=== PATIENT | male | born 1950 | race Caucasian/White ===

== ENCOUNTER 2019-09-29 14:13 | Emergency (ER) | payer OTHER, SELFPAY ==
[2019-09-29 14:14] VITALS: BP 186/95; PULSE 105; RESP 16; TEMP 36.8; O2SAT 98; BMI 30.2
--- NOTE | 2019-09-29 14:17 | EKG12_ITS ---
Test Reason : CP Blood Pressure : / mmHG Vent. Rate : 104 BPM Atrial Rate : 104 BPM P-R Int : 196 ms QRS Dur : 094 ms QT Int : 356 ms P-R-T Axes : 052 046 077 degrees QTc Int : 468 ms Sinus tachycardia with occasional Premature ventricular complexes Possible Left atrial enlargement Nonspecific ST and T wave abnormality Abnormal ECG Confirmed by SASHA SHANE, ARUNA ([id number]), editor book CLEM LEOS ([id number]) on 10/04/2019 8:43:51 AM Referred By: ODELL Confirmed By:MEGHANA BAEZ MD
[2019-09-29 15:49] LABS: Absolute Lymphocyte Count 1.32 X10^3/uL (0.83-4.51); Absolute Neutrophil Count 4.6 X10^3/uL (2.0-7.7); Basophil# 0.02 X10^3/uL; Basophil% 0.3 % (0-1); Eosinophil# 0.06 X10^3/uL; Eosinophils% 0.9 % (0-5); Hematocrit 45.7 % (40-54); Hemoglobin 15.5 g/dL (13.0-16.5); Lymphocyte # 1.32 X10^3/ul (4.0); Lymphocyte % 20.5 % (19-41); Mean Corp Hgb Conc 33.9 g/dL (32-36); Mean Corpuscular Hgb 30.8 pg (27.0-32.0); Mean Corpuscular Volume 90.7 fL (80-94); Mean Platelet Vol. 9.8 fl (6.2-12.0); Monocyte# 0.42 X10^3/uL; Monocyte% 6.5 % (0-10); NRBC Flagged by Analyzer 0 % (0-5); Neutrophil % 71.6 % (47-70); Platelet Count 232 K/mm3 (150-450); RBC Distribution Width CV 12.2 % (11.6-14.6); RBC Distribution Width SD 40.3 fl (35.1-43.9); Red Blood Count 5.04 M/mm3 (4.6-6.2); White Blood Count 6.4 K/mm3 (4.4-11.0)
[2019-09-29 16:02] LABS: Anion Gap 3 (5-15); BUN 14 mg/dL (7-18); BUN/Creat Ratio 11.2 RATIO (10-20); Chloride 106 mmol/L (98-107); Creatinine, Serum 1.25 mg/dL (0.70-1.30); EST Glomerular Filtration Rate 61 mL/min (>60); Est Glom Filt Rate - Afr Amer 74 mL/min (>60); Estimated Creatinine Clearance 61.08 ml/min; Glucose 194 mg/dL (74-106); Potassium 3.9 mmol/L (3.5-5.1); Sodium Level 136 mmol/L (136-145)
--- NOTE | 2019-09-29 16:06 | RAD_ITS ---
STUDY: X-RAY CHEST REASON FOR EXAM: Male, 68 years old. DIZZINESS WITH WEAKNESS NAUSEA AND CHEST PAIN TECHNIQUE: PA and lateral views of the chest. COMPARISON: 09-05-14. FINDINGS: Cardiac silhouette unremarkable. Pulmonary vascularity unremarkable. Aorta unremarkable. Median sternotomy wires and mediastinal clips are noted. Right upper quadrant surgical clips are seen. No focal airspace opacities. No pleural effusions. Right upper lobe granuloma. Upper abdomen unremarkable. Osseous structures intact. No pneumothorax. RAD/Chest PA and Lateral IMPRESSION: No acute cardiopulmonary findings Electronically Signed: Mohit Canales, at 16:29 EST Tel , Service support ,
[2019-09-29 16:29] LABS: Partial Thromboplast Time 30.8 Seconds (24.1-36.2)
--- NOTE | 2019-09-29 16:59 | ED.DCSUM_ITS ---
History of Present Illness Chief Complaint: Chest Pain Informant: Patient, Significant Other Onset: Month(s) - 2 Timing: Intermittent, Lasts - seconds-minutes Quality: soreness Location: left chest Current Severity: gone Maximum Severity: Mild Worsened by: nothing Relieved by: nothing in particular Associated Symptoms: intermittent vertigo/spinning w/ nausea, fatigue, sweats Narrative: Patient presenting with intermittent dizziness that is spinning in nature and triggered with position/head movements, they have been intermittent for 2 months. He saw ENT for this in the past and had wax cleaned out of his ears which helped it, so he did that 2 or 3 weeks ago, seen Dr. Kumar, had wax cleaned out of his ears but states episodes are still occurring. He was advised that if this occurs, to return to him for reevaluation. He denies any tinnitus, headaches or focal neurologic symptoms with it. His vision spins around when he has symptoms but he denies diplopia. Separate from this, he gets occasional left-sided chest discomfort that is nonpleuritic and last for seconds at a time. He states for couple months he has felt like he is not well rested in the mornings and tired, he states he feels fine right now and has none of these symptoms currently but when he had an episode of fatigue earlier and not feeling well, due to vertigo according to the patient and had some sweating, his family convinced him to come be evaluated. He had a STEMI at his last visit here 2014, and was transferred emergently to [place] in [place], where the patient states subsequently he had a 5 way bypass. He states he follows with his PCP ever since then, has not seen a varnish mixer, and does not take aspirin other than the 4 baby aspirin that were given to him by EMS today. - Past Medical History (1) CAD (coronary artery disease) Status: Chronic Past Medical History - Allergies and Home Meds Allergies/Adverse Reactions: Allergies No Known Allergies Allergy (Verified 09/05/14 03:16) Primary Care Physician: Jagjit Lopez NP-C [Primary Care Provider] - Surgical History: cholecystectomy, coronary bypass surgery Lives: With Family Smoking Status: Never smoker Review of Systems General: Reports: Malaise, Sweats. Denies: Chills, Fever Eyes: Denies: Visual changes - bilaterally, Diplopia ENT: Denies: Rhinorrhea, Sore throat Cardiovascular: Reports: Chest pain. Denies: Palpitations Respiratory: Denies: Dyspnea, Cough, Dyspnea on exertion Gastrointestinal: Reports: Nausea - when vertiginous. Denies: Abdominal pain, Vomiting, Diarrhea, Melena, Hematochezia Genitourinary: Denies: Dysuria, Hematuria, Frequency Musculoskeletal: Denies: Back pain, Swelling, Extremity Pain Skin: Denies: Rash, Wounds Neurological: Reports: - - Intermittent vertigo. Denies: Headache, Weakness, Numbness Physical Exam Vital Signs/Narrative: Vital Signs Temp Pulse Resp BP Pulse Ox 09/29/19 14:14 98.2 F 105 H 16 186/95 H 98 Inital Vital Signs reviewed: Yes General: Well nourished, Well developed, No Acute Distress Head: Normocephalic, Atraumatic Eyes: Perrl, EOMI ENT: Moist mucous membranes, No rhinorrhea, TM's clear Neck: Supple, Nontender, No lymphadenopathy, No JVD Cardiovascular: Regular rate, Regular rhythm, No murmurs Respiratory: No distress, CTA bilaterally, Chest nontender Abdomen: Soft, Nontender, Nondistended, Normal bowel sounds Back: Nontender, Normal Inspection Extremities: Nontender, No edema. Negative for: Calf Tenderness Skin: Normal color, No rash Neurological: Alert, Oriented x3, Cranial nerves II-XII grossly intact, Normal Strength, Normal Sensation, Normal Gait, - - nml FTN and HTS bilat Psychological: Normal affect, Normal Mood Diagnostic/Tx/Re-eval Impressions Chest X-Ray 09/29/19 16:06 IMPRESSION: No acute cardiopulmonary findings Electronically Signed: Mohit Canales, at 16:29 EST Tel , Service support , 09/29/19 16:06 Chest PA and Lateral [RAD] Stat Laboratory Results 09/29/19 09/29/19 09/29/19 14:42 14:42 14:42 WBC 6.4 RBC 5.04 Hgb 15.5 Hct 45.7 MCV 90.7 MCH 30.8 MCHC 33.9 RDW Std Deviation 40.3 RDW Coeff of Jennie 12.2 Plt Count 232 MPV 9.8 Immature Gran % (Auto) 0.200 Neut % (Auto) 71.6 H Lymph % (Auto) 20.5 [place] % (Auto) 6.5 Eos % (Auto) 0.9 Baso % (Auto) 0.3 Absolute Neuts (auto) 4.6 Absolute Lymphs (auto) 1.32 Nucleated RBC % 0 APTT 30.8 Sodium 136 Potassium 3.9 Chloride 106 Carbon Dioxide 27.0 Anion Gap 3 L BUN 14 Creatinine 1.25 Estim Creat Clear Calc 61.08 Est GFR (MDRD) Af Amer 74 Est GFR (MDRD) Non-Af 61 BUN/Creatinine Ratio 11.2 Glucose 194 H Calcium 9.0 Troponin I < 0.015 - Rhythm Strip Rhythm Strip: Sinus Tach Rate: 104 Ectopy: None - EKG Initial EKG Interpretation: Sinus Rhythm, No Acute Injury Pattern, - - PVCs. borderline prolonged QTc. Prior: Changed - prior only EKG showed STEMI; no acute injury here. - Medical Decision Making Patient's work-up was unremarkable. I suspect most of his symptoms are due to peripheral vertigo, his chest discomfort is likely noncardiac, however I do recommend that he take aspirin 81 mg every day, and follow-up with 1 of our varnish mixer since he would prefer to stay in our hospital/city/system and has not seen a varnish mixer since his CABG or take an aspirin. He has no history of internal bleeding or other life-threatening bleeding. I advised that he follow-up with ENT. I do not think he needs to be admitted for the symptoms that are been intermittent for 2 months with a negative work-up at this time. Patient is comfortable with this plan, and agrees to prn meclizine, which I prescribed him. ED Disposition - Plan for ED Patient: Disposition: Home or Assisted Living Diagnosis: Intermittent left-sided chest pain, Peripheral vertigo, unspecified Instructions: CHEST PAIN, Uncertain Cause, VERTIGO, Unspecified Prescriptions: Meclizine HCl [Antivert] 25 mg PO TID PRN PRN #16 tab PRN Reason: Dizziness Transmission Status: Pending to [id number] Referrals: Jagjit Lopez, TIERRA-C [Primary Care Provider] - Jose North MD [STAFF PHYSICIAN] - (Call for appointment) Stewart Kumar MD [STAFF PHYSICIAN] - (Call for appointment) Additional Instructions: Take daily aspirin 81 mg until you see cardiology or you are told otherwise
[2019-09-29 17:03] VITALS: BP 154/99; PULSE 85; RESP 16; O2SAT 94
== END 2019-09-29 17:23 | disposition home or self-care (01) ==
PROVIDERS: Emergency Provider Emergency Medicine; PCP Nurse Practitioner Family
DX: R07.89 Other chest pain (principal); H81.399 Other peripheral vertigo, unspecified ear; I25.10 Atherosclerotic heart disease of native coronary artery without angina pectoris; I25.2 Old myocardial infarction; Z95.1 Presence of aortocoronary bypass graft
CPT/HCPCS: 71046; 80048; 84484; 85025; 85730; 93005; 99285; A4216

== ENCOUNTER 2020-06-14 20:41 | Emergency (ER) | payer MEDICARE, OTHER, SELFPAY ==
[2020-06-14 20:55] VITALS: BP 136/80; PULSE 110; RESP 17; TEMP 37.7; O2SAT 93; BMI 26.1
[2020-06-14 21:00] VITALS: BP 122/90; PULSE 109; RESP 22; TEMP 37.7; O2SAT 94
--- NOTE | 2020-06-14 21:21 | ED.RN ---
PULLED OLD SYL FOR
--- NOTE | 2020-06-14 21:25 | RAD_ITS ---
STUDY: X-RAY CHEST REASON FOR EXAM: Male, 69 years old. Fever x1 wk, cough. TECHNIQUE: Single frontal view of the chest. COMPARISON: 09/29/2019 FINDINGS: There are nonspecific opacities within the mid and lower lungs bilaterally. Sternal cerclage wires are present from a prior sternotomy. The cardiac silhouettes within normal limits. Normal mediastinum and alem. Normal visualized pulmonary arteries. Normal visualized aortic arch and descending thoracic aorta. Normal visualized thoracic spine. Normal visualized ribs, clavicles, and shoulders. There are surgical clips within the right upper quadrant of the abdomen and cystoscopy with prior cholecystectomy. RAD/Chest 1 View (Portable) IMPRESSION: Nonspecific bilateral opacities may be secondary to a multifocal pneumonia. Electronically Signed: Liz Hua MD at 21:54 EST Tel , Service support ,
--- NOTE | 2020-06-14 21:27 | ED.DCSUM_ITS ---
- ER Visit Summary Date of Service: 06/14/20 Chief Complaint: Fever for a week. History of Present Illness: The patient is a 69 M history of prior throat cancer, CAD, IA and 5 way bypass. Patient states for the last week since last has had a fever between 101 - 106. He denies nausea vomiting diarrhea. He denies dysuria or hematuria. He denies chest pain. He denies cough or shortness of breath. He denies any abdominal pain. Says he never had a fever like this before. Physical Examination: Appearing older male no acute distress vital signs stable. Current temperature nine 9.8. Pulse ox 94% on room air no signs hypoxia. HEENT exam unremarkable. Moist mucous membranes. Neck nontender no lymphadenopathy. Lungs clear to auscultation bilaterally. Heart regular rhythm rate about 107. Abdomen soft nontender normal bowel sounds no peritoneal signs. Extremities moves all 4. No edema. Back nontender. Skin unremarkable. Neurologically is awake alert with no focal motor deficits. Test Results: Chest x-ray shows bilateral infiltrates consistent with either patchy pneumonia or Covid pneumonia most likely Covid pneumonia. Portable 1 view film read both myself and the radiologist. EKG sinus tachycardia rate of 107 no acute signs of IA or ischemia. CBC shows a white count of 7. Hemoglobin of 14 no bands. Chemistry sodium 131 normal gap BUN of 21 creatinine 1.2. Liver enzymes normal. UA normal. Lactate 1.1. Blood cultures pending. Covid pending. Emergency Department Course and Treatment: Patient should undergo work-up for Covid and fever of unknown etiology. Will be treated with IV fluids. Repeat exam patient is doing well at 2315. He is comfortable being discharged home. He stable vital signs. Is not complaining of any shortness of breath. Treatment Plan: 1 dose of Zithromax in the emergency department p.o. Zithromax at home for possible bacterial pneumonia but most likely this is Covid pneumonitis. Tylenol for fever. Follow-up with his primary care provider. Return if worse. Disposition: dc Impression: Acute fever Covid pneumonitis This note was generated with [employer] software. It may contain incorrect words, spelling, and punctuation that were not noted in review of the chart prior to signing ED Disposition - Plan for ED Patient: Referrals: Jagjit Lopez ADMINISTRATIVE VOLUNTEER, ADMINISTRATIVE VOLUNTEER-C [Primary Care Provider] -
--- NOTE | 2020-06-14 21:35 | EKG12_ITS ---
Test Reason : SOB Blood Pressure : / mmHG Vent. Rate : 107 BPM Atrial Rate : 107 BPM P-R Int : 160 ms QRS Dur : 096 ms QT Int : 328 ms P-R-T Axes : 046 039 056 degrees QTc Int : 437 ms Sinus tachycardia Otherwise normal ECG Confirmed by TIFF SHANE, SEBASTIAN ([id number]), editorial manager CLEM LEOS ([id number]) on 06/20/2020 8:38:32 AM Referred By: PABLO Confirmed By:SEBASTIAN MATTHEW MD
[2020-06-14 21:41] VITALS: BP 133/79; PULSE 95; RESP 24; O2SAT 94
[2020-06-14 21:44] LABS: Absolute Lymphocyte Count 0.41 X10^3/uL (0.83-4.51); Absolute Neutrophil Count 7.1 X10^3/uL (2.0-7.7); Basophil# 0.02 X10^3/uL; Basophil% 0.3 % (0-1); Hemoglobin 14.6 g/dL (13.0-16.5); Lymphocyte # 0.41 X10^3/ul (4.0); Lymphocyte % 5.2 % (19-41); Mean Corpuscular Hgb 30.9 pg (27.0-32.0); Mean Corpuscular Volume 91.1 fL (80-94); Mean Platelet Vol. 9.8 fl (6.2-12.0); Monocyte# 0.41 X10^3/uL; Monocyte% 5.2 % (0-10); NRBC Flagged by Analyzer 0 % (0-5); Neutrophil # 7.08 X10^3/uL (2.7-7.7); POSITIVE DIFFERENTIAL YES; Platelet Count 255 K/mm3 (150-450); RBC Distribution Width CV 12.1 % (11.6-14.6); RBC Distribution Width SD 40.2 fl (35.1-43.9); Red Blood Count 4.72 M/mm3 (4.6-6.2); White Blood Count 7.9 K/mm3 (4.4-11.0)
[2020-06-14 21:45] LABS: Differential Indicated SCAN CRITERIA MET
[2020-06-14 21:57] LABS: ALB/GLOB Ratio 0.7 RATIO (0.9-2.4); AST(SGOT) 25 U/L (15-37); Alanine Aminotransfer ALT/SGPT 35 U/L (16-61); Albumin, Serum 3.1 g/dL (3.2-5.0); Alkaline Phosphatase 116 U/L (45-117); Anion Gap 7 (5-15); BUN 21 mg/dL (7-18); BUN/Creat Ratio 17.2 RATIO (10-20); Calcium,Total 8.7 mg/dL (8.5-10.1); Chloride 99 mmol/L (98-107); Creatinine, Serum 1.22 mg/dL (0.70-1.30); EST Glomerular Filtration Rate 63 mL/min (>60); Est Glom Filt Rate - Afr Amer 76 mL/min (>60); Estimated Creatinine Clearance 61.72 ml/min; Globulin 4.3 g/dL (2.2-4.2); Glucose 147 mg/dL (74-106); Lactic Acid 1.1 mmol/L (0.4-1.9); Potassium 3.9 mmol/L (3.5-5.1); Protein, Total 7.4 g/dL (6.4-8.2); Sodium Level 131 mmol/L (136-145)
[2020-06-14 22:00] VITALS: BP 133/79; PULSE 95; RESP 24; TEMP 37.1; O2SAT 96
[2020-06-14 22:15] LABS: Bacteria 0 SEEN /hpf (None Seen); Mucous, Urine 0 SEEN /hpf (<or=2+); White Blood Cells 0 SEEN /hpf (0-5)
[2020-06-14 22:26] LABS: Differential Comment SCANNED
[2020-06-14 22:26] LABS: Color, Urine Yellow (Yellow); Glucose, Dipstick Normal (Normal); Ketone-Dipstick Negative (Negative); Leukocyte Esterase-Dipstick Negative /ul (Negative); Nitrite-Dipstick Negative (Negative); Occult Blood-Urine 25 /ul (Negative); Protein-Dipstick 30 mg/dl (Negative); Specific Gravity, Urine 1.015 (1.002-1.030); Urine Bilirubin Dipstick Negative (Negative); Urine Clarity Clear (Clear); Urine Urobilinogen Normal (Normal)
[2020-06-14 22:43] LABS: Squamous Epithelial Cells - UA 0-5 SEEN /hpf (0-5)
[2020-06-14 22:44] LABS: Red Blood Cells-Urine 0-5 SEEN /hpf (0-5)
[2020-06-14 23:00] VITALS: BP 129/68; PULSE 90; RESP 25; TEMP 37.1; O2SAT 95
--- NOTE | 2020-06-14 23:17 | DCINST.ED_ITS ---
ED Disposition - Plan for ED Patient: Disposition: Home or Assisted Living Instructions: ED PNEUMONITIS Adult Prescriptions: Azithromycin [Zithromax] 250 mg PO DAILY #4 tab Prescription Printed Referrals: Jagjit Lopez NUISANCE WILDLIFE CONTROL OPERATOR, NUISANCE WILDLIFE CONTROL OPERATOR-C [Primary Care Provider] - 3-5 Days Additional Instructions: Most likely you have Covid pneumonia. We are putting you on antibiotic to treat the possibility of a bacterial pneumonia but most likely this is viral Covid pneumonia. Plenty of fluids and rest. Tylenol for fever. May use limited Motrin also. Follow-up with your primary care provider next several days. Return emerge department if feeling a lot worse.
[2020-06-14 23:46] VITALS: BP 134/73; PULSE 88; RESP 20; O2SAT 96
[2020-06-14] MEDS: Azithromycin 250 MG Tablet 500 MG PO (23:51)
== END 2020-06-15 00:03 | disposition home or self-care (01) ==
PROVIDERS: Emergency Provider Emergency Medicine; PCP Nurse Practitioner Family
DX: U07.1 COVID-19 (principal); J12.89 Other viral pneumonia; I25.2 Old myocardial infarction; I25.10 Atherosclerotic heart disease of native coronary artery without angina pectoris; Z95.1 Presence of aortocoronary bypass graft; Z85.818 Personal history of malignant neoplasm of other sites of lip, oral cavity, and pharynx
CPT/HCPCS: 71045; 80053; 81001; 83605; 85025; 87040; 87635; 93005; 99285; J7030; A4216; U0003

== ENCOUNTER 2020-06-16 08:19 | Inpatient (IN) | payer MEDICARE, OTHER, SELFPAY ==
[2020-06-16] VITALS (13 sets, daily range): BP systolic 110–139; BP diastolic 63–82; PULSE 79–114; RESP 17–28; TEMP 36.6–38.8; O2SAT 86–96; BMI 25.7; BMI 25.4
--- NOTE | 2020-06-16 09:01 | EKG12_ITS ---
Test Reason : SOB Blood Pressure : / mmHG Vent. Rate : 107 BPM Atrial Rate : 107 BPM P-R Int : 162 ms QRS Dur : 092 ms QT Int : 318 ms P-R-T Axes : 048 047 073 degrees QTc Int : 424 ms Sinus tachycardia Possible Left atrial enlargement Nonspecific T wave abnormality Abnormal ECG Confirmed by RUSLAN SHANE, SANDRA ([id number]), news video editor CLEM LEOS ([id number]) on 06/16/2020 11:04:27 AM Referred By: FLORIAN Confirmed By:SANDRA MERCER MD
[2020-06-16 09:10] LABS: Absolute Lymphocyte Count 0.25 X10^3/uL (0.83-4.51); Absolute Neutrophil Count 9.7 X10^3/uL (2.0-7.7); Basophil# 0.02 X10^3/uL; Basophil% 0.2 % (0-1); Hematocrit 41.7 % (40-54); Hemoglobin 14.2 g/dL (13.0-16.5); Lymphocyte # 0.25 X10^3/ul (4.0); Lymphocyte % 2.4 % (19-41); Mean Corp Hgb Conc 34.1 g/dL (32-36); Mean Corpuscular Hgb 31.3 pg (27.0-32.0); Mean Corpuscular Volume 91.9 fL (80-94); Mean Platelet Vol. 10.1 fl (6.2-12.0); Monocyte# 0.31 X10^3/uL; NRBC Flagged by Analyzer 0 % (0-5); Neutrophil # 9.73 X10^3/uL (2.7-7.7); Neutrophil % 93.7 % (47-70); POSITIVE DIFFERENTIAL YES; POSITIVE MORPHOLOGY YES; Platelet Count 255 K/mm3 (150-450); RBC Distribution Width CV 12.4 % (11.6-14.6); RBC Distribution Width SD 42.3 fl (35.1-43.9); Red Blood Count 4.54 M/mm3 (4.6-6.2); White Blood Count 10.4 K/mm3 (4.4-11.0)
--- NOTE | 2020-06-16 09:11 | ED.DCSUM_ITS ---
History of Present Illness Informant: Patient Onset: Days Narrative: 69-year-old male with a past medical history of ID, CABG presents with a fever, cough, and shortness of breath x1 week. He was seen here 2 days ago and had a chest x-ray showing bilateral pneumonia. Outpatient Covid test is pending. He was sent home with Zithromax and is on the third day of treatment. He states he was using home oxygen he has on hand for his daughter and it ran out. On room air he was 85%. He does not typically use oxygen. He has no history of asthma or COPD. He states his is sick with similar symptoms. He denies loss of taste or smell, chest pain, hemoptysis, abdominal pain, nausea, vomiting, diarrhea, or urinary symptoms. <Miya Tatum - Last Filed: 06/16/20 12:44> <Clifford Smallwood - Last Filed: 06/16/20 12:55> Chief Complaint: Shortness of Breath Past Medical History Past Medical History: - - ID, CABG Surgical History: cholecystectomy, coronary bypass surgery Smoking Status: Former smoker <Miya Tatum - Last Filed: 06/16/20 12:44> <Clifford Smallwood - Last Filed: 06/16/20 12:55> - Allergies and Home Meds Allergies/Adverse Reactions: Allergies No Known Allergies Allergy (Verified 06/16/20 09:02) Primary Care Physician: Jagjit Lopez INVENTORY AND PRICING ASSOCIATE, INVENTORY AND PRICING ASSOCIATE-C [Primary Care Provider] - Review of Systems General: Reports: Chills, Fever, Malaise Eyes: Denies: Visual changes - bilaterally, Diplopia ENT: Denies: Rhinorrhea, Sore throat Cardiovascular: Denies: Chest pain, Palpitations Respiratory: Reports: Dyspnea, Cough, Dyspnea on exertion. Denies: Orthopnea Gastrointestinal: Denies: Abdominal pain, Nausea, Vomiting, Diarrhea, Melena, Hematochezia Genitourinary: Denies: Dysuria, Hematuria, Frequency Musculoskeletal: Denies: Back pain, Extremity Pain Skin: Denies: Rash, Wounds Neurological: Denies: Headache, Weakness, Numbness <Miya Tatum - Last Filed: 06/16/20 12:44> Physical Exam Vital Signs/Narrative: Vital Signs Temp Pulse Resp BP Pulse Ox 06/16/20 08:23 101.9 F H 111 H 27 H 124/72 H 91 06/16/20 08:20 101.9 F H 114 H 23 H 124/72 H 86 General: Well nourished, Well developed, No Acute Distress Head: Normocephalic, Atraumatic Eyes: Perrl, EOMI ENT: Moist mucous membranes, No rhinorrhea Neck: Supple, Nontender Cardiovascular: Regular rate, Regular rhythm, No murmurs Respiratory: No distress, - - Crackles in right lung base, otherwise clear to auscultation Abdomen: Soft, Nontender, Nondistended, Normal bowel sounds Back: Nontender, Normal Inspection Extremities: Nontender, No edema Skin: Normal color, No rash Neurological: Alert, Oriented x3, Cranial nerves II-XII grossly intact Psychological: Normal affect, Normal Mood <Miya Tatum - Last Filed: 06/16/20 12:44> Vital Signs/Narrative: Vital Signs Temp Pulse Resp BP Pulse Ox 06/16/20 12:03 99.8 F H 100 17 117/74 96 06/16/20 11:30 99.8 F H 100 28 H 139/79 H 94 06/16/20 10:30 99.2 F H 101 H 28 H 130/66 H 96 06/16/20 10:28 99.2 F H 101 H 28 H 130/66 H 96 <Clifford Smallwood - Last Filed: 06/16/20 12:55> Diagnostic/Tx/Re-eval Clinical Impression(s) from Imaging Studies Chest X-Ray 06/16/20 09:20 IMPRESSION: Since prior study, there has been progressive bilateral perihilar infiltrates worse on the right side. Electronically Signed: Mat Elizalde, at 9:51 EST , Service support , Laboratory Data 06/16/20 06/16/20 06/16/20 08:21 08:21 08:21 WBC 10.4 RBC 4.54 L Hgb 14.2 Hct 41.7 MCV 91.9 MCH 31.3 MCHC 34.1 RDW Std Deviation 42.3 RDW Coeff of Jennie 12.4 Plt Count 255 MPV 10.1 Immature Gran % (Auto) 0.700 Neut % (Auto) 93.7 H Lymph % (Auto) 2.4 L [place] % (Auto) 3.0 Eos % (Auto) 0.0 Baso % (Auto) 0.2 Absolute Neuts (auto) 9.7 H Absolute Lymphs (auto) 0.25 L Nucleated RBC % 0 Differential Comment COMMENT Sodium 133 L Potassium 4.3 Chloride 101 Carbon Dioxide 26.0 Anion Gap 6 BUN 25 H Creatinine 1.14 Estim Creat Clear Calc 66.05 Est GFR (MDRD) Af Amer 82 Est GFR (MDRD) Non-Af 68 BUN/Creatinine Ratio 21.9 H Glucose 116 H Lactic Acid 1.2 Calcium 8.2 L Total Bilirubin 0.60 AST 42 H ALT 36 Alkaline Phosphatase 116 Total Protein 6.9 Albumin 2.7 L Globulin 4.2 Albumin/Globulin Ratio 0.6 L COVID-19 (LOUISE) 06/16/20 09:15 WBC RBC Hgb Hct MCV MCH MCHC RDW Std Deviation RDW Coeff of Jennie Plt Count MPV Immature Gran % (Auto) Neut % (Auto) Lymph % (Auto) [place] % (Auto) Eos % (Auto) Baso % (Auto) Absolute Neuts (auto) Absolute Lymphs (auto) Nucleated RBC % Differential Comment Sodium Potassium Chloride Carbon Dioxide Anion Gap BUN Creatinine Estim Creat Clear Calc Est GFR (MDRD) Af Amer Est GFR (MDRD) Non-Af BUN/Creatinine Ratio Glucose Lactic Acid Calcium Total Bilirubin AST ALT Alkaline Phosphatase Total Protein Albumin Globulin Albumin/Globulin Ratio COVID-19 (LOUISE) Detected - Rhythm Strip Rhythm Strip: Sinus Tach Rate: 107 Ectopy: None - Medical Decision Making Patient appears well nontoxic. He was initially 85% on room air and was placed on 3 L O2 and is maintaining 92% or above, he had sinus tachycardia in the rate of 100s, otherwise normal vitals. Normal cardiac exam. Lungs had mild expiratory wheezing. Labs show no leukocytosis, sodium 133, otherwise unremarkable. Covid positive. Chest x-ray shows interval worsening bilateral infiltrates. He was treated with Decadron, Zithromax, and Rocephin. He will need admitted for Covid pneumonia. Discussed with hospitalist who was agreeable and he was transferred to the floor in stable condition. <Miya Tatum - Last Filed: 06/16/20 12:44> - Medical Decision Making I read the patient with our physician golf course assistant. Patient was diagnosed yesterday by myself with Covid pneumonitis. Was sent home. Has oxygen at home but he no longer has oxygen. He states he is actually feeling worse and more short of breath. Physical exam elderly male on oxygen is 96%. Off O2 he is 85% and hypoxic. Temperature 99.8. He does not look septic or toxic. He is in no distress. He is actually reasonably comfortable on O2. HEENT exam unremarkable. Lungs clear to auscultation bilaterally. Heart regular rhythm no murmur. Abdomen soft nontender. Moving all 4 extremities. No edema. Neurologically is awake and alert. Patient started on IV Decadron. Spoke to the hospitalist he will be admitted to the Covid cohort unit. Impressions: 1. Acute Covid pneumonitis with hypoxia <Clifford Smallwood - Last Filed: 06/16/20 12:55> ED Disposition <Miya Tatum - Last Filed: 06/16/20 12:44> <Clifford Smallwood - Last Filed: 06/16/20 12:55> - Plan for ED Patient: Disposition: Acute Care Hospital [facility] Diagnosis: Pneumonia due to COVID-19 virus, Hypoxia Referrals: Jagjit Lopez INVENTORY AND PRICING ASSOCIATE, INVENTORY AND PRICING ASSOCIATE-C [Primary Care Provider] -
[2020-06-16 09:15] LABS: Differential Indicated SCAN CRITERIA MET
--- NOTE | 2020-06-16 09:20 | RAD_ITS ---
STUDY: X-RAY CHEST REASON FOR EXAM: Male, 69 years old. Fever, low oxygen level, recently tested for COVED, results no back yet TECHNIQUE: Single AP portable view of the chest. COMPARISON: Comparison is made with prior study dated 06/14/2020. FINDINGS: EKG electrodes are seen. Since prior study, there has been progressive bilateral perihilar infiltrates worse on the right side. Stable elevation of the right hemidiaphragm. There is no demonstrated pleural abnormality. Sternal cerclage wires and vascular clips are present from a prior sternotomy and coronary artery bypass graft procedure (CABG). Normal mediastinum and alem. Normal visualized pulmonary arteries. There is atherosclerotic tortuosity of the aortic arch and descending thoracic aorta. Normal visualized thoracic spine. Normal visualized ribs, clavicles, and shoulders. There is no demonstrated abnormality of the visualized soft tissue structures of the upper abdomen. RAD/Chest 1 View (Portable) IMPRESSION: Since prior study, there has been progressive bilateral perihilar infiltrates worse on the right side. Electronically Signed: Mat Elizalde, at 9:51 EST , Service support ,
[2020-06-16 09:27] LABS: Lactic Acid 1.2 mmol/L (0.4-1.9)
[2020-06-16 09:29] LABS: ALB/GLOB Ratio 0.6 RATIO (0.9-2.4); AST(SGOT) 42 U/L (15-37); Alanine Aminotransfer ALT/SGPT 36 U/L (16-61); Albumin, Serum 2.7 g/dL (3.2-5.0); Alkaline Phosphatase 116 U/L (45-117); Anion Gap 6 (5-15); BUN 25 mg/dL (7-18); BUN/Creat Ratio 21.9 RATIO (10-20); Calcium,Total 8.2 mg/dL (8.5-10.1); Chloride 101 mmol/L (98-107); Creatinine, Serum 1.14 mg/dL (0.70-1.30); EST Glomerular Filtration Rate 68 mL/min (>60); Est Glom Filt Rate - Afr Amer 82 mL/min (>60); Estimated Creatinine Clearance 66.05 ml/min; Globulin 4.2 g/dL (2.2-4.2); Glucose 116 mg/dL (74-106); Potassium 4.3 mmol/L (3.5-5.1); Protein, Total 6.9 g/dL (6.4-8.2); Sodium Level 133 mmol/L (136-145)
[2020-06-16] MEDS: dexAMETHasone 4 MG Tablet 6 MG PO (11:09)
[2020-06-16] MEDS: Ceftriaxone 1 GM/50 ML BAG IV (11:09)
[2020-06-16] MEDS: Acetaminophen 500 MG Tablet 1000 MG PO (12:02)
--- NOTE | 2020-06-16 12:58 | HP.PCM_ITS ---
Problem List (1) CAD (coronary artery disease) Status: Chronic Qualifiers: Coronary Disease-Associated Artery/Lesion type: unspecified vessel or lesion type [place] vs. transplanted heart: unspecified whether [place] or transplanted heart Associated angina: angina presence unspecified Qualified Code(s): I25.10 - Atherosclerotic heart disease of [place] coronary artery without angina pectoris (2) Hypoxia Status: Acute (3) Hypothyroidism Status: Chronic Qualifiers: Hypothyroidism type: unspecified Qualified Code(s): E03.9 - Hypothyroidism, unspecified (4) Pneumonia due to COVID-19 virus Status: Acute History of Present Illness Date of Admission: 06/16/20 Chief Complaint: SOB, cough, fever, headache - 8 days The patient is a 69 year old M with past medical history of CAD status post CABG, hypothyroidism, who started having fever, cough, shortness of breath ongoing since 08 June (8 days ago). Seen in the emergency department on 06/14/20, was not on oxygen. He was given azithromycin and discharged home. He comes in because of progressive shortness of breath. Patient has some diminished sense of taste but not smell. He denied any diarrhea or abdominal pain or nausea. His vitals in the ED showed temperature 101.9 F, heart rate 101, blood pressure 124/72, respiratory rate 22, SPO2 was 86% on room air, improved to 96% on 3 L of oxygen. WBC 10.4, Hb 14.2, Plt 255. D-dimer 1.67. Na 133, K 4.3, Cl 101, HCO3 26, BUN 25, Cr 1.14, Lactic 1.2, Procalcitonin 1.01. COVID-19 PCR detected. Chest X-ray showed progressive bilateral perihilar infil trates, worse on right side. Past Medical History Past Medical History (Chronic Problems): Chronic Problems CAD (coronary artery disease) (Chronic) Hypothyroidism (Chronic) Allergies No Known Allergies Allergy (Verified 06/16/20 09:02) Home Medications: Ambulatory Orders Medication Instructions Recorded Levothyroxine Sodium [Euthyrox] 112 mcg PO DAILY 06/14/20 Azithromycin [Zithromax] 250 mg PO DAILY 06/16/20 Surgical History: cholecystectomy, coronary bypass surgery Psychiatric History: No pertinent psych hx Lives: With Family Smoking Status: Former smoker Alcohol: None Drugs: None - *Family History Paternal History Items: Heart Disease, Hypertension Maternal History Items: No pertinent history Review of Systems Constitutional: Reports: Anorexia, Weakness, Fatigue. Denies: Chills, Fever, Weight Change Eyes: Denies: Blurred vision, Cataracts, Conjunctivae Inflammation, Drainage, Eyelid Inflammation HEENT: Denies: Difficulty Hearing, Difficulty Swallowing, Head Aches, Hearing Changes, Nasal bleeding, Sinus Congestion, Sinus Drainage, Sore Throat Cardiovascular: Reports: Light Headedness. Denies: Chest Pain, Claudication, Heaviness, Palpitations Respiratory: Denies: Cough, Hemoptysis, Shortness of breath at rest, Shortness of breath upon exertion, Sputum production Gastrointestinal: Denies: Abdominal Pain, Constipation, Hematemesis, Hematochezia, Nausea, Vomiting Genitourinary: Denies: Dysuria, Frequency, Incontinence Musculoskeletal: Denies: Joint Pain, Joint stiffness, Joint swelling, Joint Tenderness Skin: Denies: Dryness, Jaundice, Pruritis, Rash, Wounds Neurological: Denies: Numbness, Tingling, Focal weakness Psychiatric: Denies: Anxiety, Depression, Homicidal Ideations, Suicidal Ideations Hematologic/ Lymphatic: Denies: Easy Bruising, Easy Bleeding VTE Information - Inpt Only VTE Present on Admission: No VTE Pharm Prophylaxis ordered?: Yes Patient Problems: Active and Suspected Problems Pneumonia due to COVID-19 virus (Acute) Hypoxia (Acute) History of coronary artery bypass graft (Acute) - Physical Exam Vitals/I&O's: Vital Signs Temp Pulse Resp BP Pulse Ox 100.0 F H 106 H 27 H 136/82 H 92 06/16/20 12:54 06/16/20 12:54 06/16/20 12:54 06/16/20 12:54 06/16/20 12:54 Oxygen Flow Rate (L/min) 2 Oxygen Delivery Method Nasal Cannula Weight: 83.5 kg Body Mass Index (BMI) 25.7 Intake and Output for Last 24 Hours 06/14/20 06/15/20 06/16/20 23:59 23:59 23:59 Intake Total 305 / 305 Balance 305 / 305 General: Alert, Oriented x3, Cooperative, - - on 3L oxygen HEENT: Atraumatic, PERRLA, EOMI, Normocephalic Oral: Moist Mucosa Neck: Supple Lungs: Clear to auscultation, Normal air movement Cardiovascular: Regular rate, Regular Rhythm, Normal S1, Normal S2, No murmurs Abdomen: Bowel Sounds Present, Soft, Non Tender, Non-Distended, No Hepato- splenomegaly Extremities: No edema Skin: No rashes, No breakdown Musculoskeletal: No Tenderness to Palpation of Joints or Extremities Lymphatic: No Cervical, Supraclavicular, or Inguinal Adenopathy Neurological: Cranial nerves II-XII grossly intact Psych/Mental Status: Normal Affect, Appropriate Laboratory Results 06/16/20 08:21: WBC 10.4, RBC 4.54 L, Hgb 14.2, Hct 41.7, MCV 91.9, MCH 31.3, MCHC 34.1, RDW Std Deviation 42.3, RDW Coeff of Jennie 12.4, Plt Count 255, MPV 10.1, Immature Gran % (Auto) 0.700, Neut % (Auto) 93.7 H, Lymph % (Auto) 2.4 L, [place] % (Auto) 3.0, Eos % (Auto) 0.0, Baso % (Auto) 0.2, Absolute Neuts (auto) 9.7 H, Absolute Lymphs (auto) 0.25 L, Nucleated RBC % 0, Differential Comment COMMENT 06/16/20 08:21: Sodium 133 L, Potassium 4.3, Chloride 101, Carbon Dioxide 26.0, Anion Gap 6, BUN 25 H, Creatinine 1.14, Estim Creat Clear Calc 66.05, Est GFR (MDRD) Af Amer 82, Est GFR (MDRD) Non-Af 68, BUN/Creatinine Ratio 21.9 H, Glucose 116 H, Calcium 8.2 L, Total Bilirubin 0.60, AST 42 H, ALT 36, Alkaline Phosphatase 116, Total Protein 6.9, Albumin 2.7 L, Globulin 4.2, Albumin/Globulin Ratio 0.6 L 06/16/20 08:21: Lactic Acid 1.2 06/16/20 09:15: COVID-19 (LOUISE) Detected Assessment/Plan All Active Problems Pneumonia due to COVID-19 virus (Acute) Hypoxia (Acute) History of coronary artery bypass graft (Acute) 1. Acute hypoxic respiratory insufficiency secondary to acute COVID-19 pneumonia Continue with breathing treatments, IV steroids, encourage use of incentive spirometer. Wean off oxygen for SPO2 more than 94% 2. Elevated D-dimer, need to rule out PE, will start on therapeutic Lovenox, CTA of the chest. 3. Acute COVID-19 pneumonia with hypoxia Started on IV Decadron, will continue same ID and pulmonary consulted -started on remdesivir, plasma ordered 4. CAD status post CABG, denies any active cardiac symptoms 5. Hypothyroidism, continue on synthroid 6. DVT prophylaxis on Lovenox [place] Inpatient E&M: 54496 Subs Hosp L2
[2020-06-16 14:31] LABS: D-Dimer Quantitative (DVT/PE) 1.67 FEU/ug/m (0.27-0.49)
--- NOTE | 2020-06-16 14:38 | NURSING ---
Dr Carolina aware of D-dimer 1.67.
[2020-06-16] MEDS: Levothyroxine 112 MCG Tablet PO (15:07)
[2020-06-16] MEDS: Enoxaparin 80 MG/0.8 ML Syringe SC (15:11)
[2020-06-16 15:20] LABS: BNP,B-Type NATRIURETIC PEPTIDE 42.3 pg/mL (0-100)
[2020-06-16 15:28] LABS: Procalcitonin 1.01 ng/mL (0.00-0.09)
--- NOTE | 2020-06-16 15:36 | PCM.HP.ID ---
Problem List (1) Pneumonia due to COVID-19 virus Status: Acute Reason for Consult: covid Consulted by: Dr. Carolina History of Present Illness: The patient is a 69 year old M developed fever, cough, dyspnea, headache around 06/08/20. and disabled child at home also sick at the same time. No change in taste or smell, no n/v/d, no aches. Some mild fatigue. No loss of appetite. Came to ED about 2 days ago, given azithro, sx worsened, couldn't sleep with coughing. Came back to ED, admitted with dose of azithro/ceftriaxone/dex. Full ROS performed and neg except as noted above. - Medical History Past Medical History (Chronic Problems): Chronic Problems CAD (coronary artery disease) (Chronic) Allergies/Adverse Reactions: Allergies No Known Allergies Allergy (Verified 06/16/20 09:02) Home Medications: Ambulatory Orders Medication Instructions Recorded Levothyroxine Sodium [Euthyrox] 112 mcg PO DAILY 06/14/20 Azithromycin [Zithromax] 250 mg PO DAILY 06/16/20 - Social History SMOKING STATUS:: Former smoker Vital Signs Temp Pulse Resp BP Pulse Ox 98.2 F 87 20 H 123/69 H 93 06/16/20 14:18 06/16/20 14:18 06/16/20 14:18 06/16/20 14:18 06/16/20 14:18 Oxygen Flow Rate (L/min) 3 Oxygen Delivery Method Nasal Cannula Weight: 82.645 kg Body Mass Index (BMI) 25.4 Laboratory Tests Past 24 Hrs 06/16/20 06/16/20 06/16/20 08:21 08:21 08:21 WBC 10.4 RBC 4.54 L Hgb 14.2 Hct 41.7 MCV 91.9 MCH 31.3 MCHC 34.1 RDW Std Deviation 42.3 RDW Coeff of Jennie 12.4 Plt Count 255 MPV 10.1 Immature Gran % (Auto) 0.700 Neut % (Auto) 93.7 H Lymph % (Auto) 2.4 L [place] % (Auto) 3.0 Eos % (Auto) 0.0 Baso % (Auto) 0.2 Absolute Neuts (auto) 9.7 H Absolute Lymphs (auto) 0.25 L Nucleated RBC % 0 Differential Comment COMMENT D-Dimer Quant (PE/DVT) Sodium 133 L Potassium 4.3 Chloride 101 Carbon Dioxide 26.0 Anion Gap 6 BUN 25 H Creatinine 1.14 Estim Creat Clear Calc 66.05 Est GFR (MDRD) Af Amer 82 Est GFR (MDRD) Non-Af 68 BUN/Creatinine Ratio 21.9 H Glucose 116 H Lactic Acid 1.2 Calcium 8.2 L Total Bilirubin 0.60 AST 42 H ALT 36 Alkaline Phosphatase 116 B-Natriuretic Peptide Total Protein 6.9 Albumin 2.7 L Globulin 4.2 Albumin/Globulin Ratio 0.6 L Procalcitonin COVID-19 (LOUISE) 06/16/20 06/16/20 06/16/20 08:21 08:21 08:21 WBC RBC Hgb Hct MCV MCH MCHC RDW Std Deviation RDW Coeff of Jennie Plt Count MPV Immature Gran % (Auto) Neut % (Auto) Lymph % (Auto) [place] % (Auto) Eos % (Auto) Baso % (Auto) Absolute Neuts (auto) Absolute Lymphs (auto) Nucleated RBC % Differential Comment D-Dimer Quant (PE/DVT) 1.67 H* Sodium Potassium Chloride Carbon Dioxide Anion Gap BUN Creatinine Estim Creat Clear Calc Est GFR (MDRD) Af Amer Est GFR (MDRD) Non-Af BUN/Creatinine Ratio Glucose Lactic Acid Calcium Total Bilirubin AST ALT Alkaline Phosphatase B-Natriuretic Peptide 42.3 Total Protein Albumin Globulin Albumin/Globulin Ratio Procalcitonin 1.01 H COVID-19 (LOUISE) 06/16/20 09:15 WBC RBC Hgb Hct MCV MCH MCHC RDW Std Deviation RDW Coeff of Jennie Plt Count MPV Immature Gran % (Auto) Neut % (Auto) Lymph % (Auto) [place] % (Auto) Eos % (Auto) Baso % (Auto) Absolute Neuts (auto) Absolute Lymphs (auto) Nucleated RBC % Differential Comment D-Dimer Quant (PE/DVT) Sodium Potassium Chloride Carbon Dioxide Anion Gap BUN Creatinine Estim Creat Clear Calc Est GFR (MDRD) Af Amer Est GFR (MDRD) Non-Af BUN/Creatinine Ratio Glucose Lactic Acid Calcium Total Bilirubin AST ALT Alkaline Phosphatase B-Natriuretic Peptide Total Protein Albumin Globulin Albumin/Globulin Ratio Procalcitonin COVID-19 (LOUISE) Detected - Other Studies Radiology: [] reviewed Other Studies: [] Route of nutrition/ use of supplements: [] Nutritional Intake: [] IV Site: [] Osei Catheter: [] - Physical Exam General: Alert, Oriented x3, Cooperative HEENT: Atraumatic, PERRLA, EOMI Neck: Supple, No Nodes Lungs: Diminished Cardiovascular: Regular rate, Regular Rhythm Abdomen: Soft, Non Tender, Non-Distended Extremities: No edema Skin: No rashes IV Site: Peripheral, without redness Musculoskeletal: No Tenderness to Palpation of Joints or Extremities Neurological: Cranial nerves II-XII grossly intact - Assessment/Plan Antibiotics: [] Assessment/Plan: [] Active and Suspected Problems Pneumonia due to COVID-19 virus (Acute) Hypoxia (Acute) Hypothyroidism (Acute) Sx started 06/08/20. On dex, O2. Will change dex to po. Ddimer at 1.67, on full dose lovenox. Recommend CT-PE, will order. Fever here to 101.9. PCT was 1. Watching off of abx. Will start remdesivir. Reviewed EUA and risks/benefits of convalescent plasma, we agree to start it. Will follow, thank you, d/w Dr. Carolina
--- NOTE | 2020-06-16 15:55 | PCM.CONS.PUL ---
Problem List (1) History of coronary artery bypass graft Status: Acute (2) CAD (coronary artery disease) Status: Chronic Qualifiers: Coronary Disease-Associated Artery/Lesion type: unspecified vessel or lesion type [place] vs. transplanted heart: unspecified whether [place] or transplanted heart Associated angina: angina presence unspecified Qualified Code(s): I25.10 - Atherosclerotic heart disease of [place] coronary artery without angina pectoris (3) Pneumonia due to COVID-19 virus Status: Acute (4) Hypoxia Status: Acute (5) Hypothyroidism Status: Acute Qualifiers: Hypothyroidism type: unspecified Qualified Code(s): E03.9 - Hypothyroidism, unspecified Reason for Consult Date of Consultation: 06/16/20 Reason for Consultation: COVID-19 History of Present Illness: The patient is a 69 year old M, with past medical history listed below, who presented [facility] on 06/16/2020 secondary to progressive shortness of breath and hypoxia. Patient reportedly had presented to the ER 2 days prior and had an x-ray showing bilateral pneumonia. Patient had an outpatient Covid test sent at that time and was sent home on Zithromax. Patient states that he had taken Zithromax for 3 days, but became more more short of breath. Patient reportedly has a daughter with multiple medical needs and had a pulse ox at home. Patient was noted to be 85% on room air. Patient started oxygen, but when it ran out had to come in for evaluation. Patient does report that his is sick with similar type symptoms. Patient denies a loss of taste or smell. Patient does not have any chest pain, abdominal pain, nausea, vomiting, diarrhea or urinary symptoms. In the ER, patient was febrile to 101.9 ?F. Patient was also tachycardic at 114 bpm and saturating 86% on room air. Patient was placed on nasal cannula oxygen with improvement. Chest x-ray showed progression of bilateral infiltrates and laboratory work-up showed a leukocytosis of 10.4. Chemistries were relatively unremarkable. Lactate was 1.2 and a rapid Covid test came back positive. Patient was placed on nasal cannula oxygen and treated with Decadron, Zithromax and Rocephin and admitted to the floor for further evaluation. 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 Patient states he is exposed to sawdust, but denies any other occupational exposures. Patient does have a [id number] smoking history, but denies any alcohol or drugs. Patient has required supplemental oxygen previously, but this was after a CABG. Patient does not deal with respiratory issues on a daily basis. Patient has used inhalers in the past and has thought that he may benefit from them, but is never seen a housing inspectors or had a pulmonary function test that he remembers. Review of systems otherwise negative from a constitutional, HEENT, respiratory, cardiovascular, GI, genitourinary, musculoskeletal, skin, neurologic, psychiatric and hematologic system unless stated above. Past Medical History Past Medical History (Chronic Problems): Chronic Problems CAD (coronary artery disease) (Chronic) Allergies No Known Allergies Allergy (Verified 06/16/20 09:02) Home Medications: Ambulatory Orders Medication Instructions Recorded Levothyroxine Sodium [Euthyrox] 112 mcg PO DAILY 06/14/20 Azithromycin [Zithromax] 250 mg PO DAILY 06/16/20 Surgical History: cholecystectomy, coronary bypass surgery Smoking Status: Former smoker Tobacco Use: Cigarettes Review of Systems Comment: See HPI Patient Problems: Active and Suspected Problems Pneumonia due to COVID-19 virus (Acute) Hypoxia (Acute) Hypothyroidism (Acute) Objective: Chest x-ray was personally reviewed and shows progression of bilateral infiltrates. Patient does not have an echocardiogram or pulmonary function tests available for review at [facility]. - Physical Exam Vitals/I&O's: Vital Signs Temp Pulse Resp BP Pulse Ox 36.8 C 87 20 H 123/69 H 93 06/16/20 14:18 06/16/20 14:18 06/16/20 14:18 06/16/20 14:18 06/16/20 14:18 Oxygen Flow Rate (L/min) 3 Oxygen Delivery Method Nasal Cannula Weight: 82.645 kg Body Mass Index (BMI) 25.4 Intake and Output for Last 24 Hours 06/14/20 06/15/20 06/16/20 23:59 23:59 23:59 Intake Total 305 / 305 Balance 305 / 305 General: Alert, Oriented x3, Cooperative, No apparent distress, - - Speaking in full sentences. HEENT: Atraumatic, PERRLA, EOMI, Normocephalic, - - No scleral icterus or injection noted Oral: Moist Mucosa, No Gingival or Mucosal Lesions/ Ulcerations Neck: Supple, No JVD, No Nodes, Trachea Midline Lungs: No rhonchi, No rales, Diminished, Wheezes - And exhalation Cardiovascular: Regular Rhythm, Normal S1, Normal S2, No murmurs, No rub noted, No Gallop Abdomen: Bowel Sounds Present, Soft, Non Tender, Non-Distended Extremities: No clubbing, No cyanosis, No edema, Capillary Refill Less than 3 Seconds Skin: No rashes, No breakdown Musculoskeletal: No Tenderness to Palpation of Joints or Extremities Lymphatic: No Cervical, Supraclavicular, or Inguinal Adenopathy Neurological: Cranial nerves II-XII grossly intact, Neuro grossly intact, Motor Exam 5/5 strength throughout Psych/Mental Status: Alert and oriented to time, place, person, mood and affect Laboratory Results 06/16/20 08:21: WBC 10.4, RBC 4.54 L, Hgb 14.2, Hct 41.7, MCV 91.9, MCH 31.3, MCHC 34.1, RDW Std Deviation 42.3, RDW Coeff of Jennie 12.4, Plt Count 255, MPV 10.1, Immature Gran % (Auto) 0.700, Neut % (Auto) 93.7 H, Lymph % (Auto) 2.4 L, [place] % (Auto) 3.0, Eos % (Auto) 0.0, Baso % (Auto) 0.2, Absolute Neuts (auto) 9.7 H, Absolute Lymphs (auto) 0.25 L, Nucleated RBC % 0, Differential Comment COMMENT 06/16/20 08:21: Sodium 133 L, Potassium 4.3, Chloride 101, Carbon Dioxide 26.0, Anion Gap 6, BUN 25 H, Creatinine 1.14, Estim Creat Clear Calc 66.05, Est GFR (MDRD) Af Amer 82, Est GFR (MDRD) Non-Af 68, BUN/Creatinine Ratio 21.9 H, Glucose 116 H, Calcium 8.2 L, Total Bilirubin 0.60, AST 42 H, ALT 36, Alkaline Phosphatase 116, Total Protein 6.9, Albumin 2.7 L, Globulin 4.2, Albumin/Globulin Ratio 0.6 L 06/16/20 08:21: Lactic Acid 1.2 06/16/20 08:21: D-Dimer Quant (PE/DVT) 1.67 H* 06/16/20 08:21: B-Natriuretic Peptide 42.3 06/16/20 08:21: Procalcitonin 1.01 H 06/16/20 09:15: COVID-19 (LOUISE) Detected Current Medications Acetaminophen (Acetaminophen 325 Mg Tablet) 650 mg PO Q6H PRN PRN PRN Reason: Pain Score 1-10/Temp > 100.7 F Al Hydroxide/Mg Hydroxide (Mag Hydrox/Al Hydrox/Simeth 30 Ml Udc) 30 ml PO Q6H PRN PRN PRN Reason: Gastric Burning Albuterol Sulfate (Albuterol 2.5 Mg/3 Ml Vial.Neb.) 2.5 mg INHALATION Q2H PRN PRN PRN Reason: Shortness of Breath/Wheezing Dexamethasone (Dexamethasone 4 Mg Tablet) 6 mg PO DAILY ROXANNE Stop: 06/25/20 10:01 Enoxaparin Sodium (Enoxaparin 80 Mg/0.8 Ml Syringe) 80 mg SC Q12 [facility] Last Admin: 06/16/20 15:11 Dose: 80 mg Documented by: Remdesivir 100 mg/ Sodium (Chloride) 250 mls @ 125 mls/hr IV DAILY ROXANNE; Protocol Stop: 06/20/20 11:59 Remdesivir 200 mg/ Sodium (Chloride) 250 mls @ 125 mls/hr IV X1 ONE; Protocol Stop: 06/16/20 17:59 Levothyroxine Sodium (Levothyroxine 112 Mcg Tablet) 112 mcg PO DAILY@0600 [facility] Last Admin: 06/16/20 15:07 Dose: 112 mcg Documented by: Ondansetron HCl (Ondansetron 4 Mg/2 Ml Vial) 4 mg IV Q8H PRN PRN PRN Reason: NAUSEA/VOMITING Psyllium Hydrophilic Mucilloid (Psyllium 1 Packet) 1 packet PO DAILY PRN PRN PRN Reason: Constipation Sodium Chloride (0.9% Saline Lock 10 Ml Syringe) 10 - 40 ml IV UD PRN PRN Reason: SALINE FLUSH Clinical Impression(s) from Imaging Studies Chest X-Ray 06/16/20 09:20 IMPRESSION: Since prior study, there has been progressive bilateral perihilar infiltrates worse on the right side. Electronically Signed: Mat Elizalde, at 9:51 EST , Service support , Assessment/Plan All Active Problems Pneumonia due to COVID-19 virus (Acute) Hypoxia (Acute) Hypothyroidism (Acute) History of coronary artery bypass graft (Acute) RECOMMENDATIONS: 1. Continue Decadron and anticoagulation 2. Add Remdesivir and convalescent serum 3. Incentive spirometer to the bedside 4. Wean oxygen as tolerated 5. Walking oximetry prior to discharge IMPRESSIONS: 1. Acute hypoxic respiratory insufficiency secondary to COVID-19 Patient appears to be on day 8 of symptoms. Patient will be continued on Decadron and anticoagulation. Patient has agreed to Remdesivir and convalescent serum. Continue to monitor oxygenation closely. Patient may have an underlying element of COPD given smoking history, but this cannot be confirmed at this time. If patient were to develop wheezing, bronchodilators would be appropriate. Patient will have to be monitored for side effects related to high steroid therapy such as hyperglycemia 2. Coronary artery disease status post CABG/advanced age/history of smoking Complicates care, management, recovery and prognosis. No baseline medications were reported. Monitor for hypertension given steroid therapy. Inpatient E&M: 20413 Init Hosp L2
[2020-06-16] MEDS: 0.9% Saline Lock 10 ML Syringe IV (17:01)
[2020-06-17] VITALS (31 sets, daily range): BP systolic 115–144; BP diastolic 67–92; PULSE 78–120; RESP 12–30; TEMP 36.8–38.7; O2SAT 85–96
[2020-06-17] MEDS: Enoxaparin 80 MG/0.8 ML Syringe SC ×3 (01:17→21:01)
[2020-06-17] MEDS: Acetaminophen 325 MG Tablet 650 MG PO ×2 (01:50→12:53)
--- NOTE | 2020-06-17 07:00 | PN_ITS ---
Patient Problems: Active and Suspected Problems Pneumonia due to COVID-19 virus (Acute) Hypoxia (Acute) History of coronary artery bypass graft (Acute) Reason for Visit: Follow-up on respiratory failure/Acute COVID-19 infection Subjective: Patient was seen and examined. He received convalescent plasma, started on remdesivir and decadron. He is currently on 13L oxygen. He was on Bipap overnight. Still spiking fevers. Denies any diarrhea or abdominal pain or nausea Objective: Physical exam: General: Alert, Oriented x3, Cooperative, has conversational dyspnea HEENT: Atraumatic, PERRLA, EOMI, Normocephalic, mild conjunctival erythema Oral: Moist Mucosa, No Gingival or Mucosal Lesions/ Ulcerations Neck: Supple, No JVD Lungs: Diminished Cardiovascular: Normal S1, Normal S2, No murmurs, No rub noted, No Gallop, Tachycardic Abdomen: Bowel Sounds Present, Soft, Non Tender, Non-Distended Extremities: No clubbing, No cyanosis, No edema, Capillary Refill Less than 3 Seconds Skin: No rashes, No breakdown Musculoskeletal: No Tenderness to Palpation of Joints or Extremities Lymphatic: No Cervical, Supraclavicular, or Inguinal Adenopathy Neurological: Cranial nerves II-XII grossly intact, Neuro grossly intact, Motor Exam 5/5 strength throughout Psych/Mental Status: Alert and oriented to time, place, person, mood and affect Vitals/I&O's: Vital Signs Temp Pulse Resp BP Pulse Ox 99.0 F 93 20 H 131/75 H 93 06/17/20 04:37 06/17/20 04:37 06/17/20 04:37 06/17/20 04:37 06/17/20 04:55 Oxygen Flow Rate (L/min) 12 Oxygen Delivery Method Nasal Cannula Weight: 82.645 kg Body Mass Index (BMI) 25.4 Intake and Output for Last 24 Hours 06/15/20 06/16/20 06/17/20 23:59 23:59 23:59 Intake Total 755 / 1555 1150 / 1150 Output Total 200 / 200 Balance 755 / 1555 950 / 950 Laboratory Results 06/16/20 08:21: WBC 10.4, RBC 4.54 L, Hgb 14.2, Hct 41.7, MCV 91.9, MCH 31.3, MCHC 34.1, RDW Std Deviation 42.3, RDW Coeff of Jennie 12.4, Plt Count 255, MPV 10.1, Immature Gran % (Auto) 0.700, Neut % (Auto) 93.7 H, Lymph % (Auto) 2.4 L, [place] % (Auto) 3.0, Eos % (Auto) 0.0, Baso % (Auto) 0.2, Absolute Neuts (auto) 9.7 H, Absolute Lymphs (auto) 0.25 L, Nucleated RBC % 0, Differential Comment COMMENT 06/16/20 08:21: Sodium 133 L, Potassium 4.3, Chloride 101, Carbon Dioxide 26.0, Anion Gap 6, BUN 25 H, Creatinine 1.14, Estim Creat Clear Calc 66.05, Est GFR (MDRD) Af Amer 82, Est GFR (MDRD) Non-Af 68, BUN/Creatinine Ratio 21.9 H, Glucose 116 H, Calcium 8.2 L, Total Bilirubin 0.60, AST 42 H, ALT 36, Alkaline Phosphatase 116, Total Protein 6.9, Albumin 2.7 L, Globulin 4.2, Albumin/Globulin Ratio 0.6 L 06/16/20 08:21: Lactic Acid 1.2 06/16/20 08:21: D-Dimer Quant (PE/DVT) 1.67 H* 06/16/20 08:21: B-Natriuretic Peptide 42.3 06/16/20 08:21: Procalcitonin 1.01 H 06/16/20 09:15: COVID-19 (LOUISE) Detected 06/16/20 16:45: Blood Type A POSITIVE Current Medications Acetaminophen (Acetaminophen 325 Mg Tablet) 650 mg PO Q6H PRN PRN PRN Reason: Pain Score 1-10/Temp > 100.7 F Last Admin: 06/17/20 01:50 Dose: 650 mg Documented by: Al Hydroxide/Mg Hydroxide (Mag Hydrox/Al Hydrox/Simeth 30 Ml Udc) 30 ml PO Q6H PRN PRN PRN Reason: Gastric Burning Albuterol Sulfate (Albuterol 2.5 Mg/3 Ml Vial.Neb.) 2.5 mg INHALATION Q2H PRN PRN PRN Reason: Shortness of Breath/Wheezing Dexamethasone (Dexamethasone 4 Mg Tablet) 6 mg PO DAILY [facility] Stop: 06/25/20 10:01 Enoxaparin Sodium (Enoxaparin 80 Mg/0.8 Ml Syringe) 80 mg SC Q12 [facility] Last Admin: 06/17/20 01:17 Dose: 80 mg Documented by: Remdesivir 100 mg/ Sodium (Chloride) 250 mls @ 125 mls/hr IV DAILY [facility]; Protocol Stop: 06/20/20 11:59 Levothyroxine Sodium (Levothyroxine 112 Mcg Tablet) 112 mcg PO DAILY [facility] Ondansetron HCl (Ondansetron 4 Mg/2 Ml Vial) 4 mg IV Q8H PRN PRN PRN Reason: NAUSEA/VOMITING Psyllium Hydrophilic Mucilloid (Psyllium 1 Packet) 1 packet PO DAILY PRN PRN PRN Reason: Constipation Sodium Chloride (0.9% Saline Lock 10 Ml Syringe) 10 - 40 ml IV UD PRN PRN Reason: SALINE FLUSH Last Admin: 06/16/20 17:01 Dose: 10 ml Documented by: STROKE Vital Signs/Narrative: Vital Signs Temp Pulse Resp BP Pulse Ox 06/17/20 04:55 93 06/17/20 04:37 99.0 F 93 20 H 131/75 H 96 06/17/20 03:48 100.1 F H 92 22 H 130/82 H 95 Medical Necessity - Tobacco Use Smoking Status: Former smoker Tobacco Use: Cigarettes Assessment/Plan All Active Problems Pneumonia due to COVID-19 virus (Acute) Hypoxia (Acute) History of coronary artery bypass graft (Acute) 1. Acute hypoxic respiratory insufficiency secondary to acute COVID-19 pneumonia, worsening Patient is currently on 13L oxygen. He was admitted with 3L oxygen. Continue with breathing treatments, IV steroids, encourage use of incentive spirometer. Wean off oxygen for SPO2 more than 94% 2. Elevated D-dimer, need to rule out PE, continue on Lovenox Will get CTA chest when medically stable 3. Sepsis secondary to Acute COVID-19 pneumonia with hypoxia,present on admission Continue on decadron, remdesivir, plasma ordered 4. CAD status post CABG, denies any active cardiac symptoms 5. Hypothyroidism, continue on synthroid 6. DVT prophylaxis on Lovenox [place] Inpatient E&M: [id number] [facility] Hosp L3
[2020-06-17] MEDS: Levothyroxine 112 MCG Tablet PO (08:26)
[2020-06-17] MEDS: 0.9% Saline Lock 10 ML Syringe IV (08:27)
[2020-06-17 10:38] LABS: Hematocrit 42.9 % (40-54); Hemoglobin 14.3 g/dL (13.0-16.5); Mean Corp Hgb Conc 33.3 g/dL (32-36); Mean Corpuscular Hgb 30.8 pg (27.0-32.0); Mean Corpuscular Volume 92.3 fL (80-94); Mean Platelet Vol. 10.6 fl (6.2-12.0); Platelet Count 320 K/mm3 (150-450); RBC Distribution Width CV 12.8 % (11.6-14.6); RBC Distribution Width SD 42.9 fl (35.1-43.9); Red Blood Count 4.65 M/mm3 (4.6-6.2); White Blood Count 13.9 K/mm3 (4.4-11.0)
--- NOTE | 2020-06-17 10:43 | PCM.PN.PUL ---
Patient Problems: Active and Suspected Problems Pneumonia due to COVID-19 virus (Acute) Hypoxia (Acute) History of coronary artery bypass graft (Acute) Subjective: Patient with significant worsening in oxygenation over the last 24 hours. Patient did receive convalescent serum overnight and did have a fever. Patient reports some dyspnea, but overall feels subjectively only slightly worse compared to previous. - Physical Exam Vitals/I&O's: Vital Signs Temp Pulse Resp BP Pulse Ox 36.8 C 92 16 139/77 H 92 06/17/20 08:20 06/17/20 08:20 06/17/20 08:20 06/17/20 08:20 06/17/20 08:20 Oxygen Flow Rate (L/min) 13 Oxygen Delivery Method Nasal Cannula Weight: 82.2 kg Body Mass Index (BMI) 25.4 Intake and Output for Last 24 Hours 06/15/20 06/16/20 06/17/20 23:59 23:59 23:59 Intake Total 755 / 1555 1150 / 1150 Output Total 200 / 200 Balance 755 / 1555 950 / 950 General: Alert, Oriented x3, Cooperative, - - Mild conversational dyspnea. HEENT: Atraumatic, PERRLA, EOMI, Normocephalic, - - Slight scleral injection without icterus Oral: Moist Mucosa, No Gingival or Mucosal Lesions/ Ulcerations Neck: Supple, No JVD, No Nodes, Trachea Midline Lungs: No rhonchi, No wheeze, No rales, Diminished Cardiovascular: Normal S1, Normal S2, No murmurs, No rub noted, No Gallop, Tachycardic Abdomen: Bowel Sounds Present, Soft, Non Tender, Non-Distended Extremities: No clubbing, No cyanosis, No edema, Capillary Refill Less than 3 Seconds Skin: No rashes, No breakdown Musculoskeletal: No Tenderness to Palpation of Joints or Extremities Lymphatic: No Cervical, Supraclavicular, or Inguinal Adenopathy Neurological: Cranial nerves II-XII grossly intact, Neuro grossly intact, Motor Exam 5/5 strength throughout Psych/Mental Status: Alert and oriented to time, place, person, mood and affect Laboratory Results 06/16/20 08:21: D-Dimer Quant (PE/DVT) 1.67 H* 06/16/20 08:21: B-Natriuretic Peptide 42.3 06/16/20 08:21: Procalcitonin 1.01 H 06/16/20 09:15: COVID-19 (LOUISE) Detected 06/16/20 16:45: Blood Type A POSITIVE 06/17/20 08:35: WBC 13.9 H, RBC 4.65, Hgb 14.3, Hct 42.9, MCV 92.3, MCH 30.8, MCHC 33.3, RDW Std Deviation 42.9, RDW Coeff of Jennie 12.8, Plt Count 320, MPV 10.6 06/17/20 08:35: Sodium Pending, Potassium Pending, Chloride Pending, Carbon Dioxide Pending, Anion Gap Pending, BUN Pending, Creatinine Pending, Est GFR (MDRD) Af Amer Pending, Est GFR (MDRD) Non-Af Pending, BUN/Creatinine Ratio Pending, Glucose Pending, Calcium Pending, Total Bilirubin Pending, AST Pending, ALT Pending, Alkaline Phosphatase Pending, Total Protein Pending, Albumin Pending 06/17/20 08:35: B-Natriuretic Peptide Pending Current Medications Acetaminophen (Acetaminophen 325 Mg Tablet) 650 mg PO Q6H PRN PRN PRN Reason: Pain Score 1-10/Temp > 100.7 F Last Admin: 06/17/20 01:50 Dose: 650 mg Documented by: Al Hydroxide/Mg Hydroxide (Mag Hydrox/Al Hydrox/Simeth 30 Ml Udc) 30 ml PO Q6H PRN PRN PRN Reason: Gastric Burning Albuterol Sulfate (Albuterol 2.5 Mg/3 Ml Vial.Neb.) 2.5 mg INHALATION Q2H PRN PRN PRN Reason: Shortness of Breath/Wheezing Dexamethasone (Dexamethasone 4 Mg Tablet) 6 mg PO DAILY [facility] Stop: 06/25/20 10:01 Enoxaparin Sodium (Enoxaparin 80 Mg/0.8 Ml Syringe) 80 mg SC Q12 [facility] Last Admin: 06/17/20 01:17 Dose: 80 mg Documented by: Remdesivir 100 mg/ Sodium (Chloride) 250 mls @ 125 mls/hr IV DAILY [facility]; Protocol Stop: 06/20/20 11:59 Levothyroxine Sodium (Levothyroxine 112 Mcg Tablet) 112 mcg PO DAILY [facility] Last Admin: 06/17/20 08:26 Dose: 112 mcg Documented by: Ondansetron HCl (Ondansetron 4 Mg/2 Ml Vial) 4 mg IV Q8H PRN PRN PRN Reason: NAUSEA/VOMITING Psyllium Hydrophilic Mucilloid (Psyllium 1 Packet) 1 packet PO DAILY PRN PRN PRN Reason: Constipation Sodium Chloride (0.9% Saline Lock 10 Ml Syringe) 10 - 40 ml IV UD PRN PRN Reason: SALINE FLUSH Last Admin: 06/17/20 08:27 Dose: 10 ml Documented by: Medical Necessity - Tobacco Use Smoking Status: Former smoker Tobacco Use: Cigarettes Assessment/Plan All Active Problems Pneumonia due to COVID-19 virus (Acute) Hypoxia (Acute) History of coronary artery bypass graft (Acute) RECOMMENDATIONS: 1. Continue Decadron (09/13) and anticoagulation 2. Continue remdesivir (09/08) and completed convalescent serum 3. Incentive spirometer to the bedside 4. Wean oxygen as tolerated 5. Walking oximetry prior to discharge 6. BiPAP rescue if necessary. IMPRESSIONS: 1. Acute hypoxic respiratory insufficiency secondary to COVID-19 Patient appears to be on day 8 of symptoms. Patient will be continued on Decadron and anticoagulation. Patient has agreed to Remdesivir and convalescent serum. Continue to monitor oxygenation closely. Patient may have an underlying element of COPD given smoking history, but this cannot be confirmed at this time. Patient with significant decompensation overnight, but this may be secondary to the convalescent serum with cytokine release. Continue to monitor. Cannot exclude the need for BiPAP rescue needed overnight. Patient is a full code. 2. Coronary artery disease status post CABG/advanced age/history of smoking Complicates care, management, recovery and prognosis. No baseline medications were reported. Monitor for hypertension given steroid therapy. Inpatient E&M: [id number] [facility] Hosp L3
[2020-06-17 11:02] LABS: BNP,B-Type NATRIURETIC PEPTIDE 87.8 pg/mL (0-100)
[2020-06-17 11:09] LABS: ALB/GLOB Ratio 0.6 RATIO (0.9-2.4); AST(SGOT) 38 U/L (15-37); Alanine Aminotransfer ALT/SGPT 39 U/L (16-61); Albumin, Serum 2.5 g/dL (3.2-5.0); Alkaline Phosphatase 132 U/L (45-117); Anion Gap 9 (5-15); BUN 27 mg/dL (7-18); BUN/Creat Ratio 26.7 RATIO (10-20); Calcium,Total 8.5 mg/dL (8.5-10.1); Chloride 102 mmol/L (98-107); Creatinine, Serum 1.01 mg/dL (0.70-1.30); EST Glomerular Filtration Rate 78 mL/min (>60); Est Glom Filt Rate - Afr Amer 94 mL/min (>60); Estimated Creatinine Clearance 74.55 ml/min; Globulin 4.3 g/dL (2.2-4.2); Glucose 139 mg/dL (74-106); Potassium 4.1 mmol/L (3.5-5.1); Protein, Total 6.8 g/dL (6.4-8.2); Sodium Level 136 mmol/L (136-145)
[2020-06-17] MEDS: dexAMETHasone 4 MG Tablet 6 MG PO (11:09)
[2020-06-17] MEDS: Ipratropium/Albuterol Sulfate 3 ML AMPUL.NEB INHALATION ×3 (11:36→18:54)
--- NOTE | 2020-06-17 14:04 | CM.UR ---
Attempted to call this patient to perform RN CM assessment via phone however no answer. Katie Goddard RN, CCM.
[2020-06-18] VITALS (21 sets, daily range): BP systolic 127–135; BP diastolic 59–78; PULSE 72–95; RESP 12–26; TEMP 36.5–36.9; O2SAT 87–100
[2020-06-18 06:30] LABS: Hematocrit 40.2 % (40-54); Hemoglobin 13.6 g/dL (13.0-16.5); Mean Corp Hgb Conc 33.8 g/dL (32-36); Mean Corpuscular Hgb 31.2 pg (27.0-32.0); Mean Corpuscular Volume 92.2 fL (80-94); Platelet Count 338 K/mm3 (150-450); RBC Distribution Width CV 12.7 % (11.6-14.6); RBC Distribution Width SD 43.1 fl (35.1-43.9); Red Blood Count 4.36 M/mm3 (4.6-6.2); White Blood Count 12.7 K/mm3 (4.4-11.0)
[2020-06-18 06:51] LABS: ALB/GLOB Ratio 0.6 RATIO (0.9-2.4); AST(SGOT) 43 U/L (15-37); Alanine Aminotransfer ALT/SGPT 38 U/L (16-61); Albumin, Serum 2.4 g/dL (3.2-5.0); Alkaline Phosphatase 108 U/L (45-117); Anion Gap 4 (5-15); BUN 27 mg/dL (7-18); BUN/Creat Ratio 27.4 RATIO (10-20); Calcium,Total 8.5 mg/dL (8.5-10.1); Chloride 102 mmol/L (98-107); Creatinine, Serum 0.98 mg/dL (0.70-1.30); EST Glomerular Filtration Rate 80 mL/min (>60); Est Glom Filt Rate - Afr Amer 97 mL/min (>60); Estimated Creatinine Clearance 76.84 ml/min; Glucose 160 mg/dL (74-106); Protein, Total 6.4 g/dL (6.4-8.2); Sodium Level 135 mmol/L (136-145)
[2020-06-18] MEDS: Ipratropium/Albuterol Sulfate 3 ML AMPUL.NEB INHALATION ×4 (06:55→19:06)
--- NOTE | 2020-06-18 07:20 | PCM.PN.HOSP ---
Patient Problems: Active and Suspected Problems Pneumonia due to COVID-19 virus (Acute) Hypoxia (Acute) History of coronary artery bypass graft (Acute) Reason for Visit: Follow-up on respiratory failure/Acute COVID-19 infection Subjective: Patient was seen and examined. He received convalescent plasma, started on remdesivir and decadron. He is currently on 15 L oxygen. He was on Bipap overnight. Objective: Physical exam: General: Alert, Oriented x3, Cooperative, conversational dyspnea HEENT: Atraumatic, PERRLA, EOMI, Normocephalic, mild conjunctival erythema Oral: Moist Mucosa, No Gingival or Mucosal Lesions/ Ulcerations Neck: Supple, No JVD Lungs: Diminished Cardiovascular: Normal S1, Normal S2, No murmurs, No rub noted, No Gallop, Tachycardic Abdomen: Bowel Sounds Present, Soft, Non Tender, Non-Distended Extremities: No clubbing, No cyanosis, No edema, Capillary Refill Less than 3 Seconds Skin: No rashes, No breakdown Musculoskeletal: No Tenderness to Palpation of Joints or Extremities Lymphatic: No Cervical, Supraclavicular, or Inguinal Adenopathy Neurological: Cranial nerves II-XII grossly intact, Neuro grossly intact, Motor Exam 5/5 strength throughout Psych/Mental Status: Alert and oriented to time, place, person, mood and affect Vitals/I&O's: Vital Signs Temp Pulse Resp BP Pulse Ox 98.3 F 81 20 H 135/78 H 92 06/18/20 04:15 06/18/20 06:56 06/18/20 06:56 06/18/20 04:15 06/18/20 06:56 Oxygen Flow Rate (L/min) 13 Oxygen Delivery Method Nasal Cannula Weight: 83.6 kg Body Mass Index (BMI) 25.4 Intake and Output for Last 24 Hours 06/16/20 06/17/20 06/18/20 23:59 23:59 23:59 Intake Total 755 / 1555 2120 / 2320 400 / 400 Output Total 450 / 700 600 / 600 Balance 755 / 1555 1670 / 1620 -200 / -200 Laboratory Results 06/17/20 08:35: WBC 13.9 H, RBC 4.65, Hgb 14.3, Hct 42.9, MCV 92.3, MCH 30.8, MCHC 33.3, RDW Std Deviation 42.9, RDW Coeff of Jennie 12.8, Plt Count 320, MPV 10.6 06/17/20 08:35: Sodium 136, Potassium 4.1, Chloride 102, Carbon Dioxide 25.0, Anion Gap 9, BUN 27 H, Creatinine 1.01, Estim Creat Clear Calc 74.55, Est GFR (MDRD) Af Amer 94, Est GFR (MDRD) Non-Af 78, BUN/Creatinine Ratio 26.7 H, Glucose 139 H, Calcium 8.5, Total Bilirubin 0.50, AST 38 H, ALT 39, Alkaline Phosphatase 132 H, Total Protein 6.8, Albumin 2.5 L, Globulin 4.3 H, Albumin/Globulin Ratio 0.6 L 06/17/20 08:35: B-Natriuretic Peptide 87.8 06/18/20 05:36: WBC 12.7 H, RBC 4.36 L, Hgb 13.6, Hct 40.2, MCV 92.2, MCH 31.2, MCHC 33.8, RDW Std Deviation 43.1, RDW Coeff of Jennie 12.7, Plt Count 338, MPV 10.0 06/18/20 05:36: Sodium 135 L, Potassium 5.0, Chloride 102, Carbon Dioxide 29.0, Anion Gap 4 L, BUN 27 H, Creatinine 0.98, Estim Creat Clear Calc 76.84, Est GFR (MDRD) Af Amer 97, Est GFR (MDRD) Non-Af 80, BUN/Creatinine Ratio 27.4 H, Glucose 160 H, Calcium 8.5, Total Bilirubin 0.40, AST 43 H, ALT 38, Alkaline Phosphatase 108, Total Protein 6.4, Albumin 2.4 L, Globulin 4.0, Albumin/Globulin Ratio 0.6 L Current Medications Acetaminophen (Acetaminophen 325 Mg Tablet) 650 mg PO Q6H PRN PRN PRN Reason: Pain Score 1-10/Temp > 100.7 F Last Admin: 06/17/20 12:53 Dose: 650 mg Documented by: Al Hydroxide/Mg Hydroxide (Mag Hydrox/Al Hydrox/Simeth 30 Ml Udc) 30 ml PO Q6H PRN PRN PRN Reason: Gastric Burning Albuterol Sulfate (Albuterol 2.5 Mg/3 Ml Vial.Neb.) 2.5 mg INHALATION Q2H PRN PRN PRN Reason: Shortness of Breath/Wheezing Albuterol/Ipratropium (Ipratropium/Albuterol Sulfate 3 Ml Ampul.Neb) 3 ml INHALATION Q4HWA.RT [facility] Last Admin: 06/18/20 06:55 Dose: 3 ml Documented by: Dexamethasone (Dexamethasone 4 Mg Tablet) 6 mg PO DAILY [facility] Stop: 06/25/20 10:01 Last Admin: 06/17/20 11:09 Dose: 6 mg Documented by: Enoxaparin Sodium (Enoxaparin 80 Mg/0.8 Ml Syringe) 80 mg SC Q12 [facility] Last Admin: 06/17/20 21:01 Dose: 80 mg Documented by: Remdesivir 100 mg/ Sodium (Chloride) 250 mls @ 125 mls/hr IV DAILY [facility]; Protocol Stop: 06/20/20 11:59 Last Infusion: 06/17/20 13:12 Dose: Infused Documented by: Levothyroxine Sodium (Levothyroxine 112 Mcg Tablet) 112 mcg PO DAILY [facility] Last Admin: 06/17/20 08:26 Dose: 112 mcg Documented by: Ondansetron HCl (Ondansetron 4 Mg/2 Ml Vial) 4 mg IV Q8H PRN PRN PRN Reason: NAUSEA/VOMITING Psyllium Hydrophilic Mucilloid (Psyllium 1 Packet) 1 packet PO DAILY PRN PRN PRN Reason: Constipation Sodium Chloride (0.9% Saline Lock 10 Ml Syringe) 10 - 40 ml IV UD PRN PRN Reason: SALINE FLUSH Last Admin: 06/17/20 08:27 Dose: 10 ml Documented by: STROKE Vital Signs/Narrative: Vital Signs Temp Pulse Resp BP Pulse Ox 06/18/20 06:56 81 20 H 92 06/18/20 05:10 83 24 H 96 06/18/20 04:15 98.3 F 80 16 135/78 H 93 06/18/20 04:04 87 06/18/20 04:00 93 Medical Necessity - Tobacco Use Smoking Status: Former smoker Tobacco Use: Cigarettes Assessment/Plan All Active Problems Pneumonia due to COVID-19 virus (Acute) Hypoxia (Acute) History of coronary artery bypass graft (Acute) 1. Acute hypoxic respiratory insufficiency secondary to acute COVID-19 pneumonia, worsening, in mild respiratory distress Patient is currently on 15 L oxygen. He was admitted with 3L oxygen. Continue with breathing treatments, po steroids, encourage use of incentive spirometer. Wean off oxygen for SPO2 more than 94% 2. Elevated D-dimer, need to rule out PE, Will get CTA chest when medically stable Continue on Lovenox 3. Sepsis secondary to Acute COVID-19 pneumonia with hypoxia,present on admission Continue on decadron, remdesivir, plasma ordered 4. CAD status post CABG, denies any active cardiac symptoms 5. Hypothyroidism, continue on synthroid 6. DVT prophylaxis on Lovenox [place] Inpatient E&M: [id number] [facility] L3
--- NOTE | 2020-06-18 08:49 | PCM.PN.PUL ---
Patient Problems: Active and Suspected Problems Pneumonia due to COVID-19 virus (Acute) Hypoxia (Acute) History of coronary artery bypass graft (Acute) Subjective: Patient did okay overnight. Patient did require BiPAP rescue with sleep, but overall feels subjectively unchanged compared to previous. Patient was able to tolerate BiPAP well. - Physical Exam Vitals/I&O's: Vital Signs Temp Pulse Resp BP Pulse Ox 36.8 C 81 20 H 135/78 H 92 06/18/20 04:15 06/18/20 06:56 06/18/20 06:56 06/18/20 04:15 06/18/20 06:56 Oxygen Flow Rate (L/min) 13 Oxygen Delivery Method Nasal Cannula Weight: 83.6 kg Body Mass Index (BMI) 25.4 Intake and Output for Last 24 Hours 06/16/20 06/17/20 06/18/20 23:59 23:59 23:59 Intake Total 755 / 1555 2120 / 2320 400 / 400 Output Total 450 / 700 600 / 600 Balance 755 / 1555 1670 / 1620 -200 / -200 General: Alert, Oriented x3, Cooperative, No apparent distress - On BiPAP HEENT: Atraumatic, PERRLA, EOMI, Normocephalic, - - Lateral injection without icterus Oral: Moist Mucosa, No Gingival or Mucosal Lesions/ Ulcerations Neck: Supple, No JVD, No Nodes, Trachea Midline Lungs: No rhonchi, No wheeze, No rales, Diminished Cardiovascular: Regular rate, Regular Rhythm, Normal S1, Normal S2, No murmurs, No rub noted, No Gallop Abdomen: Bowel Sounds Present, Soft, Non Tender, Non-Distended Extremities: No clubbing, No cyanosis, No edema, Capillary Refill Less than 3 Seconds Skin: No rashes, No breakdown Musculoskeletal: No Tenderness to Palpation of Joints or Extremities Lymphatic: No Cervical, Supraclavicular, or Inguinal Adenopathy Neurological: Cranial nerves II-XII grossly intact, Neuro grossly intact, Motor Exam 5/5 strength throughout Psych/Mental Status: Alert and oriented to time, place, person, mood and affect Laboratory Results 06/17/20 08:35: WBC 13.9 H, RBC 4.65, Hgb 14.3, Hct 42.9, MCV 92.3, MCH 30.8, MCHC 33.3, RDW Std Deviation 42.9, RDW Coeff of Jennie 12.8, Plt Count 320, MPV 10.6 06/17/20 08:35: Sodium 136, Potassium 4.1, Chloride 102, Carbon Dioxide 25.0, Anion Gap 9, BUN 27 H, Creatinine 1.01, Estim Creat Clear Calc 74.55, Est GFR (MDRD) Af Amer 94, Est GFR (MDRD) Non-Af 78, BUN/Creatinine Ratio 26.7 H, Glucose 139 H, Calcium 8.5, Total Bilirubin 0.50, AST 38 H, ALT 39, Alkaline Phosphatase 132 H, Total Protein 6.8, Albumin 2.5 L, Globulin 4.3 H, Albumin/Globulin Ratio 0.6 L 06/17/20 08:35: B-Natriuretic Peptide 87.8 06/18/20 05:36: WBC 12.7 H, RBC 4.36 L, Hgb 13.6, Hct 40.2, MCV 92.2, MCH 31.2, MCHC 33.8, RDW Std Deviation 43.1, RDW Coeff of Jennie 12.7, Plt Count 338, MPV 10.0 06/18/20 05:36: Sodium 135 L, Potassium 5.0, Chloride 102, Carbon Dioxide 29.0, Anion Gap 4 L, BUN 27 H, Creatinine 0.98, Estim Creat Clear Calc 76.84, Est GFR (MDRD) Af Amer 97, Est GFR (MDRD) Non-Af 80, BUN/Creatinine Ratio 27.4 H, Glucose 160 H, Calcium 8.5, Total Bilirubin 0.40, AST 43 H, ALT 38, Alkaline Phosphatase 108, Total Protein 6.4, Albumin 2.4 L, Globulin 4.0, Albumin/Globulin Ratio 0.6 L Current Medications Acetaminophen (Acetaminophen 325 Mg Tablet) 650 mg PO Q6H PRN PRN PRN Reason: Pain Score 1-10/Temp > 100.7 F Last Admin: 06/17/20 12:53 Dose: 650 mg Documented by: Al Hydroxide/Mg Hydroxide (Mag Hydrox/Al Hydrox/Simeth 30 Ml Udc) 30 ml PO Q6H PRN PRN PRN Reason: Gastric Burning Albuterol Sulfate (Albuterol 2.5 Mg/3 Ml Vial.Neb.) 2.5 mg INHALATION Q2H PRN PRN PRN Reason: Shortness of Breath/Wheezing Albuterol/Ipratropium (Ipratropium/Albuterol Sulfate 3 Ml Ampul.Neb) 3 ml INHALATION Q4HWA.RT [facility] Last Admin: 06/18/20 06:55 Dose: 3 ml Documented by: Dexamethasone (Dexamethasone 4 Mg Tablet) 6 mg PO DAILY [facility] Stop: 06/25/20 10:01 Last Admin: 06/17/20 11:09 Dose: 6 mg Documented by: Enoxaparin Sodium (Enoxaparin 80 Mg/0.8 Ml Syringe) 80 mg SC Q12 [facility] Last Admin: 06/17/20 21:01 Dose: 80 mg Documented by: Remdesivir 100 mg/ Sodium (Chloride) 250 mls @ 125 mls/hr IV DAILY [facility]; Protocol Stop: 06/20/20 11:59 Last Infusion: 06/17/20 13:12 Dose: Infused Documented by: Levothyroxine Sodium (Levothyroxine 112 Mcg Tablet) 112 mcg PO DAILY [facility] Last Admin: 06/17/20 08:26 Dose: 112 mcg Documented by: Ondansetron HCl (Ondansetron 4 Mg/2 Ml Vial) 4 mg IV Q8H PRN PRN PRN Reason: NAUSEA/VOMITING Psyllium Hydrophilic Mucilloid (Psyllium 1 Packet) 1 packet PO DAILY PRN PRN PRN Reason: Constipation Sodium Chloride (0.9% Saline Lock 10 Ml Syringe) 10 - 40 ml IV UD PRN PRN Reason: SALINE FLUSH Last Admin: 06/17/20 08:27 Dose: 10 ml Documented by: Medical Necessity - Tobacco Use Smoking Status: Former smoker Tobacco Use: Cigarettes Assessment/Plan All Active Problems Pneumonia due to COVID-19 virus (Acute) Hypoxia (Acute) History of coronary artery bypass graft (Acute) RECOMMENDATIONS: 1. Continue Decadron (10/11) and anticoagulation 2. Continue remdesivir (10/06) and completed convalescent serum 3. Incentive spirometer to the bedside 4. Wean oxygen as tolerated 5. Walking oximetry prior to discharge 6. BiPAP rescue when necessary. IMPRESSIONS: 1. Acute hypoxic respiratory insufficiency secondary to COVID-19 Patient appears to be on day 8 of symptoms. Patient will be continued on Decadron and anticoagulation. Patient has agreed to Remdesivir and convalescent serum. Continue to monitor oxygenation closely. Patient may have an underlying element of COPD given smoking history, but this cannot be confirmed at this time. Patient appears to be recovering from convalescent serum well. Continue to use BiPAP with sleep and rescue if necessary. We will hold off on diuretic therapy another 24 hours. Patient is a full code. 2. Coronary artery disease status post CABG/advanced age/history of smoking Complicates care, management, recovery and prognosis. No baseline medications were reported. Monitor for hypertension given steroid therapy. Inpatient E&M: [id number] [facility] H[facility] L3
[2020-06-18] MEDS: Enoxaparin 80 MG/0.8 ML Syringe SC ×2 (08:54→20:39)
[2020-06-18] MEDS: dexAMETHasone 4 MG Tablet 6 MG PO (08:54)
[2020-06-18] MEDS: Levothyroxine 112 MCG Tablet PO (08:57)
[2020-06-18] MEDS: 0.9% Saline Lock 10 ML Syringe IV ×2 (10:17→14:45)
--- NOTE | 2020-06-18 12:23 | NURSING ---
Respiratory notified pt pox is 84 to 88%, is not in distress.
[2020-06-19] VITALS (23 sets, daily range): BP systolic 96–126; BP diastolic 51–86; PULSE 63–85; RESP 16–26; TEMP 36.1–36.8; O2SAT 81–98
--- NOTE | 2020-06-19 00:30 | CPS ---
o2 decreased to 52% nurse aware
[2020-06-19 06:42] LABS: Hematocrit 43.8 % (40-54); Hemoglobin 14.5 g/dL (13.0-16.5); Mean Corp Hgb Conc 33.1 g/dL (32-36); Mean Corpuscular Hgb 30.5 pg (27.0-32.0); Mean Corpuscular Volume 92.2 fL (80-94); Mean Platelet Vol. 9.8 fl (6.2-12.0); Platelet Count 385 K/mm3 (150-450); RBC Distribution Width CV 12.8 % (11.6-14.6); RBC Distribution Width SD 43.2 fl (35.1-43.9); Red Blood Count 4.75 M/mm3 (4.6-6.2); White Blood Count 11.7 K/mm3 (4.4-11.0)
[2020-06-19] MEDS: Ipratropium/Albuterol Sulfate 3 ML AMPUL.NEB INHALATION ×4 (06:55→18:55)
[2020-06-19 07:16] LABS: ALB/GLOB Ratio 0.6 RATIO (0.9-2.4); AST(SGOT) 76 U/L (15-37); Alanine Aminotransfer ALT/SGPT 66 U/L (16-61); Albumin, Serum 2.5 g/dL (3.2-5.0); Alkaline Phosphatase 129 U/L (45-117); Anion Gap 6 (5-15); BUN 29 mg/dL (7-18); BUN/Creat Ratio 27.9 RATIO (10-20); Calcium,Total 8.6 mg/dL (8.5-10.1); Chloride 103 mmol/L (98-107); Creatinine, Serum 1.04 mg/dL (0.70-1.30); EST Glomerular Filtration Rate 75 mL/min (>60); Est Glom Filt Rate - Afr Amer 91 mL/min (>60); Globulin 4.3 g/dL (2.2-4.2); Glucose 152 mg/dL (74-106); Potassium 4.2 mmol/L (3.5-5.1); Protein, Total 6.8 g/dL (6.4-8.2); Sodium Level 135 mmol/L (136-145)
[2020-06-19] MEDS: Levothyroxine 112 MCG Tablet PO (08:09)
[2020-06-19] MEDS: dexAMETHasone 4 MG Tablet 6 MG PO (08:09)
[2020-06-19] MEDS: 0.9% Saline Lock 10 ML Syringe IV ×2 (10:38→20:47)
[2020-06-19] MEDS: Enoxaparin 80 MG/0.8 ML Syringe SC ×2 (10:40→20:46)
--- NOTE | 2020-06-19 12:29 | PCM.PN.PUL ---
Patient Problems: Active and Suspected Problems Pneumonia due to COVID-19 virus (Acute) Hypoxia (Acute) History of coronary artery bypass graft (Acute) Subjective: The patient was seen and examined at the bedside this morning. Events from the last 24 hours have been reviewed. The patient is currently afebrile, hemodynamically stable and maintaining appropriate oxygen saturations on Airvo heated high flow oxygen with an FiO2 requirement of 67%. The patient has already received convalescent plasma and remains on remdesivir, therapeutic Lovenox and Decadron. There was a slight bump in transaminase levels noted this morning. Renal function remained stable. Objective: The patient's most recent lab work, culture data and imaging studies have all been personally reviewed. Coronavirus PCR was positive on June 16. Blood cultures have shown no growth to date. - Physical Exam Vitals/I&O's: Vital Signs Temp Pulse Resp BP Pulse Ox 97.7 F L 71 20 H 110/62 92 06/19/20 10:42 06/19/20 11:27 06/19/20 11:27 06/19/20 10:42 06/19/20 11:27 Oxygen Flow Rate (L/min) 24 Oxygen Delivery Method Airvo Weight: 183 lb 13.848 oz Body Mass Index (BMI) 25.4 Intake and Output for Last 24 Hours 06/17/20 06/18/20 06/19/20 23:59 23:59 23:59 Intake Total 2120 / 2320 650 / 950 700 / 700 Output Total 450 / 700 600 / 600 925 / 925 Balance 1670 / 1620 50 / 350 -225 / -225 General: Alert, Cooperative, No apparent distress HEENT: Atraumatic, Normocephalic Oral: No Gingival or Mucosal Lesions/ Ulcerations Neck: Supple, No Nodes, Trachea Midline Lungs: No rhonchi, No wheeze, No rales, Diminished Cardiovascular: Regular rate, Regular Rhythm Abdomen: Bowel Sounds Present, Soft, Non Tender Extremities: No clubbing, No cyanosis, No edema Skin: No breakdown Musculoskeletal: No Muscle Wasting Lymphatic: No Cervical, Supraclavicular, or Inguinal Adenopathy Neurological: Cranial nerves II-XII grossly intact, Neuro grossly intact Psych/Mental Status: Normal Affect, Appropriate Labs (Last 48 Hours) 06/18/20 06/18/20 06/19/20 05:36 05:36 06:20 WBC 12.7 H 11.7 H RBC 4.36 L 4.75 Hgb 13.6 14.5 Hct 40.2 43.8 MCV 92.2 92.2 MCH 31.2 30.5 MCHC 33.8 33.1 RDW Std Deviation 43.1 43.2 RDW Coeff of Jennie 12.7 12.8 Plt Count 338 385 MPV 10.0 9.8 Sodium 135 L Potassium 5.0 Chloride 102 Carbon Dioxide 29.0 Anion Gap 4 L BUN 27 H Creatinine 0.98 Estim Creat Clear Calc 76.84 Est GFR (MDRD) Af Amer 97 Est GFR (MDRD) Non-Af 80 BUN/Creatinine Ratio 27.4 H Glucose 160 H Calcium 8.5 Total Bilirubin 0.40 AST 43 H ALT 38 Alkaline Phosphatase 108 Total Protein 6.4 Albumin 2.4 L Globulin 4.0 Albumin/Globulin Ratio 0.6 L 06/19/20 06:20 WBC RBC Hgb Hct MCV MCH MCHC RDW Std Deviation RDW Coeff of Jennie Plt Count MPV Sodium 135 L Potassium 4.2 Chloride 103 Carbon Dioxide 26.0 Anion Gap 6 BUN 29 H Creatinine 1.04 Estim Creat Clear Calc 72.40 Est GFR (MDRD) Af Amer 91 Est GFR (MDRD) Non-Af 75 BUN/Creatinine Ratio 27.9 H Glucose 152 H Calcium 8.6 Total Bilirubin 0.50 AST 76 H ALT 66 H Alkaline Phosphatase 129 H Total Protein 6.8 Albumin 2.5 L Globulin 4.3 H Albumin/Globulin Ratio 0.6 L Microbiology 06/16/20 08:34 Blood Culture (Wb) - Left Hand Blood Culture - Preliminary No growth in 48 hours. 06/16/20 08:21 Blood Culture (Wb) - Anticubital Left Blood Culture - Preliminary No growth in 48 hours. Clinical Impression(s) from Imaging Studies Chest X-Ray 06/16/20 09:20 IMPRESSION: Since prior study, there has been progressive bilateral perihilar infiltrates worse on the right side. Electronically Signed: Mat Elizalde, at 9:51 EST , Service support , Current Medications Acetaminophen (Acetaminophen 325 Mg Tablet) 650 mg PO Q6H PRN PRN PRN Reason: Pain Score 1-10/Temp > 100.7 F Last Admin: 06/17/20 12:53 Dose: 650 mg Documented by: Al Hydroxide/Mg Hydroxide (Mag Hydrox/Al Hydrox/Simeth 30 Ml Udc) 30 ml PO Q6H PRN PRN PRN Reason: Gastric Burning Albuterol Sulfate (Albuterol 2.5 Mg/3 Ml Vial.Neb.) 2.5 mg INHALATION Q2H PRN PRN PRN Reason: Shortness of Breath/Wheezing Albuterol/Ipratropium (Ipratropium/Albuterol Sulfate 3 Ml Ampul.Neb) 3 ml INHALATION Q4HWA.RT [facility] Last Admin: 06/19/20 11:27 Dose: 3 ml Documented by: Dexamethasone (Dexamethasone 4 Mg Tablet) 6 mg PO DAILY [facility] Stop: 06/25/20 10:01 Last Admin: 06/19/20 08:09 Dose: 6 mg Documented by: Enoxaparin Sodium (Enoxaparin 80 Mg/0.8 Ml Syringe) 80 mg SC Q12 [facility] Last Admin: 06/19/20 10:40 Dose: 80 mg Documented by: Remdesivir 100 mg/ Sodium (Chloride) 250 mls @ 125 mls/hr IV DAILY [facility]; Protocol Stop: 06/20/20 11:59 Last Admin: 06/19/20 10:37 Dose: 125 mls/hr Documented by: Levothyroxine Sodium (Levothyroxine 112 Mcg Tablet) 112 mcg PO DAILY [facility] Last Admin: 06/19/20 08:09 Dose: 112 mcg Documented by: Ondansetron HCl (Ondansetron 4 Mg/2 Ml Vial) 4 mg IV Q8H PRN PRN PRN Reason: NAUSEA/VOMITING Psyllium Hydrophilic Mucilloid (Psyllium 1 Packet) 1 packet PO DAILY PRN PRN PRN Reason: Constipation Sodium Chloride (0.9% Saline Lock 10 Ml Syringe) 10 - 40 ml IV UD PRN PRN Reason: SALINE FLUSH Last Admin: 06/19/20 10:38 Dose: 10 ml Documented by: Medical Necessity - Tobacco Use Smoking Status: Former smoker Tobacco Use: Cigarettes Assessment/Plan All Active Problems Pneumonia due to COVID-19 virus (Acute) Hypoxia (Acute) History of coronary artery bypass graft (Acute) RECOMMENDATIONS: 1. Continue remdesivir, Decadron and therapeutic Lovenox as ordered. 2. Wean FiO2 to maintain oxygen saturations at or above 90%. 3. Monitor liver and renal function closely. 4. Encourage incentive spirometer use and mobilize patient as tolerated. IMPRESSIONS: 1. Acute hypoxic respiratory failure secondary to COVID-19 pneumonia Continue current supportive measures including supplemental oxygen to maintain saturations at or above 90%. The patient has already received convalescent plasma and remains on remdesivir and Decadron. The patient also be continued on Lovenox therapy as ordered. Continue to monitor liver and renal function in light of remdesivir administration. 2. Coronary artery disease status post CABG/advanced age/history of smoking/hypothyroidism Complicates care, management, recovery and prognosis. Continue home medications as indicated. This note was generated with [employer] dictation software. It may contain incorrect words, spelling, and punctuation that were not noted in checking the note before signing. Inpatient E&M: 44647 [facility] L3
--- NOTE | 2020-06-19 13:15 | PN.ID_ITS ---
Patient Problems: Active and Suspected Problems Pneumonia due to COVID-19 virus (Acute) Hypoxia (Acute) History of coronary artery bypass graft (Acute) Subjective: Feeling better, no fever, some cough - Physical Exam Vitals/I&O's: Vital Signs Temp Pulse Resp BP Pulse Ox 98.0 F 71 22 H 96/51 L 89 06/19/20 13:00 06/19/20 13:00 06/19/20 13:00 06/19/20 13:00 06/19/20 13:00 Oxygen Flow Rate (L/min) 24 Oxygen Delivery Method Airvo Weight: 83.4 kg Body Mass Index (BMI) 25.4 Intake and Output for Last 24 Hours 06/17/20 06/18/20 06/19/20 23:59 23:59 23:59 Intake Total 2120 / 2320 650 / 950 700 / 700 Output Total 450 / 700 600 / 600 925 / 925 Balance 1670 / 1620 50 / 350 -225 / -225 General: Alert, Cooperative, No apparent distress Lungs: Clear to auscultation, Diminished Cardiovascular: Regular rate, Regular Rhythm Abdomen: Soft, Non Tender, Non-Distended Skin: No rashes Microbiology Past 72 Hours 06/16/20 08:34 Blood Culture (Wb) - Left Hand Blood Culture - Preliminary No growth in 48 hours. 06/16/20 08:21 Blood Culture (Wb) - Anticubital Left Blood Culture - Preliminary No growth in 48 hours. Laboratory Results 06/19/20 06:20: WBC 11.7 H, RBC 4.75, Hgb 14.5, Hct 43.8, MCV 92.2, MCH 30.5, MCHC 33.1, RDW Std Deviation 43.2, RDW Coeff of Jennie 12.8, Plt Count 385, MPV 9.8 06/19/20 06:20: Sodium 135 L, Potassium 4.2, Chloride 103, Carbon Dioxide 26.0, Anion Gap 6, BUN 29 H, Creatinine 1.04, Estim Creat Clear Calc 72.40, Est GFR (MDRD) Af Amer 91, Est GFR (MDRD) Non-Af 75, BUN/Creatinine Ratio 27.9 H, Glucose 152 H, Calcium 8.6, Total Bilirubin 0.50, AST 76 H, ALT 66 H, Alkaline Phosphatase 129 H, Total Protein 6.8, Albumin 2.5 L, Globulin 4.3 H, Albumin/Globulin Ratio 0.6 L Current Medications Acetaminophen (Acetaminophen 325 Mg Tablet) 650 mg PO Q6H PRN PRN PRN Reason: Pain Score 1-10/Temp > 100.7 F Last Admin: 06/17/20 12:53 Dose: 650 mg Documented by: Al Hydroxide/Mg Hydroxide (Mag Hydrox/Al Hydrox/Simeth 30 Ml Udc) 30 ml PO Q6H PRN PRN PRN Reason: Gastric Burning Albuterol Sulfate (Albuterol 2.5 Mg/3 Ml Vial.Neb.) 2.5 mg INHALATION Q2H PRN PRN PRN Reason: Shortness of Breath/Wheezing Albuterol/Ipratropium (Ipratropium/Albuterol Sulfate 3 Ml Ampul.Neb) 3 ml INHALATION Q4HWA.RT [facility] Last Admin: 06/19/20 11:27 Dose: 3 ml Documented by: Dexamethasone (Dexamethasone 4 Mg Tablet) 6 mg PO DAILY [facility] Stop: 06/25/20 10:01 Last Admin: 06/19/20 08:09 Dose: 6 mg Documented by: Enoxaparin Sodium (Enoxaparin 80 Mg/0.8 Ml Syringe) 80 mg SC Q12 [facility] Last Admin: 06/19/20 10:40 Dose: 80 mg Documented by: Remdesivir 100 mg/ Sodium (Chloride) 250 mls @ 125 mls/hr IV DAILY [facility]; Protocol Stop: 06/20/20 11:59 Last Admin: 06/19/20 10:37 Dose: 125 mls/hr Documented by: Levothyroxine Sodium (Levothyroxine 112 Mcg Tablet) 112 mcg PO DAILY [facility] Last Admin: 06/19/20 08:09 Dose: 112 mcg Documented by: Ondansetron HCl (Ondansetron 4 Mg/2 Ml Vial) 4 mg IV Q8H PRN PRN PRN Reason: NAUSEA/VOMITING Psyllium Hydrophilic Mucilloid (Psyllium 1 Packet) 1 packet PO DAILY PRN PRN PRN Reason: Constipation Sodium Chloride (0.9% Saline Lock 10 Ml Syringe) 10 - 40 ml IV UD PRN PRN Reason: SALINE FLUSH Last Admin: 06/19/20 10:38 Dose: 10 ml Documented by: Medical Necessity - Tobacco Use Smoking Status: Former smoker Tobacco Use: Cigarettes Route of nutrition/ use of supplements: [] Nutritional Intake: [] IV Site: [] Osei Catheter: [] - Assessment/Plan Antibiotics: [] Assessment/Plan: [] Active and Suspected Problems Pneumonia due to COVID-19 virus (Acute) Hypoxia (Acute) Hypothyroidism (Acute) Sx started 06/08/20. On dex, O2. Ddimer at 1.67, on full dose lovenox. Unable to get CT-PE due to contrast allergy. Got plasma 06/17, on remdesivir. No fever overnight, feeling better. Will follow
--- NOTE | 2020-06-19 14:27 | PCM.PROGNOTE ---
Patient Problems: Active and Suspected Problems Pneumonia due to COVID-19 virus (Acute) Hypoxia (Acute) History of coronary artery bypass graft (Acute) Subjective: Patient was seen and examined today, he remains on high flow oxygen at this time, he does not complain of any chest pain, shortness of breath, fever or chills. - Physical Exam Vitals/I&O's: Vital Signs Temp Pulse Resp BP Pulse Ox 97.7 F L 72 24 H 117/64 91 06/19/20 14:17 06/19/20 14:17 06/19/20 14:17 06/19/20 14:17 06/19/20 14:17 Oxygen Flow Rate (L/min) 24 Oxygen Delivery Method Airvo Weight: 83.4 kg Body Mass Index (BMI) 25.4 Intake and Output for Last 24 Hours 06/17/20 06/18/20 06/19/20 23:59 23:59 23:59 Intake Total 2120 / 2320 650 / 950 950 / 950 Output Total 450 / 700 600 / 600 925 / 925 Balance 1670 / 1620 50 / 350 25 / 25 General: Alert, Oriented x3, Cooperative, No apparent distress, Well developed, Well nourished HEENT: Atraumatic, PERRLA, EOMI, Normocephalic Oral: Moist Mucosa Neck: Supple, No JVD, Trachea Midline, Thyroid Normal Size and Texture Lungs: Clear to auscultation, Normal air movement, No rhonchi, No wheeze Cardiovascular: Regular rate, Regular Rhythm, Normal S1, Normal S2, No murmurs, PMI Normal, No rub noted, No Gallop Abdomen: Bowel Sounds Present, Soft, Non Tender, Non-Distended Extremities: No clubbing, No cyanosis, No edema, Capillary Refill Less than 3 Seconds Skin: No rashes, No breakdown Musculoskeletal: No Tenderness to Palpation of Joints or Extremities Neurological: Cranial nerves II-XII grossly intact, Neuro grossly intact, Sensory exam intact to light touch and pain Psych/Mental Status: Normal Affect, Appropriate, Alert and oriented to time, place, person, mood and affect Microbiology Past 72 Hours 06/16/20 08:34 Blood Culture (Wb) - Left Hand Blood Culture - Preliminary No growth in 48 hours. 06/16/20 08:21 Blood Culture (Wb) - Anticubital Left Blood Culture - Preliminary No growth in 48 hours. Laboratory Results 06/19/20 06:20: WBC 11.7 H, RBC 4.75, Hgb 14.5, Hct 43.8, MCV 92.2, MCH 30.5, MCHC 33.1, RDW Std Deviation 43.2, RDW Coeff of Jennie 12.8, Plt Count 385, MPV 9.8 06/19/20 06:20: Sodium 135 L, Potassium 4.2, Chloride 103, Carbon Dioxide 26.0, Anion Gap 6, BUN 29 H, Creatinine 1.04, Estim Creat Clear Calc 72.40, Est GFR (MDRD) Af Amer 91, Est GFR (MDRD) Non-Af 75, BUN/Creatinine Ratio 27.9 H, Glucose 152 H, Calcium 8.6, Total Bilirubin 0.50, AST 76 H, ALT 66 H, Alkaline Phosphatase 129 H, Total Protein 6.8, Albumin 2.5 L, Globulin 4.3 H, Albumin/Globulin Ratio 0.6 L Current Medications Acetaminophen (Acetaminophen 325 Mg Tablet) 650 mg PO Q6H PRN PRN PRN Reason: Pain Score 1-10/Temp > 100.7 F Last Admin: 06/17/20 12:53 Dose: 650 mg Documented by: Al Hydroxide/Mg Hydroxide (Mag Hydrox/Al Hydrox/Simeth 30 Ml Udc) 30 ml PO Q6H PRN PRN PRN Reason: Gastric Burning Albuterol Sulfate (Albuterol 2.5 Mg/3 Ml Vial.Neb.) 2.5 mg INHALATION Q2H PRN PRN PRN Reason: Shortness of Breath/Wheezing Albuterol/Ipratropium (Ipratropium/Albuterol Sulfate 3 Ml Ampul.Neb) 3 ml INHALATION Q4HWA.RT [facility] Last Admin: 06/19/20 11:27 Dose: 3 ml Documented by: Dexamethasone (Dexamethasone 4 Mg Tablet) 6 mg PO DAILY [facility] Stop: 06/25/20 10:01 Last Admin: 06/19/20 08:09 Dose: 6 mg Documented by: Enoxaparin Sodium (Enoxaparin 80 Mg/0.8 Ml Syringe) 80 mg SC Q12 [facility] Last Admin: 06/19/20 10:40 Dose: 80 mg Documented by: Remdesivir 100 mg/ Sodium (Chloride) 250 mls @ 125 mls/hr IV DAILY [facility]; Protocol Stop: 06/20/20 11:59 Last Infusion: 06/19/20 12:37 Dose: Infused Documented by: Levothyroxine Sodium (Levothyroxine 112 Mcg Tablet) 112 mcg PO DAILY [facility] Last Admin: 06/19/20 08:09 Dose: 112 mcg Documented by: Ondansetron HCl (Ondansetron 4 Mg/2 Ml Vial) 4 mg IV Q8H PRN PRN PRN Reason: NAUSEA/VOMITING Psyllium Hydrophilic Mucilloid (Psyllium 1 Packet) 1 packet PO DAILY PRN PRN PRN Reason: Constipation Sodium Chloride (0.9% Saline Lock 10 Ml Syringe) 10 - 40 ml IV UD PRN PRN Reason: SALINE FLUSH Last Admin: 06/19/20 10:38 Dose: 10 ml Documented by: Medical Necessity - Tobacco Use Smoking Status: Former smoker Tobacco Use: Cigarettes Assessment/Plan All Active Problems Pneumonia due to COVID-19 virus (Acute) Hypoxia (Acute) History of coronary artery bypass graft (Acute) #1 COVID-19 pneumonia-infectious diseases and pulmonary medicine are participating in his care #2 acute hypoxic respiratory failure secondary to #1 #3 coronary artery disease #4 hypothyroidism Inpatient E&M: 59007 Subs Hosp L2
[2020-06-20] VITALS (19 sets, daily range): BP systolic 125–130; BP diastolic 62–78; PULSE 64–81; RESP 12–35; TEMP 36.4–36.8; O2SAT 90–97
[2020-06-20 07:15] LABS: Hematocrit 42.5 % (40-54); Hemoglobin 14.4 g/dL (13.0-16.5); Mean Corp Hgb Conc 33.9 g/dL (32-36); Mean Corpuscular Hgb 30.8 pg (27.0-32.0); Platelet Count 398 K/mm3 (150-450); RBC Distribution Width CV 12.8 % (11.6-14.6); RBC Distribution Width SD 42.5 fl (35.1-43.9); Red Blood Count 4.67 M/mm3 (4.6-6.2); White Blood Count 12.7 K/mm3 (4.4-11.0)
[2020-06-20 07:56] LABS: ALB/GLOB Ratio 0.6 RATIO (0.9-2.4); AST(SGOT) 172 U/L (15-37); Alanine Aminotransfer ALT/SGPT 190 U/L (16-61); Albumin, Serum 2.4 g/dL (3.2-5.0); Alkaline Phosphatase 130 U/L (45-117); Anion Gap 4 (5-15); BUN 28 mg/dL (7-18); BUN/Creat Ratio 30.4 RATIO (10-20); Calcium,Total 8.8 mg/dL (8.5-10.1); Chloride 105 mmol/L (98-107); Creatinine, Serum 0.92 mg/dL (0.70-1.30); EST Glomerular Filtration Rate 87 mL/min (>60); Est Glom Filt Rate - Afr Amer 105 mL/min (>60); Estimated Creatinine Clearance 81.85 ml/min; Globulin 3.9 g/dL (2.2-4.2); Glucose 159 mg/dL (74-106); Potassium 4.7 mmol/L (3.5-5.1); Protein, Total 6.3 g/dL (6.4-8.2); Sodium Level 136 mmol/L (136-145)
--- NOTE | 2020-06-20 08:09 | PCM.PROGNOTE ---
Patient Problems: Active and Suspected Problems Pneumonia due to COVID-19 virus (Acute) Hypoxia (Acute) History of coronary artery bypass graft (Acute) Subjective: Patient was seen and examined today, he is currently on high flow oxygen and appears comfortable, patient denies any chest pain, severe shortness of breath, fever, or chills. Objective: General: Alert, Oriented x3, Cooperative, No apparent distress, Well developed, Well nourished HEENT: Atraumatic, PERRLA, EOMI, Normocephalic Oral: Moist Mucosa Neck: Supple, No JVD, Trachea Midline, Thyroid Normal Size and Texture Lungs: Clear to auscultation, Normal air movement, No rhonchi, No wheeze Cardiovascular: Regular rate, Regular Rhythm, Normal S1, Normal S2, No murmurs, PMI Normal, No rub noted, No Gallop Abdomen: Bowel Sounds Present, Soft, Non Tender, Non-Distended Extremities: No clubbing, No cyanosis, No edema, Capillary Refill Less than 3 Seconds Skin: No rashes, No breakdown Musculoskeletal: No Tenderness to Palpation of Joints or Extremities Neurological: Cranial nerves II-XII grossly intact, Neuro grossly intact, Sensory exam intact to light touch and pain Psych/Mental Status: Normal Affect, Appropriate, Alert and oriented to time, place, person, mood and affect - Physical Exam Vitals/I&O's: Vital Signs Temp Pulse Resp BP Pulse Ox 97.6 F L 73 26 H 130/71 H 90 06/20/20 03:04 06/20/20 06:00 06/20/20 05:35 06/20/20 03:04 06/20/20 05:35 Oxygen Flow Rate (L/min) 45 Oxygen Delivery Method Bi-pap Weight: 80.2 kg Body Mass Index (BMI) 25.4 Intake and Output for Last 24 Hours 06/18/20 06/19/20 06/20/20 23:59 23:59 23:59 Intake Total 650 / 950 2049 Output Total 600 / 600 1999 / 1999 775 / 775 Balance 50 / 350 50 / 50 -775 / -775 Microbiology Past 72 Hours 06/16/20 08:34 Blood Culture (Wb) - Left Hand Blood Culture - Preliminary No growth in 48 hours. 06/16/20 08:21 Blood Culture (Wb) - Anticubital Left Blood Culture - Preliminary No growth in 48 hours. Laboratory Results 06/20/20 06:58: WBC 12.7 H, RBC 4.67, Hgb 14.4, Hct 42.5, MCV 91.0, MCH 30.8, MCHC 33.9, RDW Std Deviation 42.5, RDW Coeff of Jennie 12.8, Plt Count 398, MPV 10.0 06/20/20 06:58: Sodium 136, Potassium 4.7, Chloride 105, Carbon Dioxide 27.0, Anion Gap 4 L, BUN 28 H, Creatinine 0.92, Estim Creat Clear Calc 81.85, Est GFR (MDRD) Af Amer 105, Est GFR (MDRD) Non-Af 87, BUN/Creatinine Ratio 30.4 H, Glucose 159 H, Calcium 8.8, Total Bilirubin 0.50, AST 172 H, ALT 190 H, Alkaline Phosphatase 130 H, Total Protein 6.3 L, Albumin 2.4 L, Globulin 3.9, Albumin/Globulin Ratio 0.6 L Current Medications Acetaminophen (Acetaminophen 325 Mg Tablet) 650 mg PO Q6H PRN PRN PRN Reason: Pain Score 1-10/Temp > 100.7 F Last Admin: 06/17/20 12:53 Dose: 650 mg Documented by: Al Hydroxide/Mg Hydroxide (Mag Hydrox/Al Hydrox/Simeth 30 Ml Udc) 30 ml PO Q6H PRN PRN PRN Reason: Gastric Burning Albuterol Sulfate (Albuterol 2.5 Mg/3 Ml Vial.Neb.) 2.5 mg INHALATION Q2H PRN PRN PRN Reason: Shortness of Breath/Wheezing Dexamethasone (Dexamethasone 4 Mg Tablet) 6 mg PO DAILY [facility] Stop: 06/25/20 10:01 Last Admin: 06/19/20 08:09 Dose: 6 mg Documented by: Enoxaparin Sodium (Enoxaparin 80 Mg/0.8 Ml Syringe) 80 mg SC Q12 [facility] Last Admin: 06/19/20 20:46 Dose: 80 mg Documented by: Remdesivir 100 mg/ Sodium (Chloride) 250 mls @ 125 mls/hr IV DAILY [facility]; Protocol Stop: 06/20/20 11:59 Last Infusion: 06/19/20 12:37 Dose: Infused Documented by: Levothyroxine Sodium (Levothyroxine 112 Mcg Tablet) 112 mcg PO DAILY [facility] Last Admin: 06/19/20 08:09 Dose: 112 mcg Documented by: Ondansetron HCl (Ondansetron 4 Mg/2 Ml Vial) 4 mg IV Q8H PRN PRN PRN Reason: NAUSEA/VOMITING Psyllium Hydrophilic Mucilloid (Psyllium 1 Packet) 1 packet PO DAILY PRN PRN PRN Reason: Constipation Sodium Chloride (0.9% Saline Lock 10 Ml Syringe) 10 - 40 ml IV UD PRN PRN Reason: SALINE FLUSH Last Admin: 06/19/20 20:47 Dose: 10 ml Documented by: Medical Necessity - Tobacco Use Smoking Status: Former smoker Tobacco Use: Cigarettes Assessment/Plan All Active Problems Pneumonia due to COVID-19 virus (Acute) Hypoxia (Acute) History of coronary artery bypass graft (Acute) #1 COVID-19 pneumonia-infectious diseases and pulmonary medicine are participating in his care #2 acute hypoxic respiratory failure secondary to #1, patient remains on high flow oxygen at this time #3 coronary artery disease #4 hypothyroidism Inpatient E&M: 41249 [facility] Hosp L2
--- NOTE | 2020-06-20 09:12 | PN_ITS ---
Patient Problems: Active and Suspected Problems Pneumonia due to COVID-19 virus (Acute) Hypoxia (Acute) History of coronary artery bypass graft (Acute) Subjective: The patient was seen and examined at the bedside this morning. Events from the last 24 hours have been reviewed. The patient is currently afebrile, hemodynamically stable and maintaining appropriate oxygen saturations on Airvo heated high flow with an FiO2 requirement of 50%.. The patient has already received convalescent plasma and remains on remdesivir, therapeutic Lovenox and Decadron. Transaminase levels continue to rise. Renal function is stable. Objective: The patient's most recent lab work, culture data and imaging studies have all been personally reviewed. Coronavirus PCR was positive on June 16. Blood cultures have shown no growth to date. - Physical Exam Vitals/I&O's: Vital Signs Temp Pulse Resp BP Pulse Ox 97.6 F L 68 24 H 130/71 H 94 06/20/20 03:04 06/20/20 06:45 06/20/20 06:45 06/20/20 03:04 06/20/20 06:45 Oxygen Flow Rate (L/min) 45 Oxygen Delivery Method Bi-pap Weight: 176 lb 12.972 oz Body Mass Index (BMI) 25.4 Intake and Output for Last 24 Hours 06/18/20 06/19/20 06/20/20 23:59 23:59 23:59 Intake Total 650 / 950 2049 Output Total 600 / 600 1999 775 / 775 Balance 50 / 350 50 / 50 -775 / -775 General: Alert, Cooperative, No apparent distress HEENT: Atraumatic, PERRLA, Normocephalic Oral: Moist Mucosa, No Gingival or Mucosal Lesions/ Ulcerations Neck: Supple, No Nodes, Trachea Midline Lungs: Diminished, - - No conversational dyspnea or accessory muscle use. Cardiovascular: Regular rate, Regular Rhythm, Normal S1, Normal S2, No murmurs Abdomen: Bowel Sounds Present, Soft, Non Tender Extremities: No clubbing, No cyanosis, No edema Skin: No breakdown Musculoskeletal: No Tenderness to Palpation of Joints or Extremities, No Muscle Wasting Lymphatic: No Cervical, Supraclavicular, or Inguinal Adenopathy Neurological: Cranial nerves II-XII grossly intact, Neuro grossly intact Psych/Mental Status: Alert and oriented to time, place, person, mood and affect Labs (Last 48 Hours) 06/19/20 06/19/20 06/20/20 06:20 06:20 06:58 WBC 11.7 H 12.7 H RBC 4.75 4.67 Hgb 14.5 14.4 Hct 43.8 42.5 MCV 92.2 91.0 MCH 30.5 30.8 MCHC 33.1 33.9 RDW Std Deviation 43.2 42.5 RDW Coeff of Jennie 12.8 12.8 Plt Count 385 398 MPV 9.8 10.0 Sodium 135 L Potassium 4.2 Chloride 103 Carbon Dioxide 26.0 Anion Gap 6 BUN 29 H Creatinine 1.04 Estim Creat Clear Calc 72.40 Est GFR (MDRD) Af Amer 91 Est GFR (MDRD) Non-Af 75 BUN/Creatinine Ratio 27.9 H Glucose 152 H Calcium 8.6 Total Bilirubin 0.50 AST 76 H ALT 66 H Alkaline Phosphatase 129 H Total Protein 6.8 Albumin 2.5 L Globulin 4.3 H Albumin/Globulin Ratio 0.6 L 06/20/20 06:58 WBC RBC Hgb Hct MCV MCH MCHC RDW Std Deviation RDW Coeff of Jennie Plt Count MPV Sodium 136 Potassium 4.7 Chloride 105 Carbon Dioxide 27.0 Anion Gap 4 L BUN 28 H Creatinine 0.92 Estim Creat Clear Calc 81.85 Est GFR (MDRD) Af Amer 105 Est GFR (MDRD) Non-Af 87 BUN/Creatinine Ratio 30.4 H Glucose 159 H Calcium 8.8 Total Bilirubin 0.50 AST 172 H ALT 190 H Alkaline Phosphatase 130 H Total Protein 6.3 L Albumin 2.4 L Globulin 3.9 Albumin/Globulin Ratio 0.6 L Microbiology 06/16/20 08:34 Blood Culture (Wb) - Left Hand Blood Culture - Preliminary No growth in 48 hours. 06/16/20 08:21 Blood Culture (Wb) - Anticubital Left Blood Culture - Preliminary No growth in 48 hours. Clinical Impression(s) from Imaging Studies Chest X-Ray 06/16/20 09:20 IMPRESSION: Since prior study, there has been progressive bilateral perihilar infiltrates worse on the right side. Electronically Signed: Mat Elizalde, at 9:51 EST , Service support , Current Medications Acetaminophen (Acetaminophen 325 Mg Tablet) 650 mg PO Q6H PRN PRN PRN Reason: Pain Score 1-10/Temp > 100.7 F Last Admin: 06/17/20 12:53 Dose: 650 mg Documented by: Al Hydroxide/Mg Hydroxide (Mag Hydrox/Al Hydrox/Simeth 30 Ml Udc) 30 ml PO Q6H PRN PRN PRN Reason: Gastric Burning Albuterol Sulfate (Albuterol 2.5 Mg/3 Ml Vial.Neb.) 2.5 mg INHALATION Q2H PRN PRN PRN Reason: Shortness of Breath/Wheezing Dexamethasone (Dexamethasone 4 Mg Tablet) 6 mg PO DAILY [facility] Stop: 06/25/20 10:01 Last Admin: 06/19/20 08:09 Dose: 6 mg Documented by: Enoxaparin Sodium (Enoxaparin 80 Mg/0.8 Ml Syringe) 80 mg SC Q12 ROXANNE Last Admin: 06/19/20 20:46 Dose: 80 mg Documented by: Remdesivir 100 mg/ Sodium (Chloride) 250 mls @ 125 mls/hr IV DAILY [facility]; Protocol Stop: 06/20/20 11:59 Last Infusion: 06/19/20 12:37 Dose: Infused Documented by: Levothyroxine Sodium (Levothyroxine 112 Mcg Tablet) 112 mcg PO DAILY [facility] Last Admin: 06/19/20 08:09 Dose: 112 mcg Documented by: Ondansetron HCl (Ondansetron 4 Mg/2 Ml Vial) 4 mg IV Q8H PRN PRN PRN Reason: NAUSEA/VOMITING Psyllium Hydrophilic Mucilloid (Psyllium 1 Packet) 1 packet PO DAILY PRN PRN PRN Reason: Constipation Sodium Chloride (0.9% Saline Lock 10 Ml Syringe) 10 - 40 ml IV UD PRN PRN Reason: SALINE FLUSH Last Admin: 06/19/20 20:47 Dose: 10 ml Documented by: Medical Necessity - Tobacco Use Smoking Status: Former smoker Tobacco Use: Cigarettes Assessment/Plan All Active Problems Pneumonia due to COVID-19 virus (Acute) Hypoxia (Acute) History of coronary artery bypass graft (Acute) RECOMMENDATIONS: 1. Continue remdesivir, Decadron and therapeutic Lovenox as ordered. 2. Wean FiO2 to maintain oxygen saturations at or above 90%. 3. Encourage incentive spirometer use and mobilize patient as tolerated. IMPRESSIONS: 1. Acute hypoxic respiratory failure secondary to COVID-19 pneumonia Continue current supportive measures including supplemental oxygen to maintain saturations at or above 90%. The patient has already received convalescent plasma and remains on remdesivir and Decadron. The patient will also be continued on Lovenox therapy as ordered. Continue to monitor liver and renal function in light of remdesivir administration. Encourage incentive spirometer use and mobilize patient as tolerated. 2. Coronary artery disease status post CABG/advanced age/history of smoking/hypothyroidism Complicates care, management, recovery and prognosis. Continue home medications as indicated. This note was generated with [employer] dictation software. It may contain incorrect words, spelling, and punctuation that were not noted in checking the note before signing. Inpatient E&M: 14247 Subs Hosp L2
[2020-06-20] MEDS: Levothyroxine 112 MCG Tablet PO (09:22)
[2020-06-20] MEDS: dexAMETHasone 4 MG Tablet 6 MG PO (09:22)
[2020-06-20] MEDS: Enoxaparin 80 MG/0.8 ML Syringe SC ×2 (09:22→21:17)
[2020-06-20] MEDS: 0.9% Saline Lock 10 ML Syringe IV (10:15)
--- NOTE | 2020-06-20 11:08 | CASEMGMT ---
Addendum entered by Luis Miguel Duenas 06/20/20 13:05: Intro role of CM to patient via phone. Pt is independent at home. He states he has electricity available and after discussing DME options, would like [facility] on discharge. Hernandez for self pay given to patient. Roxi RUCKER Original Note: RN CM Assessment Note Chart reviewed. Patient is on high flow oxygen and has not been able to speak on phone. Calls to are not answered. Per nurse, pt is ambulatory in room without DME. CM requested nurse ask patient if he has electric and a preference of DME provider. [facility] cost is $145.00/month Diagnosis: COVID 19 PCP: TIERRA Lopez Insurance: [employer] Preferred Pharmacy: [facility] Prescription Benefit: yes LNOK: , Lilia Vasques Living Arrangements: Lives independently with . 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 Will need to review with patient if he has electric availability and if home oxygen is needed. CM available for discharge planning coordination. Contact CM for any concerns/needs that may arise. Roxi RUCKER
[2020-06-21] VITALS (19 sets, daily range): BP systolic 97–135; BP diastolic 62–96; PULSE 62–84; RESP 12–24; TEMP 36.4–37.1; O2SAT 90–99
[2020-06-21 06:10] LABS: Hematocrit 43.8 % (40-54); Hemoglobin 14.5 g/dL (13.0-16.5); Mean Corp Hgb Conc 33.1 g/dL (32-36); Mean Corpuscular Hgb 30.3 pg (27.0-32.0); Mean Corpuscular Volume 91.6 fL (80-94); Mean Platelet Vol. 9.7 fl (6.2-12.0); Platelet Count 426 K/mm3 (150-450); RBC Distribution Width CV 12.7 % (11.6-14.6); RBC Distribution Width SD 42.9 fl (35.1-43.9); Red Blood Count 4.78 M/mm3 (4.6-6.2); White Blood Count 13.1 K/mm3 (4.4-11.0)
[2020-06-21 06:53] LABS: ALB/GLOB Ratio 0.8 RATIO (0.9-2.4); AST(SGOT) 82 U/L (15-37); Alanine Aminotransfer ALT/SGPT 169 U/L (16-61); Albumin, Serum 2.7 g/dL (3.2-5.0); Alkaline Phosphatase 134 U/L (45-117); Anion Gap 5 (5-15); BUN 28 mg/dL (7-18); BUN/Creat Ratio 30.1 RATIO (10-20); Calcium,Total 8.8 mg/dL (8.5-10.1); Chloride 101 mmol/L (98-107); Creatinine, Serum 0.93 mg/dL (0.70-1.30); EST Glomerular Filtration Rate 86 mL/min (>60); Est Glom Filt Rate - Afr Amer 104 mL/min (>60); Estimated Creatinine Clearance 80.97 ml/min; Globulin 3.3 g/dL (2.2-4.2); Glucose 133 mg/dL (74-106); Potassium 5.6 mmol/L (3.5-5.1); Sodium Level 135 mmol/L (136-145)
[2020-06-21] MEDS: Enoxaparin 80 MG/0.8 ML Syringe SC ×2 (10:07→22:02)
[2020-06-21] MEDS: Levothyroxine 112 MCG Tablet PO (10:07)
[2020-06-21] MEDS: dexAMETHasone 4 MG Tablet 6 MG PO (10:08)
--- NOTE | 2020-06-21 10:17 | PCM.PN.PUL ---
Patient Problems: Active and Suspected Problems Pneumonia due to COVID-19 virus (Acute) Hypoxia (Acute) History of coronary artery bypass graft (Acute) Subjective: The patient was seen and examined at the bedside this morning. Events from the last 24 hours have been reviewed. The patient is currently afebrile, hemodynamically stable and maintaining appropriate oxygen saturations on Airvo heated high flow with an FiO2 requirement of 54% and flow rate of 40 L/min. The patient has already received convalescent plasma and completed a treatment course of remdesivir. He remains on therapeutic Lovenox and Decadron. Objective: The patient's most recent lab work, culture data and imaging studies have all been personally reviewed. Coronavirus PCR was positive on June 16. Blood cultures have shown no growth to date. - Physical Exam Vitals/I&O's: Vital Signs Temp Pulse Resp BP Pulse Ox 97.8 F 84 20 H 120/70 98 06/21/20 10:11 06/21/20 10:11 06/21/20 10:11 06/21/20 10:11 06/21/20 10:11 Oxygen Flow Rate (L/min) 40 Oxygen Delivery Method Airvo Weight: 176 lb 12.972 oz Body Mass Index (BMI) 25.4 Intake and Output for Last 24 Hours 06/19/20 06/20/20 06/21/20 23:59 23:59 23:59 Intake Total 2049 / 2049 490 / 490 120 / 120 Output Total 1999 2950 / 2950 200 / 200 Balance 50 / 50 -2460 / -2460 -80 / -80 General: Alert, No apparent distress HEENT: Atraumatic, Normocephalic Oral: Moist Mucosa Neck: Supple Lungs: Diminished Cardiovascular: Regular rate, Regular Rhythm Abdomen: Bowel Sounds Present, Soft, Non Tender Extremities: No clubbing, No cyanosis, No edema Skin: No breakdown Musculoskeletal: No Tenderness to Palpation of Joints or Extremities, No Muscle Wasting Lymphatic: No Cervical, Supraclavicular, or Inguinal Adenopathy Neurological: Cranial nerves II-XII grossly intact, Neuro grossly intact Psych/Mental Status: Normal Affect, Appropriate Labs (Last 48 Hours) 06/20/20 06/20/20 06/21/20 06:58 06:58 05:48 WBC 12.7 H 13.1 H RBC 4.67 4.78 Hgb 14.4 14.5 Hct 42.5 43.8 MCV 91.0 91.6 MCH 30.8 30.3 MCHC 33.9 33.1 RDW Std Deviation 42.5 42.9 RDW Coeff of Jennie 12.8 12.7 Plt Count 398 426 MPV 10.0 9.7 Sodium 136 Potassium 4.7 Chloride 105 Carbon Dioxide 27.0 Anion Gap 4 L BUN 28 H Creatinine 0.92 Estim Creat Clear Calc 81.85 Est GFR (MDRD) Af Amer 105 Est GFR (MDRD) Non-Af 87 BUN/Creatinine Ratio 30.4 H Glucose 159 H Calcium 8.8 Total Bilirubin 0.50 AST 172 H ALT 190 H Alkaline Phosphatase 130 H Total Protein 6.3 L Albumin 2.4 L Globulin 3.9 Albumin/Globulin Ratio 0.6 L 06/21/20 05:48 WBC RBC Hgb Hct MCV MCH MCHC RDW Std Deviation RDW Coeff of Jennie Plt Count MPV Sodium 135 L Potassium 5.6 H Chloride 101 Carbon Dioxide 29.0 Anion Gap 5 BUN 28 H Creatinine 0.93 Estim Creat Clear Calc 80.97 Est GFR (MDRD) Af Amer 104 Est GFR (MDRD) Non-Af 86 BUN/Creatinine Ratio 30.1 H Glucose 133 H Calcium 8.8 Total Bilirubin 0.60 AST 82 H ALT 169 H Alkaline Phosphatase 134 H Total Protein 6.0 L Albumin 2.7 L Globulin 3.3 Albumin/Globulin Ratio 0.8 L Microbiology 06/16/20 08:34 Blood Culture (Wb) - Left Hand Blood Culture - Final No growth in 5 days. 06/16/20 08:21 Blood Culture (Wb) - Anticubital Left Blood Culture - Final No growth in 5 days. Clinical Impression(s) from Imaging Studies Chest X-Ray 06/16/20 09:20 IMPRESSION: Since prior study, there has been progressive bilateral perihilar infiltrates worse on the right side. Electronically Signed: Mat Elizalde, at 9:51 EST , Service support , Current Medications Acetaminophen (Acetaminophen 325 Mg Tablet) 650 mg PO Q6H PRN PRN PRN Reason: Pain Score 1-10/Temp > 100.7 F Last Admin: 06/17/20 12:53 Dose: 650 mg Documented by: Al Hydroxide/Mg Hydroxide (Mag Hydrox/Al Hydrox/Simeth 30 Ml Udc) 30 ml PO Q6H PRN PRN PRN Reason: Gastric Burning Albuterol Sulfate (Albuterol 2.5 Mg/3 Ml Vial.Neb.) 2.5 mg INHALATION Q2H PRN PRN PRN Reason: Shortness of Breath/Wheezing Dexamethasone (Dexamethasone 4 Mg Tablet) 6 mg PO DAILY [facility] Stop: 06/25/20 10:01 Last Admin: 06/21/20 10:08 Dose: 6 mg Documented by: Enoxaparin Sodium (Enoxaparin 80 Mg/0.8 Ml Syringe) 80 mg SC Q12 [facility] Last Admin: 06/21/20 10:07 Dose: 80 mg Documented by: Levothyroxine Sodium (Levothyroxine 112 Mcg Tablet) 112 mcg PO DAILY [facility] Last Admin: 06/21/20 10:07 Dose: 112 mcg Documented by: Ondansetron HCl (Ondansetron 4 Mg/2 Ml Vial) 4 mg IV Q8H PRN PRN PRN Reason: NAUSEA/VOMITING Psyllium Hydrophilic Mucilloid (Psyllium 1 Packet) 1 packet PO DAILY PRN PRN PRN Reason: Constipation Sodium Chloride (0.9% Saline Lock 10 Ml Syringe) 10 - 40 ml IV UD PRN PRN Reason: SALINE FLUSH Last Admin: 06/20/20 10:15 Dose: 10 ml Documented by: Medical Necessity - Tobacco Use Smoking Status: Former smoker Tobacco Use: Cigarettes Assessment/Plan All Active Problems Pneumonia due to COVID-19 virus (Acute) Hypoxia (Acute) History of coronary artery bypass graft (Acute) RECOMMENDATIONS: 1. Continue Decadron and therapeutic Lovenox as ordered. 2. Wean FiO2 to maintain oxygen saturations at or above 90%. 3. Encourage incentive spirometer use and mobilize patient as tolerated. IMPRESSIONS: 1. Acute hypoxic respiratory failure secondary to COVID-19 pneumonia Continue current supportive measures including supplemental oxygen to maintain saturations at or above 90%. The patient has already received convalescent plasma and completed a treatment course of remdesivir. The patient will be continued on Decadron and Lovenox therapy as ordered. Encourage incentive spirometer use and mobilize patient as tolerated. 2. Coronary artery disease status post CABG/advanced age/history of smoking/hypothyroidism Complicates care, management, recovery and prognosis. Continue home medications as indicated. This note was generated with [employer] dictation software. It may contain incorrect words, spelling, and punctuation that were not noted in checking the note before signing. Inpatient E&M: 30770 Subs Hosp L2
--- NOTE | 2020-06-21 13:35 | PN_ITS ---
Patient Problems: Active and Suspected Problems Pneumonia due to COVID-19 virus (Acute) Hypoxia (Acute) History of coronary artery bypass graft (Acute) Subjective: Patient was seen and examined today, he is comfortable at rest, he does not complain of any fevers chills or chest discomfort. Patient still requiring high flow oxygen to maintain his pulse ox. Objective: General: Alert, Oriented x3, Cooperative, No apparent distress, Well developed, Well nourished HEENT: Atraumatic, PERRLA, EOMI, Normocephalic Oral: Moist Mucosa Neck: Supple, No JVD, Trachea Midline, Thyroid Normal Size and Texture Lungs: Clear to auscultation, Normal air movement, No rhonchi, No wheeze Cardiovascular: Regular rate, Regular Rhythm, Normal S1, Normal S2, No murmurs, PMI Normal, No rub noted, No Gallop Abdomen: Bowel Sounds Present, Soft, Non Tender, Non-Distended Extremities: No clubbing, No cyanosis, No edema, Capillary Refill Less than 3 Seconds Skin: No rashes, No breakdown Musculoskeletal: No Tenderness to Palpation of Joints or Extremities Neurological: Cranial nerves II-XII grossly intact, Neuro grossly intact, Sensory exam intact to light touch and pain Psych/Mental Status: Normal Affect, Appropriate, Alert and oriented to time, place, person, mood and affect - Physical Exam Vitals/I&O's: Vital Signs Temp Pulse Resp BP Pulse Ox 97.8 F 71 20 H 120/70 98 06/21/20 10:11 06/21/20 11:00 06/21/20 10:11 06/21/20 10:11 06/21/20 10:11 Oxygen Flow Rate (L/min) 40 Oxygen Delivery Method Airvo Weight: 80.2 kg Body Mass Index (BMI) 25.4 Intake and Output for Last 24 Hours 06/19/20 06/20/20 06/21/20 23:59 23:59 23:59 Intake Total 2049 / 2049 490 / 490 120 / 120 Output Total 1999 2950 / 2950 200 / 200 Balance 50 / 50 -2460 / -2460 -80 / -80 Microbiology Past 72 Hours 06/16/20 08:34 Blood Culture (Wb) - Left Hand Blood Culture - Final No growth in 5 days. 06/16/20 08:21 Blood Culture (Wb) - Anticubital Left Blood Culture - Final No growth in 5 days. Laboratory Results 06/21/20 05:48: WBC 13.1 H, RBC 4.78, Hgb 14.5, Hct 43.8, MCV 91.6, MCH 30.3, MCHC 33.1, RDW Std Deviation 42.9, RDW Coeff of Jennie 12.7, Plt Count 426, MPV 9.7 06/21/20 05:48: Sodium 135 L, Potassium 5.6 H, Chloride 101, Carbon Dioxide 29.0, Anion Gap 5, BUN 28 H, Creatinine 0.93, Estim Creat Clear Calc 80.97, Est GFR (MDRD) Af Amer 104, Est GFR (MDRD) Non-Af 86, BUN/Creatinine Ratio 30.1 H, Glucose 133 H, Calcium 8.8, Total Bilirubin 0.60, AST 82 H, ALT 169 H, Alkaline Phosphatase 134 H, Total Protein 6.0 L, Albumin 2.7 L, Globulin 3.3, Albumin/Globulin Ratio 0.8 L Current Medications Acetaminophen (Acetaminophen 325 Mg Tablet) 650 mg PO Q6H PRN PRN PRN Reason: Pain Score 1-10/Temp > 100.7 F Last Admin: 06/17/20 12:53 Dose: 650 mg Documented by: Al Hydroxide/Mg Hydroxide (Mag Hydrox/Al Hydrox/Simeth 30 Ml Udc) 30 ml PO Q6H PRN PRN PRN Reason: Gastric Burning Albuterol Sulfate (Albuterol 2.5 Mg/3 Ml Vial.Neb.) 2.5 mg INHALATION Q2H PRN PRN PRN Reason: Shortness of Breath/Wheezing Dexamethasone (Dexamethasone 4 Mg Tablet) 6 mg PO DAILY [facility] Stop: 06/25/20 10:01 Last Admin: 06/21/20 10:08 Dose: 6 mg Documented by: Enoxaparin Sodium (Enoxaparin 80 Mg/0.8 Ml Syringe) 80 mg SC Q12 [facility] Last Admin: 06/21/20 10:07 Dose: 80 mg Documented by: Levothyroxine Sodium (Levothyroxine 112 Mcg Tablet) 112 mcg PO DAILY [facility] Last Admin: 06/21/20 10:07 Dose: 112 mcg Documented by: Ondansetron HCl (Ondansetron 4 Mg/2 Ml Vial) 4 mg IV Q8H PRN PRN PRN Reason: NAUSEA/VOMITING Psyllium Hydrophilic Mucilloid (Psyllium 1 Packet) 1 packet PO DAILY PRN PRN PRN Reason: Constipation Sodium Chloride (0.9% Saline Lock 10 Ml Syringe) 10 - 40 ml IV UD PRN PRN Reason: SALINE FLUSH Last Admin: 06/20/20 10:15 Dose: 10 ml Documented by: Medical Necessity - Tobacco Use Smoking Status: Former smoker Tobacco Use: Cigarettes Assessment/Plan All Active Problems Pneumonia due to COVID-19 virus (Acute) Hypoxia (Acute) History of coronary artery bypass graft (Acute) #1 COVID-19 pneumonia-infectious diseases and pulmonary medicine are participating in his care, his overall medical condition remains unchanged at this time #2 acute hypoxic respiratory failure secondary to #1, patient remains on high flow oxygen at this time #3 coronary artery disease #4 hypothyroidism Inpatient E&M: 44867 Subs Hosp L2
--- NOTE | 2020-06-21 15:23 | PCM.PN.ID ---
Patient Problems: Active and Suspected Problems Pneumonia due to COVID-19 virus (Acute) Hypoxia (Acute) History of coronary artery bypass graft (Acute) Subjective: Feeling better, less SOB, no fever - Physical Exam Vitals/I&O's: Vital Signs Temp Pulse Resp BP Pulse Ox 98.8 F 77 20 H 115/88 H 91 06/21/20 15:01 06/21/20 15:01 06/21/20 15:01 06/21/20 15:01 06/21/20 15:01 Oxygen Flow Rate (L/min) 40 Oxygen Delivery Method Airvo Weight: 80.2 kg Body Mass Index (BMI) 25.4 Intake and Output for Last 24 Hours 06/19/20 06/20/20 06/21/20 23:59 23:59 23:59 Intake Total 2049 / 2049 490 / 490 320 / 320 Output Total 1999 2950 / 2950 600 / 600 Balance 50 / 50 -2460 / -2460 -280 / -280 General: Alert, Cooperative, No apparent distress Lungs: Clear to auscultation, Diminished Cardiovascular: Regular rate, Regular Rhythm Abdomen: Soft, Non Tender, Non-Distended Skin: No rashes Microbiology Past 72 Hours 06/16/20 08:34 Blood Culture (Wb) - Left Hand Blood Culture - Final No growth in 5 days. 06/16/20 08:21 Blood Culture (Wb) - Anticubital Left Blood Culture - Final No growth in 5 days. Laboratory Results 06/21/20 05:48: WBC 13.1 H, RBC 4.78, Hgb 14.5, Hct 43.8, MCV 91.6, MCH 30.3, MCHC 33.1, RDW Std Deviation 42.9, RDW Coeff of Jennie 12.7, Plt Count 426, MPV 9.7 06/21/20 05:48: Sodium 135 L, Potassium 5.6 H, Chloride 101, Carbon Dioxide 29.0, Anion Gap 5, BUN 28 H, Creatinine 0.93, Estim Creat Clear Calc 80.97, Est GFR (MDRD) Af Amer 104, Est GFR (MDRD) Non-Af 86, BUN/Creatinine Ratio 30.1 H, Glucose 133 H, Calcium 8.8, Total Bilirubin 0.60, AST 82 H, ALT 169 H, Alkaline Phosphatase 134 H, Total Protein 6.0 L, Albumin 2.7 L, Globulin 3.3, Albumin/Globulin Ratio 0.8 L Current Medications Acetaminophen (Acetaminophen 325 Mg Tablet) 650 mg PO Q6H PRN PRN PRN Reason: Pain Score 1-10/Temp > 100.7 F Last Admin: 06/17/20 12:53 Dose: 650 mg Documented by: Al Hydroxide/Mg Hydroxide (Mag Hydrox/Al Hydrox/Simeth 30 Ml Udc) 30 ml PO Q6H PRN PRN PRN Reason: Gastric Burning Albuterol Sulfate (Albuterol 2.5 Mg/3 Ml Vial.Neb.) 2.5 mg INHALATION Q2H PRN PRN PRN Reason: Shortness of Breath/Wheezing Dexamethasone (Dexamethasone 4 Mg Tablet) 6 mg PO DAILY COUNTS INCLUDE 234 BEDS AT THE [facility] Stop: 06/25/20 10:01 Last Admin: 06/21/20 10:08 Dose: 6 mg Documented by: Enoxaparin Sodium (Enoxaparin 80 Mg/0.8 Ml Syringe) 80 mg SC Q12 COUNTS INCLUDE 234 BEDS AT THE [facility] Last Admin: 06/21/20 10:07 Dose: 80 mg Documented by: Levothyroxine Sodium (Levothyroxine 112 Mcg Tablet) 112 mcg PO DAILY COUNTS INCLUDE 234 BEDS AT THE [facility] Last Admin: 06/21/20 10:07 Dose: 112 mcg Documented by: Ondansetron HCl (Ondansetron 4 Mg/2 Ml Vial) 4 mg IV Q8H PRN PRN PRN Reason: NAUSEA/VOMITING Psyllium Hydrophilic Mucilloid (Psyllium 1 Packet) 1 packet PO DAILY PRN PRN PRN Reason: Constipation Sodium Chloride (0.9% Saline Lock 10 Ml Syringe) 10 - 40 ml IV UD PRN PRN Reason: SALINE FLUSH Last Admin: 06/20/20 10:15 Dose: 10 ml Documented by: Medical Necessity - Tobacco Use Smoking Status: Former smoker Tobacco Use: Cigarettes Route of nutrition/ use of supplements: [] Nutritional Intake: [] IV Site: [] Osei Catheter: [] - Assessment/Plan Antibiotics: [] Assessment/Plan: [] Active and Suspected Problems Pneumonia due to COVID-19 virus (Acute) Hypoxia (Acute) Hypothyroidism (Acute) Sx started 06/08/20. On dex, O2. Ddimer at 1.67, on full dose lovenox. Unable to get CT-PE due to contrast allergy. Got plasma 06/17, completed remdesivir. No fever overnight, feeling better. Ok for discharge to complete 10 days total of dex once O2 is stable enough to leave. Will follow
[2020-06-21] MEDS: 0.9% Saline Lock 10 ML Syringe IV (22:02)
[2020-06-22] VITALS (17 sets, daily range): BP systolic 101–155; BP diastolic 53–76; PULSE 60–87; RESP 18–20; TEMP 36.4–36.6; O2SAT 87–100; BMI 24.0
[2020-06-22] MEDS: dexAMETHasone 4 MG Tablet 6 MG PO (09:21)
[2020-06-22] MEDS: Levothyroxine 112 MCG Tablet PO (09:21)
[2020-06-22] MEDS: Enoxaparin 80 MG/0.8 ML Syringe SC ×2 (09:22→21:15)
--- NOTE | 2020-06-22 10:56 | PCM.PROGNOTE ---
Patient Problems: Active and Suspected Problems Pneumonia due to COVID-19 virus (Acute) Hypoxia (Acute) History of coronary artery bypass graft (Acute) Subjective: Was seen and examined today, he remains on high flow oxygen, he does not complain of any shortness of breath, chest pain, or chills or fever Objective: General: Alert, Oriented x3, Cooperative, No apparent distress, Well developed, Well nourished HEENT: Atraumatic, PERRLA, EOMI, Normocephalic Oral: Moist Mucosa Neck: Supple, No JVD, Trachea Midline, Thyroid Normal Size and Texture Lungs: Clear to auscultation, Normal air movement, No rhonchi, No wheeze Cardiovascular: Regular rate, Regular Rhythm, Normal S1, Normal S2, No murmurs, PMI Normal, No rub noted, No Gallop Abdomen: Bowel Sounds Present, Soft, Non Tender, Non-Distended Extremities: No clubbing, No cyanosis, No edema, Capillary Refill Less than 3 Seconds Skin: No rashes, No breakdown Musculoskeletal: No Tenderness to Palpation of Joints or Extremities Neurological: Cranial nerves II-XII grossly intact, Neuro grossly intact, Sensory exam intact to light touch and pain Psych/Mental Status: Normal Affect, Appropriate, Alert and oriented to time, place, person, mood and affect - Physical Exam Vitals/I&O's: Vital Signs Temp Pulse Resp BP Pulse Ox 97.7 F L 72 18 101/53 L 97 06/22/20 09:25 06/22/20 09:25 06/22/20 09:25 06/22/20 09:25 06/22/20 09:25 Oxygen Flow Rate (L/min) 59 Oxygen Delivery Method Airvo Weight: 78.3 kg Body Mass Index (BMI) 25.4 Intake and Output for Last 24 Hours 06/20/20 06/21/20 06/22/20 23:59 23:59 23:59 Intake Total 490 / 490 420 / 420 100 / 100 Output Total 2950 / 2950 875 / 875 500 / 500 Balance -2460 / -2460 -455 / -455 -400 / -400 Microbiology Past 72 Hours 06/16/20 08:34 Blood Culture (Wb) - Left Hand Blood Culture - Final No growth in 5 days. 06/16/20 08:21 Blood Culture (Wb) - Anticubital Left Blood Culture - Final No growth in 5 days. Current Medications Acetaminophen (Acetaminophen 325 Mg Tablet) 650 mg PO Q6H PRN PRN PRN Reason: Pain Score 1-10/Temp > 100.7 F Last Admin: 06/17/20 12:53 Dose: 650 mg Documented by: Al Hydroxide/Mg Hydroxide (Mag Hydrox/Al Hydrox/Simeth 30 Ml Udc) 30 ml PO Q6H PRN PRN PRN Reason: Gastric Burning Albuterol Sulfate (Albuterol 2.5 Mg/3 Ml Vial.Neb.) 2.5 mg INHALATION Q2H PRN PRN PRN Reason: Shortness of Breath/Wheezing Dexamethasone (Dexamethasone 4 Mg Tablet) 6 mg PO DAILY [facility] Stop: 06/25/20 10:01 Last Admin: 06/22/20 09:21 Dose: 6 mg Documented by: Enoxaparin Sodium (Enoxaparin 80 Mg/0.8 Ml Syringe) 80 mg SC Q12 [facility] Last Admin: 06/22/20 09:22 Dose: 80 mg Documented by: Levothyroxine Sodium (Levothyroxine 112 Mcg Tablet) 112 mcg PO DAILY [facility] Last Admin: 06/22/20 09:21 Dose: 112 mcg Documented by: Ondansetron HCl (Ondansetron 4 Mg/2 Ml Vial) 4 mg IV Q8H PRN PRN PRN Reason: NAUSEA/VOMITING Psyllium Hydrophilic Mucilloid (Psyllium 1 Packet) 1 packet PO DAILY PRN PRN PRN Reason: Constipation Sodium Chloride (0.9% Saline Lock 10 Ml Syringe) 10 - 40 ml IV UD PRN PRN Reason: SALINE FLUSH Last Admin: 06/21/20 22:02 Dose: 10 ml Documented by: Medical Necessity - Tobacco Use Smoking Status: Former smoker Tobacco Use: Cigarettes Assessment/Plan All Active Problems Pneumonia due to COVID-19 virus (Acute) Hypoxia (Acute) History of coronary artery bypass graft (Acute) #1 COVID-19 pneumonia-infectious diseases and pulmonary medicine are participating in his care, his overall medical condition remains unchanged at this time #2 acute hypoxic respiratory failure secondary to #1, patient remains on high flow oxygen at this time attempts will be made to wean his oxygen #3 coronary artery disease #4 hypothyroidism Inpatient E&M: 30020 [facility] Hosp L2
--- NOTE | 2020-06-22 12:04 | PCM.NTREPORT ---
Nutrition Therapy Report - History Nutrition Services has been consulted to:: Manage nutrient details of diet order Current diet / nutrition support order:: regular, ensure enlive 120mL w/ meals - Anthropometric Measurements Height:: 5 ft 11 in Weight:: 78.3 kg Body Mass Index (BMI):: 24.0 - Relevant Labs Relevant Labs:: WBC 13.1 K/mm3 (4.4-11.0) H 06/21/20 05:48 RBC 4.36 M/mm3 (4.6-6.2) L 06/18/20 05:36 Neut % (Auto) 93.7 % (47-70) H 06/16/20 08:21 Lymph % (Auto) 2.4 % (19-41) L 06/16/20 08:21 Absolute Neuts (auto) 9.7 X10^3/uL (2.0-7.7) H 06/16/20 08:21 Absolute Lymphs (auto) 0.25 X10^3/uL (0.83-4.51) L 06/16/20 08:21 D-Dimer Quant (PE/DVT) 1.67 FEU/ug/m (0.27-0.49) H* 06/16/20 08:21 Sodium 135 mmol/L (136-145) L 06/21/20 05:48 Potassium 5.6 mmol/L (3.5-5.1) H 06/21/20 05:48 Anion Gap 4 (5-15) L 06/20/20 06:58 BUN 28 mg/dL (7-18) H 06/21/20 05:48 BUN/Creatinine Ratio 30.1 RATIO (10-20) H 06/21/20 05:48 Glucose 133 mg/dL (74-106) H 06/21/20 05:48 Calcium 8.2 mg/dL (8.5-10.1) L 06/16/20 08:21 AST 82 U/L (15-37) H 06/21/20 05:48 ALT 169 U/L (16-61) H 06/21/20 05:48 Alkaline Phosphatase 134 U/L (45-117) H 06/21/20 05:48 Total Protein 6.0 g/dL (6.4-8.2) L 06/21/20 05:48 Albumin 2.7 g/dL (3.2-5.0) L 06/21/20 05:48 Globulin 4.3 g/dL (2.2-4.2) H 06/19/20 06:20 Albumin/Globulin Ratio 0.8 RATIO (0.9-2.4) L 06/21/20 05:48 Procalcitonin 1.01 ng/mL (0.00-0.09) H 06/16/20 08:21 - Assessment Food / Nutrition-Related History:: Spoke w/ pt via room phone- remains in isolation d/t COVID-19. Describes fair intake at breakfast this AM, feels appetite/intake is improving over the past day or so as he was not eating much [employer]. Drinking Ensure at all meals. Wt decrease of 4.3kg/5.2% noted since admission on 06/16. It does not appear that pt was on diuretics. - Nutrition Diagnosis Problem / Etiology / Signs & Symptoms (PES):: Pt w/ severe, acute malnutrition r/t inadequate energy intake w/ COVID-19 infection as evidenced by estimated PO intake meeting less than 50% of estimated needs for ~5 days and 4.3 kg/5.2% wt loss x 6 days. Evidence of Malnutrition Exists:: Yes Severe PCM:: Acute Illness - Nutrition Intervention Nutrition Prescription:: 8070-2061 calories, 70-80 g protein/day - Food / Nutrient Delivery Interventions Summary of nutrition intervention:: Will continue w/ ensure enlive as ordered - pt agreeable. No nutritional concerns at this time from pt. - MNT Monitoring Further MNT monitoring and evaluation required?: Yes MNT Follow-up in:: 3-5 days
--- NOTE | 2020-06-22 13:29 | PN_ITS ---
Patient Problems: Active and Suspected Problems Pneumonia due to COVID-19 virus (Acute) Hypoxia (Acute) History of coronary artery bypass graft (Acute) Subjective: The patient was seen and examined at the bedside this morning. Events from the last 24 hours have been reviewed. The patient is currently afebrile, hemodynamically stable and maintaining appropriate oxygen saturations on Airvo heated high flow with an FiO2 requirement of 40%. The patient has already received convalescent plasma and completed a treatment course of remdesivir. He remains on therapeutic Lovenox and Decadron. He is without complaints of dyspnea this morning. Objective: The patient's most recent lab work, culture data and imaging studies have all been personally reviewed. Coronavirus PCR was positive on June 16. Blood cultures have shown no growth to date. - Physical Exam Vitals/I&O's: Vital Signs Temp Pulse Resp BP Pulse Ox 97.7 F L 64 18 101/53 L 100 06/22/20 09:25 06/22/20 11:40 06/22/20 11:40 06/22/20 09:25 06/22/20 11:40 Oxygen Flow Rate (L/min) 59 Oxygen Delivery Method Airvo Weight: 172 lb 9.951 oz Body Mass Index (BMI) 24.0 Intake and Output for Last 24 Hours 06/20/20 06/21/20 06/22/20 23:59 23:59 23:59 Intake Total 490 / 490 420 / 420 340 / 340 Output Total 2950 / 2950 875 / 875 800 / 800 Balance -2460 / -2460 -455 / -455 -460 / -460 General: Alert, Cooperative, No apparent distress HEENT: Atraumatic, PERRLA, Normocephalic Oral: Moist Mucosa, No Gingival or Mucosal Lesions/ Ulcerations Neck: Supple, No Nodes, Trachea Midline Lungs: No rhonchi, No wheeze, No rales, Diminished Cardiovascular: Regular rate, Regular Rhythm Abdomen: Bowel Sounds Present, Soft, Non Tender Extremities: No clubbing, No cyanosis, No edema Skin: No breakdown Musculoskeletal: No Tenderness to Palpation of Joints or Extremities, No Muscle Wasting Lymphatic: No Cervical, Supraclavicular, or Inguinal Adenopathy Neurological: Cranial nerves II-XII grossly intact, Neuro grossly intact Psych/Mental Status: Normal Affect, Appropriate Labs (Last 48 Hours) 06/21/20 06/21/20 05:48 05:48 WBC 13.1 H RBC 4.78 Hgb 14.5 Hct 43.8 MCV 91.6 MCH 30.3 MCHC 33.1 RDW Std Deviation 42.9 RDW Coeff of Jennie 12.7 Plt Count 426 MPV 9.7 Sodium 135 L Potassium 5.6 H Chloride 101 Carbon Dioxide 29.0 Anion Gap 5 BUN 28 H Creatinine 0.93 Estim Creat Clear Calc 80.97 Est GFR (MDRD) Af Amer 104 Est GFR (MDRD) Non-Af 86 BUN/Creatinine Ratio 30.1 H Glucose 133 H Calcium 8.8 Total Bilirubin 0.60 AST 82 H ALT 169 H Alkaline Phosphatase 134 H Total Protein 6.0 L Albumin 2.7 L Globulin 3.3 Albumin/Globulin Ratio 0.8 L Microbiology 06/16/20 08:34 Blood Culture (Wb) - Left Hand Blood Culture - Final No growth in 5 days. 06/16/20 08:21 Blood Culture (Wb) - Anticubital Left Blood Culture - Final No growth in 5 days. Clinical Impression(s) from Imaging Studies Chest X-Ray 06/16/20 09:20 IMPRESSION: Since prior study, there has been progressive bilateral perihilar infiltrates worse on the right side. Electronically Signed: Mat Elizalde, at 9:51 EST , Service support , Current Medications Acetaminophen (Acetaminophen 325 Mg Tablet) 650 mg PO Q6H PRN PRN PRN Reason: Pain Score 1-10/Temp > 100.7 F Last Admin: 06/17/20 12:53 Dose: 650 mg Documented by: Al Hydroxide/Mg Hydroxide (Mag Hydrox/Al Hydrox/Simeth 30 Ml Udc) 30 ml PO Q6H PRN PRN PRN Reason: Gastric Burning Albuterol Sulfate (Albuterol 2.5 Mg/3 Ml Vial.Neb.) 2.5 mg INHALATION Q2H PRN PRN PRN Reason: Shortness of Breath/Wheezing Dexamethasone (Dexamethasone 4 Mg Tablet) 6 mg PO DAILY [facility] Stop: 06/25/20 10:01 Last Admin: 06/22/20 09:21 Dose: 6 mg Documented by: Enoxaparin Sodium (Enoxaparin 80 Mg/0.8 Ml Syringe) 80 mg SC Q12 [facility] Last Admin: 06/22/20 09:22 Dose: 80 mg Documented by: Levothyroxine Sodium (Levothyroxine 112 Mcg Tablet) 112 mcg PO DAILY [facility] Last Admin: 06/22/20 09:21 Dose: 112 mcg Documented by: Ondansetron HCl (Ondansetron 4 Mg/2 Ml Vial) 4 mg IV Q8H PRN PRN PRN Reason: NAUSEA/VOMITING Psyllium Hydrophilic Mucilloid (Psyllium 1 Packet) 1 packet PO DAILY PRN PRN PRN Reason: Constipation Sodium Chloride (0.9% Saline Lock 10 Ml Syringe) 10 - 40 ml IV UD PRN PRN Reason: SALINE FLUSH Last Admin: 06/21/20 22:02 Dose: 10 ml Documented by: Medical Necessity - Tobacco Use Smoking Status: Former smoker Tobacco Use: Cigarettes Assessment/Plan All Active Problems Pneumonia due to COVID-19 virus (Acute) Hypoxia (Acute) History of coronary artery bypass graft (Acute) RECOMMENDATIONS: 1. Continue Decadron and therapeutic Lovenox as ordered. 2. Wean FiO2 to maintain oxygen saturations at or above 90%. 3. Encourage incentive spirometer use and mobilize patient as tolerated. IMPRESSIONS: 1. Acute hypoxic respiratory failure secondary to COVID-19 pneumonia Continue current supportive measures including supplemental oxygen to maintain saturations at or above 90%. The patient has already received convalescent plasma and completed a treatment course of remdesivir. The patient will be continued on Decadron and Lovenox therapy as ordered. Encourage incentive spirometer use and mobilize patient as tolerated. 2. Coronary artery disease status post CABG/advanced age/history of smoking/hypothyroidism Complicates care, management, recovery and prognosis. Continue home medications as indicated. This note was generated with [employer] dictation software. It may contain incorrect words, spelling, and punctuation that were not noted in checking the note before signing. Inpatient E&M: 41213 Subs Hosp L2
[2020-06-23] VITALS (11 sets, daily range): BP systolic 100–130; BP diastolic 65–86; PULSE 64–78; RESP 18–20; TEMP 36.4–36.6; O2SAT 92–96
--- NOTE | 2020-06-23 07:46 | PCM.PROGNOTE ---
Patient Problems: Active and Suspected Problems Pneumonia due to COVID-19 virus (Acute) Hypoxia (Acute) History of coronary artery bypass graft (Acute) Subjective: Patient was seen and examined today, he is currently on 7 L of oxygen, he does not complain of any fevers chills or chest pain. He is currently on dexamethasone for his COVID-19 pneumonia. Objective: General: Alert, Oriented x3, Cooperative, No apparent distress, Well developed, Well nourished HEENT: Atraumatic, PERRLA, EOMI, Normocephalic Oral: Moist Mucosa Neck: Supple, No JVD, Trachea Midline, Thyroid Normal Size and Texture Lungs: Inspiratory rales were noted to the patient's left lower lung field, right lung field is clear, there are no rhonchi or wheezes today Cardiovascular: Regular rate, Regular Rhythm, Normal S1, Normal S2, No murmurs, PMI Normal, No rub noted, No Gallop Abdomen: Bowel Sounds Present, Soft, Non Tender, Non-Distended Extremities: No clubbing, No cyanosis, No edema, Capillary Refill Less than 3 Seconds Skin: No rashes, No breakdown Musculoskeletal: No Tenderness to Palpation of Joints or Extremities Neurological: Cranial nerves II-XII grossly intact, Neuro grossly intact, Sensory exam intact to light touch and pain Psych/Mental Status: Normal Affect, Appropriate, Alert and oriented to time, place, person, mood and affect - Physical Exam Vitals/I&O's: Vital Signs Temp Pulse Resp BP Pulse Ox 97.5 F L 76 20 H 100/67 96 06/23/20 02:44 06/23/20 07:00 06/23/20 02:44 06/23/20 02:44 06/23/20 02:44 Oxygen Flow Rate (L/min) 7 Oxygen Delivery Method Nasal Cannula Weight: 78.3 kg Body Mass Index (BMI) 24.0 Intake and Output for Last 24 Hours 06/21/20 06/22/20 06/23/20 23:59 23:59 23:59 Intake Total 420 / 420 580 / 830 250 / 250 Output Total 875 / 875 800 / 1150 350 / 350 Balance -455 / -455 -220 / -320 -100 / -100 Microbiology Past 72 Hours 06/16/20 08:34 Blood Culture (Wb) - Left Hand Blood Culture - Final No growth in 5 days. 06/16/20 08:21 Blood Culture (Wb) - Anticubital Left Blood Culture - Final No growth in 5 days. Current Medications Acetaminophen (Acetaminophen 325 Mg Tablet) 650 mg PO Q6H PRN PRN PRN Reason: Pain Score 1-10/Temp > 100.7 F Last Admin: 06/17/20 12:53 Dose: 650 mg Documented by: Al Hydroxide/Mg Hydroxide (Mag Hydrox/Al Hydrox/Simeth 30 Ml Udc) 30 ml PO Q6H PRN PRN PRN Reason: Gastric Burning Albuterol Sulfate (Albuterol 2.5 Mg/3 Ml Vial.Neb.) 2.5 mg INHALATION Q2H PRN PRN PRN Reason: Shortness of Breath/Wheezing Dexamethasone (Dexamethasone 4 Mg Tablet) 6 mg PO DAILY [facility] Stop: 06/25/20 10:01 Last Admin: 06/22/20 09:21 Dose: 6 mg Documented by: Enoxaparin Sodium (Enoxaparin 80 Mg/0.8 Ml Syringe) 80 mg SC Q12 [facility] Last Admin: 06/22/20 21:15 Dose: 80 mg Documented by: Levothyroxine Sodium (Levothyroxine 112 Mcg Tablet) 112 mcg PO DAILY [facility] Last Admin: 06/22/20 09:21 Dose: 112 mcg Documented by: Ondansetron HCl (Ondansetron 4 Mg/2 Ml Vial) 4 mg IV Q8H PRN PRN PRN Reason: NAUSEA/VOMITING Psyllium Hydrophilic Mucilloid (Psyllium 1 Packet) 1 packet PO DAILY PRN PRN PRN Reason: Constipation Sodium Chloride (0.9% Saline Lock 10 Ml Syringe) 10 - 40 ml IV UD PRN PRN Reason: SALINE FLUSH Last Admin: 06/21/20 22:02 Dose: 10 ml Documented by: Medical Necessity - Tobacco Use Smoking Status: Former smoker Tobacco Use: Cigarettes Assessment/Plan All Active Problems Pneumonia due to COVID-19 virus (Acute) Hypoxia (Acute) History of coronary artery bypass graft (Acute) #1 COVID-19 pneumonia-infectious diseases and pulmonary medicine are participating in his care, his overall medical condition shows a slight improvement today he is on less oxygen at this time. Patient has been on full dose Lovenox-he had an elevated D-dimer but I do not feel the patient needs full anticoagulation at this time, I will decrease the patient's Lovenox to 40 mg subcu twice daily. #2 acute hypoxic respiratory failure secondary to #1, patient has now on oxygen at 7 L/min which is an improvement. #3 coronary artery disease #4 hypothyroidism Inpatient E&M: 36101 Subs Hosp L2
[2020-06-23] MEDS: Levothyroxine 112 MCG Tablet PO (09:47)
[2020-06-23] MEDS: Enoxaparin 40 MG/0.4 ML Syringe SC ×2 (09:47→20:24)
[2020-06-23] MEDS: dexAMETHasone 4 MG Tablet 6 MG PO (09:47)
--- NOTE | 2020-06-23 11:27 | PCM.PN.PUL ---
Patient Problems: Active and Suspected Problems Pneumonia due to COVID-19 virus (Acute) Hypoxia (Acute) History of coronary artery bypass graft (Acute) Subjective: The patient was seen and examined at the bedside this morning. Events from the last 24 hours have been reviewed. The patient is currently afebrile, hemodynamically stable and maintaining appropriate oxygen saturations on 7 L/min via nasal cannula. The patient has already received convalescent plasma and completed a treatment course of remdesivir. He remains on therapeutic Lovenox and Decadron. Oxygenation status continues to improve slowly each day. Objective: The patient's most recent lab work, culture data and imaging studies have all been personally reviewed. Coronavirus PCR was positive on June 16. Blood cultures have shown no growth to date. - Physical Exam Vitals/I&O's: Vital Signs Temp Pulse Resp BP Pulse Ox 97.7 F L 75 18 130/86 H 92 06/23/20 09:02 06/23/20 09:02 06/23/20 09:02 06/23/20 09:02 06/23/20 09:02 Oxygen Flow Rate (L/min) 7 Oxygen Delivery Method Nasal Cannula Weight: 172 lb 9.951 oz Body Mass Index (BMI) 24.0 Intake and Output for Last 24 Hours 06/21/20 06/22/20 06/23/20 23:59 23:59 23:59 Intake Total 420 / 420 580 / 830 730 / 730 Output Total 875 / 875 800 / 1150 350 / 350 Balance -455 / -455 -220 / -320 380 / 380 General: Alert, Cooperative, No apparent distress HEENT: Atraumatic, PERRLA, Normocephalic Oral: No Gingival or Mucosal Lesions/ Ulcerations Neck: Supple, No Nodes, Trachea Midline Lungs: Diminished Cardiovascular: Regular rate, Regular Rhythm Abdomen: Bowel Sounds Present, Soft, Non Tender Extremities: No clubbing, No cyanosis, No edema Skin: No breakdown Musculoskeletal: No Tenderness to Palpation of Joints or Extremities Lymphatic: No Cervical, Supraclavicular, or Inguinal Adenopathy Neurological: Cranial nerves II-XII grossly intact, Neuro grossly intact Psych/Mental Status: Normal Affect, Appropriate Microbiology 06/16/20 08:34 Blood Culture (Wb) - Left Hand Blood Culture - Final No growth in 5 days. 06/16/20 08:21 Blood Culture (Wb) - Anticubital Left Blood Culture - Final No growth in 5 days. Clinical Impression(s) from Imaging Studies Chest X-Ray 06/16/20 09:20 IMPRESSION: Since prior study, there has been progressive bilateral perihilar infiltrates worse on the right side. Electronically Signed: Mat Elizalde, at 9:51 EST , Service support , Current Medications Acetaminophen (Acetaminophen 325 Mg Tablet) 650 mg PO Q6H PRN PRN PRN Reason: Pain Score 1-10/Temp > 100.7 F Last Admin: 06/17/20 12:53 Dose: 650 mg Documented by: Al Hydroxide/Mg Hydroxide (Mag Hydrox/Al Hydrox/Simeth 30 Ml Udc) 30 ml PO Q6H PRN PRN PRN Reason: Gastric Burning Albuterol Sulfate (Albuterol 2.5 Mg/3 Ml Vial.Neb.) 2.5 mg INHALATION Q2H PRN PRN PRN Reason: Shortness of Breath/Wheezing Dexamethasone (Dexamethasone 4 Mg Tablet) 6 mg PO DAILY [facility] Stop: 06/25/20 10:01 Last Admin: 06/23/20 09:47 Dose: 6 mg Documented by: Enoxaparin Sodium (Enoxaparin 40 Mg/0.4 Ml Syringe) 40 mg SC Q12 [facility] Last Admin: 06/23/20 09:47 Dose: 40 mg Documented by: Levothyroxine Sodium (Levothyroxine 112 Mcg Tablet) 112 mcg PO DAILY [facility] Last Admin: 06/23/20 09:47 Dose: 112 mcg Documented by: Ondansetron HCl (Ondansetron 4 Mg/2 Ml Vial) 4 mg IV Q8H PRN PRN PRN Reason: NAUSEA/VOMITING Psyllium Hydrophilic Mucilloid (Psyllium 1 Packet) 1 packet PO DAILY PRN PRN PRN Reason: Constipation Sodium Chloride (0.9% Saline Lock 10 Ml Syringe) 10 - 40 ml IV UD PRN PRN Reason: SALINE FLUSH Last Admin: 06/21/20 22:02 Dose: 10 ml Documented by: Medical Necessity - Tobacco Use Smoking Status: Former smoker Tobacco Use: Cigarettes Assessment/Plan All Active Problems Pneumonia due to COVID-19 virus (Acute) Hypoxia (Acute) History of coronary artery bypass graft (Acute) RECOMMENDATIONS: 1. Continue Decadron and Lovenox as ordered. 2. Wean FiO2 to maintain oxygen saturations at or above 90%. 3. Encourage incentive spirometer use and mobilize patient as tolerated. IMPRESSIONS: 1. Acute hypoxic respiratory failure secondary to COVID-19 pneumonia Continue current supportive measures including supplemental oxygen to maintain saturations at or above 90%. The patient has already received convalescent plasma and completed a treatment course of remdesivir. The patient will be continued on Decadron and Lovenox therapy as ordered. Encourage incentive spirometer use and mobilize patient as tolerated. 2. Coronary artery disease status post CABG/advanced age/history of smoking/hypothyroidism Complicates care, management, recovery and prognosis. Continue home medications as indicated. This note was generated with [employer] dictation software. It may contain incorrect words, spelling, and punctuation that were not noted in checking the note before signing. Inpatient E&M: 53315 Subs Hosp L2
[2020-06-23 16:15] LABS: Anion Gap 6 (5-15); BUN 33 mg/dL (7-18); BUN/Creat Ratio 33.8 RATIO (10-20); Calcium,Total 8.9 mg/dL (8.5-10.1); Chloride 101 mmol/L (98-107); Creatinine, Serum 0.98 mg/dL (0.70-1.30); EST Glomerular Filtration Rate 81 mL/min (>60); Est Glom Filt Rate - Afr Amer 98 mL/min (>60); Estimated Creatinine Clearance 76.84 ml/min; Glucose 202 mg/dL (74-106); Potassium 4.6 mmol/L (3.5-5.1); Sodium Level 132 mmol/L (136-145)
[2020-06-24] VITALS (11 sets, daily range): BP systolic 93–124; BP diastolic 61–72; PULSE 62–76; RESP 16–20; TEMP 36.5–36.6; O2SAT 92–96
[2020-06-24] MEDS: dexAMETHasone 4 MG Tablet 6 MG PO (08:37)
[2020-06-24] MEDS: Enoxaparin 40 MG/0.4 ML Syringe SC ×2 (08:37→21:34)
[2020-06-24] MEDS: Levothyroxine 112 MCG Tablet PO (08:37)
--- NOTE | 2020-06-24 09:17 | PCM.PROGNOTE ---
Patient Problems: Active and Suspected Problems Pneumonia due to COVID-19 virus (Acute) Hypoxia (Acute) History of coronary artery bypass graft (Acute) Subjective: Patient was seen and examined today, he appears comfortable at rest, he does not complain of any shortness of breath chest pain or chills. Patient is currently on 5 L of oxygen. Objective: Objective: General: Alert, Oriented x3, Cooperative, No apparent distress, Well developed, Well nourished HEENT: Atraumatic, PERRLA, EOMI, Normocephalic Oral: Moist Mucosa Neck: Supple, No JVD, Trachea Midline, Thyroid Normal Size and Texture Lungs: Inspiratory rales were noted to the patient's left lower lung field, right lung field is clear, there are no rhonchi or wheezes today Cardiovascular: Regular rate, Regular Rhythm, Normal S1, Normal S2, No murmurs, PMI Normal, No rub noted, No Gallop Abdomen: Bowel Sounds Present, Soft, Non Tender, Non-Distended Extremities: No clubbing, No cyanosis, No edema, Capillary Refill Less than 3 Seconds Skin: No rashes, No breakdown Musculoskeletal: No Tenderness to Palpation of Joints or Extremities Neurological: Cranial nerves II-XII grossly intact, Neuro grossly intact, Sensory exam intact to light touch and pain Psych/Mental Status: Normal Affect, Appropriate, Alert and oriented to time, place, person, mood and affect - Physical Exam Vitals/I&O's: Vital Signs Temp Pulse Resp BP Pulse Ox 97.7 F L 62 18 100/61 96 06/24/20 08:35 06/24/20 08:35 06/24/20 08:35 06/24/20 08:35 06/24/20 08:35 Oxygen Flow Rate (L/min) 5 Oxygen Delivery Method Nasal Cannula Weight: 78 kg Body Mass Index (BMI) 24.0 Intake and Output for Last 24 Hours 06/22/20 06/23/20 06/24/20 23:59 23:59 23:59 Intake Total 580 / 830 1330 / 1570 240 / 240 Output Total 800 / 1150 1300 / 1575 850 / 850 Balance -220 / -320 30 / -5 -610 / -610 Microbiology Past 72 Hours 06/16/20 08:34 Blood Culture (Wb) - Left Hand Blood Culture - Final No growth in 5 days. 06/16/20 08:21 Blood Culture (Wb) - Anticubital Left Blood Culture - Final No growth in 5 days. Laboratory Results 06/23/20 15:40: Sodium 132 L, Potassium 4.6, Chloride 101, Carbon Dioxide 25.0, Anion Gap 6, BUN 33 H, Creatinine 0.98, Estim Creat Clear Calc 76.84, Est GFR (MDRD) Af Amer 98, Est GFR (MDRD) Non-Af 81, BUN/Creatinine Ratio 33.8 H, Glucose 202 H, Calcium 8.9 Current Medications Acetaminophen (Acetaminophen 325 Mg Tablet) 650 mg PO Q6H PRN PRN PRN Reason: Pain Score 1-10/Temp > 100.7 F Last Admin: 06/17/20 12:53 Dose: 650 mg Documented by: Al Hydroxide/Mg Hydroxide (Mag Hydrox/Al Hydrox/Simeth 30 Ml Udc) 30 ml PO Q6H PRN PRN PRN Reason: Gastric Burning Albuterol Sulfate (Albuterol 2.5 Mg/3 Ml Vial.Neb.) 2.5 mg INHALATION Q2H PRN PRN PRN Reason: Shortness of Breath/Wheezing Dexamethasone (Dexamethasone 4 Mg Tablet) 6 mg PO DAILY [facility] Stop: 06/25/20 10:01 Last Admin: 06/24/20 08:37 Dose: 6 mg Documented by: Enoxaparin Sodium (Enoxaparin 40 Mg/0.4 Ml Syringe) 40 mg SC Q12 [facility] Last Admin: 06/24/20 08:37 Dose: 40 mg Documented by: Levothyroxine Sodium (Levothyroxine 112 Mcg Tablet) 112 mcg PO DAILY [facility] Last Admin: 06/24/20 08:37 Dose: 112 mcg Documented by: Ondansetron HCl (Ondansetron 4 Mg/2 Ml Vial) 4 mg IV Q8H PRN PRN PRN Reason: NAUSEA/VOMITING Psyllium Hydrophilic Mucilloid (Psyllium 1 Packet) 1 packet PO DAILY PRN PRN PRN Reason: Constipation Sodium Chloride (0.9% Saline Lock 10 Ml Syringe) 10 - 40 ml IV UD PRN PRN Reason: SALINE FLUSH Last Admin: 06/21/20 22:02 Dose: 10 ml Documented by: Medical Necessity - Tobacco Use Smoking Status: Former smoker Tobacco Use: Cigarettes Assessment/Plan All Active Problems Pneumonia due to COVID-19 virus (Acute) Hypoxia (Acute) History of coronary artery bypass graft (Acute) #1 COVID-19 pneumonia-infectious diseases and pulmonary medicine are participating in his care, his overall medical condition shows a slight improvement today he is on less oxygen at this time. #2 acute hypoxic respiratory failure secondary to #1, patient has now on oxygen at 5 L/min which is an improvement. We will have the nursing staff ambulate him on 5 L to see if his saturation drops. #3 coronary artery disease #4 hypothyroidism Inpatient E&M: 31283 Subs Hosp L2
[2020-06-25] VITALS (10 sets, daily range): BP systolic 101–116; BP diastolic 57–70; PULSE 63–99; RESP 16–18; TEMP 36.3–36.6; O2SAT 93–96
[2020-06-25 06:54] LABS: Absolute Lymphocyte Count 0.57 X10^3/uL (0.83-4.51); Absolute Neutrophil Count 12.5 X10^3/uL (2.0-7.7); Basophil# 0.02 X10^3/uL; Basophil% 0.1 % (0-1); Eosinophil# 0.06 X10^3/uL; Eosinophils% 0.4 % (0-5); Hematocrit 45.4 % (40-54); Hemoglobin 15.1 g/dL (13.0-16.5); Lymphocyte # 0.57 X10^3/ul (4.0); Lymphocyte % 4.1 % (19-41); Mean Corp Hgb Conc 33.3 g/dL (32-36); Mean Corpuscular Hgb 30.3 pg (27.0-32.0); Mean Corpuscular Volume 91.2 fL (80-94); Mean Platelet Vol. 10.5 fl (6.2-12.0); Monocyte# 0.43 X10^3/uL; Monocyte% 3.1 % (0-10); NRBC Flagged by Analyzer 0 % (0-5); Neutrophil % 91.1 % (47-70); POSITIVE DIFFERENTIAL YES; Platelet Count 406 K/mm3 (150-450); RBC Distribution Width CV 12.9 % (11.6-14.6); RBC Distribution Width SD 42.2 fl (35.1-43.9); Red Blood Count 4.98 M/mm3 (4.6-6.2); White Blood Count 13.7 K/mm3 (4.4-11.0)
[2020-06-25 07:23] LABS: Differential Indicated SCAN CRITERIA MET
[2020-06-25 07:27] LABS: ALB/GLOB Ratio 0.6 RATIO (0.9-2.4); AST(SGOT) 21 U/L (15-37); Alanine Aminotransfer ALT/SGPT 79 U/L (16-61); Albumin, Serum 2.5 g/dL (3.2-5.0); Alkaline Phosphatase 109 U/L (45-117); Anion Gap 3 (5-15); BUN 31 mg/dL (7-18); BUN/Creat Ratio 31.6 RATIO (10-20); Calcium,Total 9.1 mg/dL (8.5-10.1); Chloride 102 mmol/L (98-107); Creatinine, Serum 0.98 mg/dL (0.70-1.30); EST Glomerular Filtration Rate 81 mL/min (>60); Est Glom Filt Rate - Afr Amer 98 mL/min (>60); Estimated Creatinine Clearance 76.84 ml/min; Globulin 4.1 g/dL (2.2-4.2); Glucose 108 mg/dL (74-106); Protein, Total 6.6 g/dL (6.4-8.2); Sodium Level 136 mmol/L (136-145)
[2020-06-25 08:32] LABS: Differential Comment SCANNED
--- NOTE | 2020-06-25 09:43 | PN_ITS ---
Patient Problems: Active and Suspected Problems Pneumonia due to COVID-19 virus (Acute) Hypoxia (Acute) History of coronary artery bypass graft (Acute) Subjective: The patient was seen and examined at the bedside this morning. Events from the last 24 hours have been reviewed. The patient is currently afebrile, hemodynamically stable and maintaining appropriate oxygen saturations on 3 L/min via nasal cannula. The patient has already received convalescent plasma and completed a treatment course of remdesivir. He remains on Lovenox and Decadron. Objective: The patient's most recent lab work, culture data and imaging studies have all been personally reviewed. Coronavirus PCR was positive on June 16. Blood cultures have shown no growth to date. - Physical Exam Vitals/I&O's: Vital Signs Temp Pulse Resp BP Pulse Ox 97.3 F L 70 18 101/70 93 06/25/20 05:45 06/25/20 07:33 06/25/20 05:45 06/25/20 05:45 06/25/20 07:59 Oxygen Flow Rate (L/min) 3.5 Oxygen Delivery Method Nasal Cannula Weight: 172 lb 2.896 oz Body Mass Index (BMI) 24.0 Intake and Output for Last 24 Hours 06/23/20 06/24/20 06/25/20 23:59 23:59 23:59 Intake Total 1330 / 1570 1080 / 1080 Output Total 1300 / 1575 1175 / 1175 500 / 500 Balance 30 / -5 -95 / -95 -500 / -500 General: Alert, Cooperative, No apparent distress HEENT: Atraumatic, Normocephalic Oral: No Gingival or Mucosal Lesions/ Ulcerations Neck: Supple, No Nodes, Trachea Midline Lungs: No rhonchi, No wheeze, No rales, Diminished Cardiovascular: Regular rate, Regular Rhythm Abdomen: Bowel Sounds Present, Soft, Non Tender Extremities: No clubbing, No cyanosis, No edema Skin: No breakdown Musculoskeletal: No Tenderness to Palpation of Joints or Extremities Lymphatic: No Cervical, Supraclavicular, or Inguinal Adenopathy Neurological: Cranial nerves II-XII grossly intact, Neuro grossly intact Psych/Mental Status: Alert and oriented to time, place, person, mood and affect Labs (Last 48 Hours) 06/23/20 06/25/20 06/25/20 15:40 05:30 05:30 WBC 13.7 H RBC 4.98 Hgb 15.1 Hct 45.4 MCV 91.2 MCH 30.3 MCHC 33.3 RDW Std Deviation 42.2 RDW Coeff of Jennie 12.9 Plt Count 406 MPV 10.5 Immature Gran % (Auto) 1.200 H Neut % (Auto) 91.1 H Lymph % (Auto) 4.1 L [place] % (Auto) 3.1 Eos % (Auto) 0.4 Baso % (Auto) 0.1 Absolute Neuts (auto) 12.5 H Absolute Lymphs (auto) 0.57 L Nucleated RBC % 0 Differential Comment SCANNED Sodium 132 L 136 Potassium 4.6 5.0 Chloride 101 102 Carbon Dioxide 25.0 31.0 Anion Gap 6 3 L BUN 33 H 31 H Creatinine 0.98 0.98 Estim Creat Clear Calc 76.84 76.84 Est GFR (MDRD) Af Amer 98 98 Est GFR (MDRD) Non-Af 81 81 BUN/Creatinine Ratio 33.8 H 31.6 H Glucose 202 H 108 H Calcium 8.9 9.1 Total Bilirubin 0.80 AST 21 ALT 79 H Alkaline Phosphatase 109 Total Protein 6.6 Albumin 2.5 L Globulin 4.1 Albumin/Globulin Ratio 0.6 L Clinical Impression(s) from Imaging Studies Chest X-Ray 06/16/20 09:20 IMPRESSION: Since prior study, there has been progressive bilateral perihilar infiltrates worse on the right side. Electronically Signed: Mat Elizalde, at 9:51 EST , Service support , Current Medications Acetaminophen (Acetaminophen 325 Mg Tablet) 650 mg PO Q6H PRN PRN PRN Reason: Pain Score 1-10/Temp > 100.7 F Last Admin: 06/17/20 12:53 Dose: 650 mg Documented by: Al Hydroxide/Mg Hydroxide (Mag Hydrox/Al Hydrox/Simeth 30 Ml Udc) 30 ml PO Q6H PRN PRN PRN Reason: Gastric Burning Albuterol Sulfate (Albuterol 2.5 Mg/3 Ml Vial.Neb.) 2.5 mg INHALATION Q2H PRN PRN PRN Reason: Shortness of Breath/Wheezing Dexamethasone (Dexamethasone 4 Mg Tablet) 6 mg PO DAILY [facility] Stop: 06/25/20 10:01 Last Admin: 06/24/20 08:37 Dose: 6 mg Documented by: Enoxaparin Sodium (Enoxaparin 40 Mg/0.4 Ml Syringe) 40 mg SC Q12 [facility] Last Admin: 06/24/20 21:34 Dose: 40 mg Documented by: Levothyroxine Sodium (Levothyroxine 112 Mcg Tablet) 112 mcg PO DAILY [facility] Last Admin: 06/24/20 08:37 Dose: 112 mcg Documented by: Ondansetron HCl (Ondansetron 4 Mg/2 Ml Vial) 4 mg IV Q8H PRN PRN PRN Reason: NAUSEA/VOMITING Psyllium Hydrophilic Mucilloid (Psyllium 1 Packet) 1 packet PO DAILY PRN PRN PRN Reason: Constipation Sodium Chloride (0.9% Saline Lock 10 Ml Syringe) 10 - 40 ml IV UD PRN PRN Reason: SALINE FLUSH Last Admin: 06/21/20 22:02 Dose: 10 ml Documented by: Medical Necessity - Tobacco Use Smoking Status: Former smoker Tobacco Use: Cigarettes Assessment/Plan All Active Problems Pneumonia due to COVID-19 virus (Acute) Hypoxia (Acute) History of coronary artery bypass graft (Acute) RECOMMENDATIONS: 1. Continue Decadron and Lovenox as ordered. 2. Continue to wean supplemental oxygen to maintain saturations at or above 90%. 3. Encourage incentive spirometer use and mobilize patient as tolerated. 4. The patient can be discharged home from my perspective with supplemental oxygen and Decadron to complete 10-day treatment course. 5. Will sign off from a pulmonary perspective. IMPRESSIONS: 1. Acute hypoxic respiratory failure secondary to COVID-19 pneumonia Continue current supportive measures including supplemental oxygen to maintain saturations at or above 90%. The patient has already received convalescent plasma and completed a treatment course of remdesivir. The patient will be continued on Decadron and Lovenox therapy as ordered. Encourage incentive spirometer use and mobilize patient as tolerated. 2. Coronary artery disease status post CABG/advanced age/history of smoking/hypothyroidism Complicates care, management, recovery and prognosis. Continue home medications as indicated. This note was generated with [employer] software. It may contain incorrect words, spelling, and punctuation that were not noted in checking the note before signing. Inpatient E&M: 03541 Subs Hosp L2
[2020-06-25] MEDS: dexAMETHasone 4 MG Tablet 6 MG PO (10:36)
[2020-06-25] MEDS: Levothyroxine 112 MCG Tablet PO (10:36)
[2020-06-25] MEDS: Enoxaparin 40 MG/0.4 ML Syringe SC ×2 (10:37→21:26)
--- NOTE | 2020-06-25 15:02 | PCM.PROGNOTE ---
Patient Problems: Active and Suspected Problems Pneumonia due to COVID-19 virus (Acute) Hypoxia (Acute) History of coronary artery bypass graft (Acute) Subjective: Patient was seen and examined today, he voices no complaints of any shortness of breath, he appears comfortable at rest this morning. Patient is on 3.5 L nasal cannula O2 at this time. Objective: General: Alert, Oriented x3, Cooperative, No apparent distress, Well developed, Well nourished HEENT: Atraumatic, PERRLA, EOMI, Normocephalic Oral: Moist Mucosa Neck: Supple, No JVD, Trachea Midline, Thyroid Normal Size and Texture Lungs: Inspiratory rales were noted to the patient's left lower lung field, right lung field is clear, there are no rhonchi or wheezes today Cardiovascular: Regular rate, Regular Rhythm, Normal S1, Normal S2, No murmurs, PMI Normal, No rub noted, No Gallop Abdomen: Bowel Sounds Present, Soft, Non Tender, Non-Distended Extremities: No clubbing, No cyanosis, No edema, Capillary Refill Less than 3 Seconds Skin: No rashes, No breakdown Musculoskeletal: No Tenderness to Palpation of Joints or Extremities Neurological: Cranial nerves II-XII grossly intact, Neuro grossly intact, Sensory exam intact to light touch and pain Psych/Mental Status: Normal Affect, Appropriate, Alert and oriented to time, place, person, mood and affect - Physical Exam Vitals/I&O's: Vital Signs Temp Pulse Resp BP Pulse Ox 97.8 F 99 16 103/61 95 06/25/20 10:29 06/25/20 11:49 06/25/20 10:29 06/25/20 10:29 06/25/20 10:29 Oxygen Flow Rate (L/min) 3.5 Oxygen Delivery Method Nasal Cannula Weight: 78.1 kg Body Mass Index (BMI) 24.0 Intake and Output for Last 24 Hours 06/23/20 06/24/20 06/25/20 23:59 23:59 23:59 Intake Total 1330 / 1570 1080 / 1080 Output Total 1300 / 1575 1175 / 1175 500 / 500 Balance 30 / -5 -95 / -95 -500 / -500 Laboratory Results 06/25/20 05:30: WBC 13.7 H, RBC 4.98, Hgb 15.1, Hct 45.4, MCV 91.2, MCH 30.3, MCHC 33.3, RDW Std Deviation 42.2, RDW Coeff of Jennie 12.9, Plt Count 406, MPV 10.5, Immature Gran % (Auto) 1.200 H, Neut % (Auto) 91.1 H, Lymph % (Auto) 4.1 L, [place] % (Auto) 3.1, Eos % (Auto) 0.4, Baso % (Auto) 0.1, Absolute Neuts (auto) 12.5 H, Absolute Lymphs (auto) 0.57 L, Nucleated RBC % 0, Differential Comment SCANNED 06/25/20 05:30: Sodium 136, Potassium 5.0, Chloride 102, Carbon Dioxide 31.0, Anion Gap 3 L, BUN 31 H, Creatinine 0.98, Estim Creat Clear Calc 76.84, Est GFR (MDRD) Af Amer 98, Est GFR (MDRD) Non-Af 81, BUN/Creatinine Ratio 31.6 H, Glucose 108 H, Calcium 9.1, Total Bilirubin 0.80, AST 21, ALT 79 H, Alkaline Phosphatase 109, Total Protein 6.6, Albumin 2.5 L, Globulin 4.1, Albumin/Globulin Ratio 0.6 L Current Medications Acetaminophen (Acetaminophen 325 Mg Tablet) 650 mg PO Q6H PRN PRN PRN Reason: Pain Score 1-10/Temp > 100.7 F Last Admin: 06/17/20 12:53 Dose: 650 mg Documented by: Al Hydroxide/Mg Hydroxide (Mag Hydrox/Al Hydrox/Simeth 30 Ml Udc) 30 ml PO Q6H PRN PRN PRN Reason: Gastric Burning Albuterol Sulfate (Albuterol 2.5 Mg/3 Ml Vial.Neb.) 2.5 mg INHALATION Q2H PRN PRN PRN Reason: Shortness of Breath/Wheezing Enoxaparin Sodium (Enoxaparin 40 Mg/0.4 Ml Syringe) 40 mg SC Q12 [facility] Last Admin: 06/25/20 10:37 Dose: 40 mg Documented by: Levothyroxine Sodium (Levothyroxine 112 Mcg Tablet) 112 mcg PO DAILY [facility] Last Admin: 06/25/20 10:36 Dose: 112 mcg Documented by: Ondansetron HCl (Ondansetron 4 Mg/2 Ml Vial) 4 mg IV Q8H PRN PRN PRN Reason: NAUSEA/VOMITING Psyllium Hydrophilic Mucilloid (Psyllium 1 Packet) 1 packet PO DAILY PRN PRN PRN Reason: Constipation Sodium Chloride (0.9% Saline Lock 10 Ml Syringe) 10 - 40 ml IV UD PRN PRN Reason: SALINE FLUSH Last Admin: 06/21/20 22:02 Dose: 10 ml Documented by: Medical Necessity - Tobacco Use Smoking Status: Former smoker Tobacco Use: Cigarettes Assessment/Plan All Active Problems Pneumonia due to COVID-19 virus (Acute) Hypoxia (Acute) History of coronary artery bypass graft (Acute) #1 COVID-19 pneumonia-infectious diseases and pulmonary medicine are participating in his care, his overall medical condition shows a slight improvement today he is on less oxygen at this time. #2 acute hypoxic respiratory failure secondary to #1, patient has now on oxygen at 3.5 L/min which is an improvement. We will have the nursing staff ambulate him on 3.5 L to see if his oxygen drops, I suspect he might be able to be discharged home on 06/26/2020 with home oxygen. #3 coronary artery disease #4 hypothyroidism Inpatient E&M: 39654 Subs Hosp L2
[2020-06-26] VITALS (8 sets, daily range): BP systolic 94–112; BP diastolic 58–72; PULSE 72–90; RESP 16–18; TEMP 36.4–36.8; O2SAT 86–95
[2020-06-26 06:01] LABS: Absolute Lymphocyte Count 0.47 X10^3/uL (0.83-4.51); Absolute Neutrophil Count 11.1 X10^3/uL (2.0-7.7); Basophil# 0.02 X10^3/uL; Basophil% 0.2 % (0-1); Eosinophil# 0.01 X10^3/uL; Eosinophils% 0.1 % (0-5); Hematocrit 43.6 % (40-54); Hemoglobin 14.5 g/dL (13.0-16.5); Lymphocyte # 0.47 X10^3/ul (4.0); Lymphocyte % 3.9 % (19-41); Mean Corp Hgb Conc 33.3 g/dL (32-36); Mean Corpuscular Hgb 30.7 pg (27.0-32.0); Mean Corpuscular Volume 92.2 fL (80-94); Mean Platelet Vol. 10.3 fl (6.2-12.0); Monocyte# 0.34 X10^3/uL; Monocyte% 2.8 % (0-10); NRBC Flagged by Analyzer 0 % (0-5); Neutrophil # 11.11 X10^3/uL (2.7-7.7); Neutrophil % 91.9 % (47-70); POSITIVE DIFFERENTIAL YES; Platelet Count 375 K/mm3 (150-450); RBC Distribution Width SD 43.4 fl (35.1-43.9); Red Blood Count 4.73 M/mm3 (4.6-6.2); White Blood Count 12.1 K/mm3 (4.4-11.0)
[2020-06-26 06:29] LABS: ALB/GLOB Ratio 0.6 RATIO (0.9-2.4); AST(SGOT) 18 U/L (15-37); Alanine Aminotransfer ALT/SGPT 66 U/L (16-61); Albumin, Serum 2.4 g/dL (3.2-5.0); Alkaline Phosphatase 103 U/L (45-117); Anion Gap 4 (5-15); BUN 29 mg/dL (7-18); BUN/Creat Ratio 31.1 RATIO (10-20); Calcium,Total 8.9 mg/dL (8.5-10.1); Chloride 102 mmol/L (98-107); Creatinine, Serum 0.93 mg/dL (0.70-1.30); EST Glomerular Filtration Rate 86 mL/min (>60); Est Glom Filt Rate - Afr Amer 104 mL/min (>60); Estimated Creatinine Clearance 80.97 ml/min; Globulin 3.8 g/dL (2.2-4.2); Glucose 125 mg/dL (74-106); Potassium 4.7 mmol/L (3.5-5.1); Protein, Total 6.2 g/dL (6.4-8.2); Sodium Level 135 mmol/L (136-145)
[2020-06-26 06:41] LABS: Differential Indicated SCAN CRITERIA MET
[2020-06-26 06:42] LABS: Differential Comment SCANNED
[2020-06-26] MEDS: Enoxaparin 40 MG/0.4 ML Syringe SC (08:51)
[2020-06-26] MEDS: Levothyroxine 112 MCG Tablet PO (08:51)
--- NOTE | 2020-06-26 12:23 | DCINST_ITS ---
- Discharge Diagnoses Current Active Problems: Current Active and Chronic Problems CAD (coronary artery disease) (Chronic) Pneumonia due to COVID-19 virus (Acute) Hypoxia (Acute) Hypothyroidism (Chronic) History of coronary artery bypass graft (Acute) You will use the following diet at home:: No restrictions Your food should be the consistency of: Regular Your liquids should be the consistency of: Regular/Thin Discharge Activity: Return to Normal Activity Call your doctor if you observe: Fever of 101 or Higher, Shortness of breath Additional Instructions: You may clear quarantine through today, however your spouse, whom you inform he is also ill, may have Covid and she should quarantine for 14 days of her onset of symptoms. Wear oxygen when you are up and ambulating. Allergies/Adverse Reactions: Allergies Iodinated Contrast Media Allergy (Verified 06/16/20 16:21) Swelling Medications to take at Discharge Levothyroxine Sodium [Euthyrox] 112 mcg PO DAILY 06/14/20 Primary Care Physician: Jagjit Lopez NP, DENTAL ASSISTANT TEACHER-C [Primary Care Provider] - Within 2 Weeks Test Results: Test results from this visit will be discussed in further detail at your follow- up appointment, if applicable. Proposed Discharge Date: 06/26/20
--- NOTE | 2020-06-26 12:25 | PCM.DC.SUM ---
Discharge Date and Diagnosis - Problem List Patient Problems: Active and Suspected Problems Pneumonia due to COVID-19 virus (Acute) Hypoxia (Acute) History of coronary artery bypass graft (Acute) Date of Admission: 06/16/20 Date of Discharge: 06/26/20 - Primary Discharge Diagnosis Acute Problems: Active Problems Pneumonia due to COVID-19 virus (Acute) Hypoxia (Acute) History of coronary artery bypass graft (Acute) - Secondary Discharge Diagnosis Chronic Problems: Chronic Problems CAD (coronary artery disease) (Chronic) Hypothyroidism (Chronic) Hospital Course and Treatment Imaging Results: Clinical Impression(s) from Imaging Studies Chest X-Ray 06/16/20 09:20 IMPRESSION: Since prior study, there has been progressive bilateral perihilar infiltrates worse on the right side. Electronically Signed: Mat Fide, at 9:51 EST , Service support , Brown: KARL Rios: GALA Operations: None Procedures: None Summary of Care Provided: The patient is a 69 year old M presents with shortness of breath cough fever and headache for 8 days. Have been ongoing since June 08. Was given azithromycin and discharged home initially but progressively came worse. Patient was checked for COVID-19 and was positive. Patient in the hospital, received a course of dexamethasone, remdesivir and convalescent plasma. Patient was seen in consultation by infectious diseases well as a pulmonology. Overall patient has improved though he does require oxygen when he ambulates. Dropped down to 86% on room air but that is 92% at rest. Anticipate patient be able to be weaned off oxygen in the coming weeks. Patient is otherwise doing well. Patient can be removed out of isolation and quarantine after today as it be 10 days after his initial diagnosis which was on the . Patient notes that his is sick and I suspect that she patient is advised to inform her to quarantine from 14 days from the onset of her symptoms. Patient made aware of the possibility of secondary pneumonia and if he does have symptoms such as increasing shortness of breath and fever to notify his physician or come back into the emergency room. Patient is otherwise medically stable for discharge today. Patient will require oxygen 2 L/min with activity. [] Patient Problems: Active and Suspected Problems Pneumonia due to COVID-19 virus (Acute) Hypoxia (Acute) History of coronary artery bypass graft (Acute) - Physical Exam Vitals/I&O's: Vital Signs Temp Pulse Resp BP Pulse Ox 36.8 C 89 18 94/65 93 06/26/20 08:55 06/26/20 08:55 06/26/20 10:00 06/26/20 08:55 06/26/20 11:48 Oxygen Flow Rate (L/min) [ 2 AMBULATION with Oxygen] Oxygen Flow Rate (L/min) 2 Oxygen Delivery Method Nasal Cannula Weight: 78.4 kg Body Mass Index (BMI) 24.0 Intake and Output for Last 24 Hours 06/24/20 06/25/20 06/26/20 23:59 23:59 23:59 Intake Total 1080 / 1080 600 / 1100 800 / 800 Output Total 1175 / 1175 500 / 500 Balance -95 / -95 100 / 600 800 / 800 General: Alert, No apparent distress HEENT: Atraumatic, Normocephalic Oral: Moist Mucosa, No Gingival or Mucosal Lesions/ Ulcerations Neck: No Nodes, Thyroid Normal Size and Texture Lungs: Clear to auscultation, Normal air movement Psych/Mental Status: Normal Affect, Appropriate Laboratory Results 06/26/20 05:28: WBC 12.1 H, RBC 4.73, Hgb 14.5, Hct 43.6, MCV 92.2, MCH 30.7, MCHC 33.3, RDW Std Deviation 43.4, RDW Coeff of Jennie 13.0, Plt Count 375, MPV 10.3, Immature Gran % (Auto) 1.100 H, Neut % (Auto) 91.9 H, Lymph % (Auto) 3.9 L, [place] % (Auto) 2.8, Eos % (Auto) 0.1, Baso % (Auto) 0.2, Absolute Neuts (auto) 11.1 H, Absolute Lymphs (auto) 0.47 L, Nucleated RBC % 0, Differential Comment SCANNED 06/26/20 05:28: Sodium 135 L, Potassium 4.7, Chloride 102, Carbon Dioxide 29.0, Anion Gap 4 L, BUN 29 H, Creatinine 0.93, Estim Creat Clear Calc 80.97, Est GFR (MDRD) Af Amer 104, Est GFR (MDRD) Non-Af 86, BUN/Creatinine Ratio 31.1 H, Glucose 125 H, Calcium 8.9, Total Bilirubin 0.60, AST 18, ALT 66 H, Alkaline Phosphatase 103, Total Protein 6.2 L, Albumin 2.4 L, Globulin 3.8, Albumin/Globulin Ratio 0.6 L Current Medications Acetaminophen (Acetaminophen 325 Mg Tablet) 650 mg PO Q6H PRN PRN PRN Reason: Pain Score 1-10/Temp > 100.7 F Last Admin: 06/17/20 12:53 Dose: 650 mg Documented by: Al Hydroxide/Mg Hydroxide (Mag Hydrox/Al Hydrox/Simeth 30 Ml Udc) 30 ml PO Q6H PRN PRN PRN Reason: Gastric Burning Albuterol Sulfate (Albuterol 2.5 Mg/3 Ml Vial.Neb.) 2.5 mg INHALATION Q2H PRN PRN PRN Reason: Shortness of Breath/Wheezing Enoxaparin Sodium (Enoxaparin 40 Mg/0.4 Ml Syringe) 40 mg SC Q12 [facility] Last Admin: 06/26/20 08:51 Dose: 40 mg Documented by: Levothyroxine Sodium (Levothyroxine 112 Mcg Tablet) 112 mcg PO DAILY [facility] Last Admin: 06/26/20 08:51 Dose: 112 mcg Documented by: Ondansetron HCl (Ondansetron 4 Mg/2 Ml Vial) 4 mg IV Q8H PRN PRN PRN Reason: NAUSEA/VOMITING Psyllium Hydrophilic Mucilloid (Psyllium 1 Packet) 1 packet PO DAILY PRN PRN PRN Reason: Constipation Sodium Chloride (0.9% Saline Lock 10 Ml Syringe) 10 - 40 ml IV UD PRN PRN Reason: SALINE FLUSH Last Admin: 06/21/20 22:02 Dose: 10 ml Documented by: Discharge Diet: No Restrictions Discharge Activity: Return to Normal Activity Call your doctor if you observe: Fever of 101 or Higher, Shortness of breath Home Medications: Medications to take at Discharge Levothyroxine Sodium [Euthyrox] 112 mcg PO DAILY 06/14/20 Primary Care Physician: Jagjit Lopez COLLECTION CORRESPONDENT, COLLECTION CORRESPONDENT-C [Primary Care Provider] - Within 2 Weeks Disposition: Home Minutes spent on discharge:: 35 Patient Condition:: Good Medical Necessity - Tobacco Use Smoking Status: Former smoker Tobacco Use: Cigarettes Meaningful Use Info Meaningful Use Diagnoses (Choose all that apply): None applicable Inpatient E&M: 43131 Disch Hosp
--- NOTE | 2020-06-26 14:05 | CASEMGMT ---
RYDER CM Note: f/u appointment made with [facility]ANO PROFESSOR for Friday, Jul @ 11:20. Roxi MARSHALL RN ACM
--- NOTE | 2020-06-26 15:56 | CASEMGMT ---
RYDER CM Note: Pt updated re: home oxygen. The patient states his family already has a pulse oximeter at home to monitor his oxygen. Roxi MARSHALL RN ACM
--- NOTE | 2020-06-27 08:35 | CASEMGMT ---
RYDER CM Note: DC Summary faxed to [facility]. Roxi MARSHALL RN ACM
--- NOTE | 2020-06-27 14:05 | CASEMGMT ---
RYDER MCKOY DC PHONE CALL DC DATE: 06.26.2020 DC DISPOSITION: Home with new oxygen set up DC DIAGNOSIS: COVIDF-19 LACE/STRATA: 12/ F/U APPTS MADE PRIOR TO DC: yes PRESCRIPTIONS ACQUIRED BY PT: yes Intro role of CM to patient via phone. Pt could not find her dc instruction paper and CM asked her to look with her belongings from the hospital. DC instructions reviewed with her. She picked up her prescription and medications including inhalers were reviewed with her. Patient's daughter is bringing a pulse oximeter to the home today. Reviewed oxygen levels of >90% needed. Reviewed that patient's oxygen level was 94% at rest, but dropped when ambulating, so be sure to wear oxygen with activity. -Reviewed virtual appointment for tomorrow. Office will call ahead of time. Pt states she would rather do telephone visit and RYDER MCKOY let her know to tell office staff when she calls. -Pt appreciated the call as she had questions answered. No further questions and no care improvement suggestions. Roxi MCKNIGHTN RN ACM
--- NOTE | 2020-06-27 14:19 | CASEMGMT ---
RYDER MCKOY DC PHONE CALL DC DATE: 06.26.2020 DC DISPOSITION: Home with new oxygen set up DC DIAGNOSIS: COVIDF-19 LACE/STRATA: 14/4 F/U APPTS MADE PRIOR TO DC: yes PRESCRIPTIONS ACQUIRED BY PT: yes Intro role of CM to patient via phone. Patient states he is feeling much improved and he is very glad to be home. He states he was able to take a shower this am and eat breakfast and lunch. Reviewed his oxygen settings and he is not having difficulty adjusting his O2. He has a pulse oximeter and his settings are staying around 92-96%. -He has an appt with CUSTOD[facility] WORKER in July. Patient is aware to contact his family physician if any new symptoms occur or his oxygen levels decrease below 90%. Reviewed medication on dc- patient is taking without difficulty. Roxi MARSHALL RN ACM
== END 2020-06-26 16:05 | disposition home or self-care (01) | DRG 871 ==
LOC: ED 12:45 → MS2 13:56
PROVIDERS: Family Medicine; Internal Medicine; Internal Medicine Infectious Disease; Admitting Provider Internal Medicine; Emergency Provider Physician Assistant; PCP Nurse Practitioner Family
DX: A41.89 Other specified sepsis (principal); J12.89 Other viral pneumonia; U07.1 COVID-19; J96.01 Acute respiratory failure with hypoxia; E43 Unspecified severe protein-calorie malnutrition; E03.9 Hypothyroidism, unspecified; I25.2 Old myocardial infarction; I25.10 Atherosclerotic heart disease of native coronary artery without angina pectoris; Z95.1 Presence of aortocoronary bypass graft; Z79.899 Other long term (current) drug therapy; Z87.891 Personal history of nicotine dependence; Z68.24 Body mass index [BMI] 24.0-24.9, adult
CPT/HCPCS: 36415; 71045; 80048; 80053; 81001; 83605; 83880; 84145; 85025; 85027; 85379; 86900; 86901; 87040; 87635; 93005; 94002; 94003; 94640; 94660; 94762; 97803; 99285; J7030; J7040; J7050; A4216; U0002; U0003

== ENCOUNTER 2023-04-01 09:11 | Emergency (ER) | payer OTHER, SELFPAY ==
[2023-04-01] VITALS (10 sets, daily range): BP systolic 173–234; BP diastolic 94–124; PULSE 90–115; RESP 14–17; TEMP 36.3; O2SAT 95–98; BMI 25.8
--- NOTE | 2023-04-01 09:23 | EX.ED.DYSGE1 ---
HPI History of Present Illness Chief Complaint: Hypertension Detail of Chief Complaint: Hypertension Informant: patient and spouse/S.O. Onset/Context/Timing Onset: - (Prior to cataract surgery) Context: - (Unknown) Timing: - (Unknown) Quality: Patient's blood pressure at the ophthalmology surgical center was 200/112 Location: Cardiovascular Current Severity: Moderate Maximum Severity: Moderate Worsened by: Patient states his pressure does go up when he goes to the doctors, systoli Relieved by: Nothing Associated Symptoms Associated Symptoms: None none Narrative Narrative: Patient is a 72-year-old male who was scheduled to have cataract surgery today. He was noted to have an elevated blood pressure of 200/112. He has no symptoms. He denies headache, visual, ocular auditory symptoms. He denies neck pain or neck stiffness. He denies cardiovascular symptoms. [place] respiratory symptoms. He denies chest pain or back pain. He denies abdominal pain. He denies paresthesia, anesthesia or motor weakness upper or lower extremity. He denies problems with balance or coordination. He denies problems with speech or swallowing. He states his blood pressure does go up when he goes to the doctor. Systolic normally is 150 at the doctor's office. He states he was told that his eyes are very healthy. His left eye was dilated before surgery. Prior similar symptoms: No Recent Illness/Hospitalization: No PFSH PFSH Medical History (Updated 04/01/23 @ 10:[address] Nathan Olguin MD) Fracture of metatarsal of left foot, closed Home Medications levothyroxine 112 mcg tablet 112 mcg PO DAILY THYROID 06/14/20 [History Last Taken 06/15/20] labetalol 100 mg tablet 100 mg PO DAILY #30 tabs 04/01/23 [Rx Last Taken Unknown] Allergy/AdvReac Type Severity Reaction Status Date / Time Iodinated Contrast Media Allergy Swelling Verified 04/01/23 09:14 Social History (Updated 04/01/23 @ 09:[address] Nathan Olguin MD) household members: spouse Smoking Status: Former smoker substance use type: does not use ROS ROS ED Constitutional Constitutional ED: Denies chills, fever(s), subjective or sweats Eyes Eyes: Denies blurry vision, change in vision or diplopia ENT ENT ED: Denies rhinorrhea or sore throat Cardiovascular Cardiovascular: Denies chest pain, orthopnea, palpitations or paroxysmal nocturnal dyspnea Respiratory/Chest Respiratory/Chest: Denies cough, dyspnea, dyspnea on exertion, orthopnea or paroxysmal nocturnal dyspnea Gastrointestinal Gastrointestinal: Denies abdominal pain, nausea or vomiting Genitourinary Genitourinary ED: Denies hematuria Musculoskeletal Musculoskeletal: Denies back pain or neck pain Integumentary Denies rash Neurologic Neurologic: Reports other Details: Read HPI for greater detail. ; Denies headache(s), paresthesias or weakness Psychiatric Psychiatric: Denies anxiety or depression Hematologic/Lymphatic Hematologic/Lymphatic: Reports systems reviewed and no addt'l complaints, except as documented EXAM Physical Exam Const Vital Signs: 04/01/23 09:12 04/01/23 09:28 04/01/23 09:29 Temperature 97.4 F L Temperature Source Temporal Pulse Rate 98 114 H Respiratory Rate 14 17 Respiratory Effort Normal Non-Labored Respiratory Pattern Normal Blood Pressure 211/124 H 234/110 H Blood Pressure Mean 153 151 Pulse Ox 98 96 Oxygen Delivery Method Room Air Room Air 04/01/23 09:40 04/01/23 09:45 04/01/23 09:47 Temperature Temperature Source Pulse Rate 111 H 115 H 101 H Respiratory Rate 16 Respiratory Effort Respiratory Pattern Blood Pressure 231/110 H 199/113 H 208/109 H Blood Pressure Mean 150 141 142 Pulse Ox 97 96 Oxygen Delivery Method Room Air Room Air 04/01/23 09:49 04/01/23 10:31 04/01/23 10:41 Temperature Temperature Source Pulse Rate 97 95 91 Respiratory Rate 16 15 14 Respiratory Effort Respiratory Pattern Blood Pressure 208/104 H 213/105 H 173/99 H Blood Pressure Mean 138 141 123 Pulse Ox 95 95 97 Oxygen Delivery Method Room Air Room Air Room Air 04/01/23 10:43 04/01/23 10:45 Temperature Temperature Source Pulse Rate 90 90 Respiratory Rate 16 17 Respiratory Effort Respiratory Pattern Blood Pressure 191/99 H 199/94 H Blood Pressure Mean 129 129 Pulse Ox 96 96 Oxygen Delivery Method Room Air Room Air Positive well nourished and well developed General Appearance ED: well developed and NAD; Negative for cyanotic, diaphoretic or pallor HEENT Reports moist mucous membranes HEENT Narrative: Uvula is midline. There is no deviation tongue with protrusion. Ears are normal. Nares are patent. Eyes Eyes Narrative: Left eye is dilated. Extraocular muscles are intact. Patient has evidence of cataracts. There is no papilledema. There is no evidence of exudate or hemorrhage. General Eye ED: Negative for pale conjunctiva or scleral icterus Neck no lymphadenopathy, supple and no JVD Chest Wall inspection of chest normal Resp normal respiratory effort and clear to auscultation bilaterally Cardio regular rate, regular rhythm, S1 normal heart sound, S2 normal heart sound and no murmurs GI normal to inspection, nondistended, normoactive bowel sounds, non-tender, non-distended and no masses; Negative for hepatosplenomegaly GI Narrative: There is no palpable or pulsatile mass. Back/Spine no CVA tenderness Extremity normal to inspection General Extremety ED: Negative for edema or tenderness General Extremity: Negative for edema Neuro oriented x3, CN's II-XII intact bilaterally and no sensory deficits noted Neuro Narrative: There is no dysmetria. There is no clonus or Babinski. Bicep, brachialis, triceps, patella and ankle reflex are 1+ and symmetric. Sensorium / Orientation: alert Motor Exam: strength 5/5 throughout Psych mental status grossly normal Skin no rashes or lesions noted, no wounds and skin turgor normal General Skin Exam: Negative for jaundice or pallor MDM MDM MDM Narrative Medical decision making narrative: Patient with a symptomatic hypertension. Blood work was obtained as well as EKG to assess for evidence of endorgan dysfunction i.e. elevated BUN/creatinine, proteinuria or hematuria, LVH. Nurse will assess blood pressure every 15 minutes. If blood pressure remains elevated will treat. His initial blood pressure was 211/124. History & Record Review Additional record(s) reviewed:: Prior inpatient record (For coronary disease), Prior outpatient record (Records for metatarsal fracture from outside facility), Prior ED visit (Visit for fever, coronary disease, hypothyroidism and orthopedic) and Prior labs Lab Data Attestation: I reviewed the patient's lab results. Lab results narrative: CBC reveals slight elevation in hemoglobin compared to prior lab results. Basic metabolic panel reveals normal BUN and creatinine. Patient's blood sugar slightly elevated. Patient's had elevated blood sugars in the past. Urinalysis was remarkable for mild proteinuria and hematuria. There are no casts noted. There are no prior urinalysis for comparison. Labs: Laboratory Results - last 24 hr 04/01/23 04/01/23 09:35 10:34 WBC 9.4 RBC 5.20 Hgb 16.6 H Hct 48.3 MCV 92.9 MCH 31.9 MCHC 34.4 RDW Std Deviation 43.1 RDW Coeff of [place]ie 12.6 Plt Count 205 MPV 9.7 Immature Gran % (Auto) 0.300 Neut % (Auto) 83.5 H Lymph % (Auto) 10.0 L [place] % (Auto) 5.8 Eos % (Auto) 0.2 Baso % (Auto) 0.2 Absolute Neuts (auto) 7.9 H Absolute Lymphs (auto) 0.94 Nucleated RBC % 0 Sodium 138 Potassium 3.8 Chloride 104 Carbon Dioxide 26.0 Anion Gap 8 BUN 16 Creatinine 1.14 Estim Creat Clear Calc 63.30 Est GFR (MDRD) Af Amer 81 Est GFR (MDRD) Non-Af 67 BUN/Creatinine Ratio 14.0 Glucose 159 H Calcium 9.0 Urine Color Yellow Urine Clarity Clear Urine pH 7.0 Ur Specific [place] 1.010 Urine Protein 15 H Urine Glucose (UA) 100 H Urine Ketones Negative Urine Occult Blood 10 H Urine Nitrite Negative Urine Bilirubin Negative Urine Urobilinogen Normal Ur Leukocyte Esterase Negative Urine RBC 0-5 SEEN Urine WBC 0 SEEN Ur Squamous Epith Cells 0 SEEN Urine Bacteria 0 SEEN Urine Mucus 0 SEEN EKG Initial EKG: Attestation: I personally reviewed and interpreted this EKG as follows: Interpretation: Sinus Tachycardia (Rate is 110. Patient does have evidence of LVH with an ossific changes. WA interval is 172 ms. Cures duration 96 ms. QT duration 3 to 34 ms. The axis is normal. There is a ventricular premature beat noted.) Prior: Changed (The changes that the QRS complex is more prominent compared to prior EKG.) Treatment and Re-Evaluation :: Patient is most recent blood pressure is 231/110. 20 mg of IV labetalol was ordered. (0945) As of 1028 patient still has a markedly elevated blood pressure. 40 mg of labetalol was ordered. Patient's blood pressure when I went in to speak with him was 179/99. This is a 20% reduction in his blood pressure. Since he is asymptomatic there is no need to lower the blood pressure in any more. He was discharged home with prescription for labetalol. Labetalol was chosen since he was tachycardic and has history of coronary disease Discharge Plan Triage Chief Complaint: Hypertension ED Provider: Nathan Olguin Dx/Rx/DC Orders Clinical Impression: Hypertensive urgency, CAD (coronary artery disease), Hypothyroidism, Hematuria with proteinuria Instructions: ED Hypertension New Begin Treatment Prescriptions: New labetalol 100 mg tablet 100 mg PO DAILY Qty: 30 0RF No Action levothyroxine 112 MCG tablet 112 mcg PO DAILY Patient Comments: TAKE 1 TABLET BY MOUTH ONCE DAILY FOR 90 DAYS Primary Care Provider: Jagjit Lopez NP Referrals: Jagjit Lopez NP, DIRECTOR MEDICAL WRITING-C [Primary Care Provider] - 1-2 Weeks Disposition Disposition: Home, Self Care
[2023-04-01] MEDS: Labetalol (Prefilled) 20 MG/4 ML IV ×3 (09:44→10:36)
[2023-04-01 09:49] LABS: Absolute Lymphocyte Count 0.94 X10^3/uL (0.83-4.51); Absolute Neutrophil Count 7.9 X10^3/uL (2.0-7.7); Basophil# 0.02 X10^3/uL; Basophil% 0.2 % (0-1); Eosinophil# 0.02 X10^3/uL; Eosinophils% 0.2 % (0-5); Hematocrit 48.3 % (40-54); Hemoglobin 16.6 g/dL (13.0-16.5); Lymphocyte # 0.94 X10^3/ul (0.83-4.51); Mean Corp Hgb Conc 34.4 g/dL (32-36); Mean Corpuscular Hgb 31.9 pg (27.0-32.0); Mean Corpuscular Volume 92.9 fL (80-94); Mean Platelet Vol. 9.7 fl (6.2-12.0); Monocyte# 0.55 X10^3/uL; Monocyte% 5.8 % (0-10); NRBC Flagged by Analyzer 0 % (0-5); Neutrophil # 7.88 X10^3/uL (2.7-7.7); Neutrophil % 83.5 % (47-70); Platelet Count 205 K/mm3 (150-450); RBC Distribution Width CV 12.6 % (11.6-14.6); RBC Distribution Width SD 43.1 fl (35.1-43.9); White Blood Count 9.4 K/mm3 (4.4-11.0)
[2023-04-01 10:09] LABS: Anion Gap 8 (5-15); BUN 16 mg/dL (7-18); Chloride 104 mmol/L (98-107); Creatinine, Serum 1.14 mg/dL (0.70-1.30); EST Glomerular Filtration Rate 67 mL/min (>60); Est Glom Filt Rate - Afr Amer 81 mL/min (>60); Glucose 159 mg/dL (74-106); Potassium 3.8 mmol/L (3.5-5.1); Sodium Level 138 mmol/L (136-145)
[2023-04-01 10:38] LABS: Bacteria 0 SEEN /hpf (None Seen); Mucous, Urine 0 SEEN /hpf (<or=2+); Squamous Epithelial Cells - UA 0 SEEN /hpf (0-5); White Blood Cells 0 SEEN /hpf (0-5)
[2023-04-01 10:46] LABS: Color, Urine Yellow (Yellow); Glucose, Dipstick 100 mg/dl (Normal); Ketone-Dipstick Negative (Negative); Leukocyte Esterase-Dipstick Negative /ul (Negative); Nitrite-Dipstick Negative (Negative); Occult Blood-Urine 10 /ul (Negative); Protein-Dipstick 15 mg/dl (Negative); Urine Bilirubin Dipstick Negative (Negative); Urine Clarity Clear (Clear); Urine Urobilinogen Normal (Normal)
[2023-04-01 10:55] LABS: Red Blood Cells-Urine 0-5 SEEN /hpf (0-5)
== END 2023-04-01 11:19 | disposition home or self-care (01) ==
PROVIDERS: Emergency Provider Emergency Medicine; PCP Nurse Practitioner Family; Visit Provider Emergency Medicine
DX: I16.0 Hypertensive urgency (principal); I25.10 Atherosclerotic heart disease of native coronary artery without angina pectoris; R31.9 Hematuria, unspecified; R80.9 Proteinuria, unspecified; E03.9 Hypothyroidism, unspecified; Z87.891 Personal history of nicotine dependence; Z79.899 Other long term (current) drug therapy
CPT/HCPCS: 80048; 81001; 85025; 93005; 96374; 96376; 99284; A4216

== ENCOUNTER 2024-04-12 10:40 | Observation (INO) | payer OTHER, SELFPAY ==
[2024-04-12] VITALS (8 sets, daily range): BP systolic 148–199; BP diastolic 79–105; PULSE 77–109; RESP 16–18; TEMP 35.9–36.9; O2SAT 96–99; BMI 27.4; BMI 26.5
--- NOTE | 2024-04-12 11:10 | EDS_ITS ---
HPI History of Present Illness Chief Complaint: Chest Pain Informant: patient, spouse/S.O. and EMS Narrative Narrative: 73-year-old male with known coronary artery disease presenting to the emergency room with a chief complaint of chest pain. Patient states he has had 5 vessel bypass in the past. He states he sees cardiology in [place]. Patient states that the last time he had a stress test or heart catheterization was probably about the time of the bypass about 10 years ago. Patient states that he was recently diagnosed with hypertension started on losartan 50 mg twice a day. He states that his parts that workup he had an echocardiogram and he was told he had a slight murmur. He reports that the past 2 weeks he has developed a left chest pressure when he exerts himself. He notes a slight amount of shortness of breath. No sweating nausea or vomiting. He states that seems to gotten a little bit worse as the 2 weeks is gone on. Today he got up and started to walk and the symptoms returned and he made the decision that he needed to be evaluated. He notes that it is hard for him to know what his blood pressure typically is because he has whitecoat syndrome and he does not check it in the outpatient setting [facility] Medical History (Updated 04/12/24 @ 11:[address] Jose Abbott, ) Hypothyroidism CAD (coronary artery disease) Fracture of metatarsal of left foot, closed Home Medications ?Medication ?Instructions ?Recorded ?Last Taken ?Type levothyroxine 112 mcg tablet 112 mcg PO DAILY THYROID 06/14/20 06/15/20 History labetalol 100 mg tablet 100 mg PO DAILY #30 tabs 04/01/23 Unknown Rx Allergy/AdvReac Type Severity Reaction Status Date / Time Iodinated Contrast Media Allergy Swelling Verified 04/12/24 10:41 Surgical History (Updated 04/12/24 @ 11:[address] Jose Abbott DO) History of coronary artery bypass graft Social History household members: spouse Smoking Status: Former smoker substance use type: does not use ROS ROS ED Constitutional Constitutional ED: Denies chills, fever(s) or weight loss Eyes Eyes: Denies change in vision or diplopia ENT ENT ED: Denies ear pain, rhinorrhea or sore throat Cardiovascular Cardiovascular: Reports as per HPI and chest pain; Denies orthopnea, palpitations or racing heartbeat Respiratory/Chest Respiratory/Chest: Reports dyspnea on exertion; Denies cough, dyspnea or orthopnea Gastrointestinal Gastrointestinal: Denies abdominal pain, diarrhea, nausea or vomiting Genitourinary Genitourinary ED: Denies dysuria, hematuria or urinary frequency Musculoskeletal Musculoskeletal: Denies arthralgias or myalgias Integumentary Denies abscess or rash Neurologic Neurologic: Denies headache(s) or weakness Psychiatric Psychiatric: Denies anxiety, depression, suicidal ideation or suicidal thoughts Endocrine Endocrinology: Denies polydipsia, polyphagia or polyuria Allergic/Immunologic Allergic/Immunologic ED: Denies mouth swelling, tongue swelling or urticaria EXAM Physical Exam Const Vital Signs: 04/12/24 10:46 04/12/24 10:46 04/12/24 10:53 Temperature 98.2 F 98.2 F Temperature Source Oral Oral Pulse Rate 109 H Respiratory Rate 16 Respiratory Effort Normal Blood Pressure 199/105 H Blood Pressure Mean 136 Pulse Ox 96 Oxygen Delivery Method Room Air Positive well nourished and well developed General Appearance ED: well developed HEENT Reports normocephalic, head/scalp atraumatic and moist mucous membranes Eyes PERRL and EOMs intact bilaterally Neck no lymphadenopathy, supple and no JVD Resp normal respiratory effort and clear to auscultation bilaterally Cardio regular rate, regular rhythm and no murmurs Rate: tachycardic GI normal to inspection, nondistended, normoactive bowel sounds and non-tender Palpation: soft Back/Spine no CVA tenderness and normal ROM Extremity normal to inspection General Extremety ED: Negative for edema General Extremity: Negative for edema Neuro oriented x3 and CN's II-XII intact bilaterally Sensorium / Orientation: alert Motor Exam: strength 5/5 throughout Psych mental status grossly normal Mood & Affect: anxious; Negative for depressed or tearful Skin no rashes or lesions noted and no wounds MDM MDM MDM Narrative Medical decision making narrative: Differential diagnosis includes but not limited to acute coronary syndrome aortic dissection pleural effusion congestive heart failure unstable angina hypertensive urgency cardiac dysrhythmia Prehospital EKG shows a sinus tachycardia at a ventricular rate of 133 bpm. EKG here in her apartment shows sinus tachycardia rate of 109 bpm. He is noted to be hypertensive initially but again appears anxious. Without treatment heart rate and blood pressure have come down. My independent interpretation the chest x-ray is no acute process. White count 10.3 hemoglobin 16.6 creatinine 1.22 BUN is 16 glucose is 139. Initial troponin is 6. He remains asymptomatic here in the department but he has been at rest. Patient received aspirin by EMS. I spoke with cardiology Dr. Evans and our plan will be admission to the hospital History & Record Review Discussion w/independent historian: EMS personnel, Patient and Significant other Lab Data Attestation: I reviewed the patient's lab results. Labs: Laboratory Results - last 24 hr 04/12/24 11:00 WBC 10.3 RBC 5.20 Hgb 16.6 H Hct 48.3 MCV 92.9 MCH 31.9 MCHC 34.4 RDW Std Deviation 44.0 H RDW Coeff of [place]ie 13.0 Plt Count 237 MPV 10.7 Immature Gran % (Auto) 0.500 Neut % (Auto) 70.1 H Lymph % (Auto) 21.6 [place] % (Auto) 6.5 Eos % (Auto) 0.8 Baso % (Auto) 0.5 Absolute Neuts (auto) 7.2 Absolute Lymphs (auto) 2.23 Nucleated RBC % 0 Sodium 139 Potassium 3.7 Chloride 103 Carbon Dioxide 26.0 Anion Gap 10 BUN 16 Creatinine 1.22 Estim Creat Clear Calc 58.29 Est GFR (MDRD) Af Amer 75 Est GFR (MDRD) Non-Af 62 BUN/Creatinine Ratio 13.1 Glucose 139 H Calcium 9.7 Troponin I High Sens 6 Radiography Diagnostic Testing: Clinical Impression(s) from Imaging Studies Chest X-Ray 04/12/24 11:20 IMPRESSION: No radiographic evidence of acute cardiopulmonary disease. Electronically Signed: Lion Culver MD at 11:58 EDT , EKG Initial EKG: Attestation: I personally reviewed and interpreted this EKG as follows: Comments: Sinus tachycardia ventricular rate of 109 bpm. No definitive features of ACS noted Management Discussion w/another healthcare provider: Hospitalist (Dr. Hoang) and Mainframe Applications Developer (Dr Rose) Discharge Plan Dx/Rx/DC Orders Clinical Impression: Chest pain, Coronary artery disease, Hypertension Disposition Disposition: Acute Care Hospital [facility]
--- NOTE | 2024-04-12 11:10 | EKG12_ITS ---
Test Reason : CP Blood Pressure : / mmHG Vent. Rate : 109 BPM Atrial Rate : 109 BPM P-R Int : 172 ms QRS Dur : 102 ms QT Int : 338 ms P-R-T Axes : 029 013 085 degrees QTc Int : 455 ms Sinus tachycardia Possible Left atrial enlargement Nonspecific ST and T wave abnormality Abnormal ECG Confirmed by TIFF SHANE, SEBASTIAN ([id number]), fashion editor CLEM LEOS ([id number]) on 04/13/2024 7:34:55 AM Referred By: JOLYNN/JOHN Confirmed By:SEBASTIAN MATTHEW MD
--- NOTE | 2024-04-12 11:20 | RAD_ITS ---
INDICATION: chest pain EXAMINATION/TECHNIQUE: X-RAY - XR Chest 1 View COMPARISON: Prior study dated: 06/16/2020 FINDINGS: LINES/DEVICES: None. LUNGS: No consolidation, edema or effusion. No pneumothorax. MEDIASTINUM AND CARDIOVASCULAR STRUCTURES: Normal cardiac silhouette. Status post median sternotomy. BONES AND SOFT TISSUES: No demonstrated acute osseous changes. RAD/Chest 1 View (Portable) IMPRESSION: No radiographic evidence of acute cardiopulmonary disease. Electronically Signed: Lion Culver MD at 11:58 EDT ,
[2024-04-12 11:26] LABS: Absolute Lymphocyte Count 2.23 X10^3/uL (0.83-4.51); Absolute Neutrophil Count 7.2 X10^3/uL (2.0-7.7); Basophil# 0.05 X10^3/uL; Basophil% 0.5 % (0-1); Eosinophil# 0.08 X10^3/uL; Eosinophils% 0.8 % (0-5); Hematocrit 48.3 % (40-54); Hemoglobin 16.6 g/dL (13.0-16.5); Lymphocyte # 2.23 X10^3/ul (0.83-4.51); Lymphocyte % 21.6 % (19-41); Mean Corp Hgb Conc 34.4 g/dL (32-36); Mean Corpuscular Hgb 31.9 pg (27.0-32.0); Mean Corpuscular Volume 92.9 fL (80-94); Mean Platelet Vol. 10.7 fl (6.2-12.0); Monocyte# 0.67 X10^3/uL; Monocyte% 6.5 % (0-10); NRBC Flagged by Analyzer 0 % (0-5); Neutrophil # 7.24 X10^3/uL (2.7-7.7); Neutrophil % 70.1 % (47-70); Platelet Count 237 K/mm3 (150-450); White Blood Count 10.3 K/mm3 (4.4-11.0)
[2024-04-12 11:47] LABS: Anion Gap 10 (5-15); BUN 16 mg/dL (7-18); BUN/Creat Ratio 13.1 RATIO (10-20); Calcium,Total 9.7 mg/dL (8.5-10.1); Chloride 103 mmol/L (98-107); Creatinine, Serum 1.22 mg/dL (0.70-1.30); EST Glomerular Filtration Rate 62 mL/min (>60); Est Glom Filt Rate - Afr Amer 75 mL/min (>60); Estimated Creatinine Clearance 58.29 ml/min; Glucose 139 mg/dL (74-106); Potassium 3.7 mmol/L (3.5-5.1); Sodium Level 139 mmol/L (136-145); Troponin-I HS (w/2H Reflex) 6 pg/mL (3.0-78.0)
--- NOTE | 2024-04-12 12:30 | HP.PCM.HOS_ITS ---
HPI - General General Date of Admission: 04/12/24 Date of Service: 04/12/24 Chief Complaint: Chest pain HPI Narrative LINA SWENSON, is a 73 M with a history of hypertension, hypothyroidism, CAD status post 5 vessel CABG 10 years ago who presented to [facility] ED 04/12/2024 with chest pressure on exertion for 2 weeks. He was in his usual health until 2 weeks ago he began having left-sided chest pressure worsened on exertion and improved with rest, endorse that sometimes it would persist at rest if he overdid it but that was the exception and more so consistently with exertion and improved with rest. No nausea or shortness of breath with this. Patient hypertensive however reports he has whitecoat syndrome and is feeling anxious and this is typical for him. Had a 5 vessel CABG 10 years ago and followed with cardiology in [place] however patient was offered transfer in the ED and patient preferred to stay at our institution. When he required the CABG 10 years ago he endorses that he had undergone upper and lower endoscopies and when he was waking up from anesthesia he felt very unwell and was brought to the ED and found to have had a heart attack. This does not necessarily feel like it did at that time. Patient has not had any stress test or heart cath for about 10 years. ROS otherwise negative [facility] Medical History (Updated 04/12/24 @ 11:[address] Jose Abbott DO) CAD (coronary artery disease) Fracture of metatarsal of left foot, closed Hypothyroidism Home Medications ?Medication ?Instructions ?Recorded ?Last Taken ?Type aspirin 81 mg tablet,delayed 81 mg PO DAILY [facility] 04/12/24 04/12/24 History release (Chelsie Low Dose Aspirin) ezetimibe 10 mg tablet 10 mg PO QPM CHOLESTEROL 04/12/24 04/11/24 History levothyroxine 100 mcg tablet 100 mcg PO DAILY THYROID 04/12/24 04/12/24 History losartan 50 mg tablet 50 mg PO BID BLOOD PRESSURE 04/12/24 04/12/24 History Allergy/AdvReac Type Severity Reaction Status Date / Time Iodinated Contrast Media Allergy Swelling Verified 04/12/24 10:41 Surgical History (Updated 04/12/24 @ 11:[address] Jose Abbott DO) History of coronary artery bypass graft Social History household members: spouse Smoking Status: Former smoker substance use type: does not use ROS ROS Narrative General: Denies fever/chills HENT: Little bit of a headache right now, denies stuffy nose, denies sore throat EYES: Denies changes in vision Resp: Denies cough, denies shortness of breath Cardiac: Left-sided chest pain worse with exertion improved with rest GI: Denies abdominal pain, denies changes in bowel, denies nausea/vomiting : Denies changes in urination Extremity: Denies swelling MSK: Denies weakness Neuro: Denies any numbness/tingling Heme: Denies any bleeding or bruising Skin: Denies rashes Psychiatric: No complaints voiced Vital Signs Vital Signs Vital Signs: 04/12/24 10:46 04/12/24 10:46 04/12/24 10:53 Temperature 98.2 F 98.2 F Temperature Source Oral Oral Pulse Rate 109 H Respiratory Rate 16 Respiratory Effort Normal Blood Pressure 199/105 H Blood Pressure Mean 136 Pulse Ox 96 Oxygen Delivery Method Room Air 04/12/24 11:40 04/12/24 12:00 04/12/24 12:14 Temperature 98.0 F Temperature Source Pulse Rate 97 97 97 Respiratory Rate 18 18 18 Respiratory Effort Blood Pressure 165/84 H 165/84 H 165/84 H Blood Pressure Mean 111 111 111 Pulse Ox 97 97 97 Oxygen Delivery Method Room Air Room Air Weight Weight: 89.3 kg Body Mass Index (BMI) 27.4 Results Lab / Micro Data 04/12/24 11:00 04/12/24 11:00 Labs: Laboratory Results - last 24 hr 04/12/24 11:00: WBC 10.3, RBC 5.20, Hgb 16.6 H, Hct 48.3, MCV 92.9, MCH 31.9, MCHC 34.4, RDW Std Deviation 44.0 H, RDW Coeff of Jennie 13.0, Plt Count 237, MPV 10.7, Immature Gran % (Auto) 0.500, Neut % (Auto) 70.1 H, Lymph % (Auto) 21.6, [place] % (Auto) 6.5, Eos % (Auto) 0.8, Baso % (Auto) 0.5, Absolute Neuts (auto) 7.2, Absolute Lymphs (auto) 2.23, Nucleated RBC % 0, Sodium 139, Potassium 3.7, Chloride 103, Carbon Dioxide 26.0, Anion Gap 10, BUN 16, Creatinine 1.22, Estim Creat Clear Calc 58.29, Est GFR (MDRD) Af Amer 75, Est GFR (MDRD) Non-Af 62, BUN/Creatinine Ratio 13.1, Glucose 139 H, Calcium 9.7, Troponin I High Sens 6 Imaging Radiology Impression Chest X-Ray 04/12/24 11:20 IMPRESSION: No radiographic evidence of acute cardiopulmonary disease. Electronically Signed: Lion Culver MD at 11:58 EDT , Assessment & Plan Assessment/Plan (1) Chest pain: PLAN: Plan # Left-sided chest pressure -Worse with exertion and improved with rest and has been consistent over the past 2 weeks -Heart score 5 -EKG nonspecific ST changes -Trop 6, will cycle -Admit to telemetry -Echo ordered -Aspirin -Statin -Lipid panel in AM -Cardiology consulted, current plan is for heart cath in the a.m. -Given patient chest pain-free no indication for heparin drip at this time # Hypertension -SBP 199/105 in the ED and came down to 160s without intervention. Patient reports he consistently has elevated blood pressures and often heart rates due to anxiety whenever he sees doctors -Will continue home losartan -Hydralazine as needed -Would likely benefit from ambulatory blood pressure assessment to see if outpatient medications need adjusted -Cannot rule out that this contributed to patient's chest pain on outpatient basis however given cardiac history and chest pain worsened on exertion and better at rest feel cardiac workup is indicated, continue to monitor blood pressure # History of coronary artery disease status post CABG -5 vessel bypass 10 years ago -Is followed cardiology in [place] however patient offered transfer in ED and preferred to stay at our institution -Aspirin, statin, ezetimibe -Unclear why patient is not on beta-davy, will need to clarify and ideally start prior to discharge if no contraindications identified #Hypothyroidism -Continue Synthroid -Will check TSH especially given patient's hypertension #DVT ppx: Lovenox subcu Cristela Hoang MD Time spent in the patient's overall evaluation,decision-making process, review of diagnostic data, adjustment of management, discussion with other providers, nursing nursing and ancillary staff involved in patient's care documentation, 56 Minutes Charges/Coding Visit Charges Inpatient E&M: 84923 Init Hosp L2
--- NOTE | 2024-04-12 13:04 | ECHOD_ITS ---
Reason For Study: CHEST PAIN Procedure This was a 2D Doppler, Color Flow transthoracic echocardiogram. Exam performed portable in patient room. Left Ventricle Normal LV size. Left ventricular systolic function is normal. The left ventricular ejection fraction is 65 %. Stage 1 diastolic dysfunction. No regional wall motion abnormalities noted. Right Ventricle Normal RV size. Normal systolic function. Atria Normal left atrium. Mitral Valve Normal mitral valve. Tricuspid Valve Normal tricuspid valve. Aortic Valve Trisinus/trileaflet aortic valve. Pulmonic Valve Normal pulmonic valve. Great Vessels Normal aortic root. The pulmonary artery is normal size. Pericardium/Pleural No pericardial effusion. MMode/2D Measurements & Calculations RVDd: 3.4 cm Ao root diam: 3.1 cm LAV(MOD-bp): 42.7 ml LAV(MOD-bp) Indexed: 20.7 ml/m2 LAV(MOD-sp2): 36.8 ml LAV(MOD-sp4): 40.8 ml SV(MOD-sp4): 43.4 ml SV(sp4-el): 43.6 ml LVAd ap4: 24.7 cm2 LVLd ap4: 7.6 cm EDV(MOD-sp4): 71.3 ml EDV(sp4-el): 67.9 ml LVAs ap4: 13.6 cm2 LVLs ap4: 6.4 cm ESV(MOD-sp4): 27.9 ml ESV(sp4-el): 24.4 ml EF(MOD-sp4): 60.9 % EF(sp4-el): 64.1 % LA A4 area: 17.1 cm2 LA dimension(2D): 3.8 cm RA A4 area: 14.9 cm2 TAPSE: 0.98 cm Time Measurements MV dec time: 0.14 sec Doppler Measurements & Calculations MV E max richy: 45.6 cm/sec Lat Peak E' Richy: 10.1 cm/sec Med Peak E' Richy: 9.3 cm/sec MV A max richy: 101.9 cm/sec E/E' lat: 4.5 E/E' med: 4.9 MV E/A: 0.45 MV V2 max: 91.2 cm/sec Ao V2 max: 143.9 cm/sec MV max P.3 mmHg MV dec slope: 320.1 cm/sec2 Ao max P.3 mmHg MV V2 mean: 52.3 cm/sec Ao V2 mean: 97.6 cm/sec MV mean P.3 mmHg Ao mean P.5 mmHg MV V2 VTI: 22.8 cm Ao V2 VTI: 26.2 cm AV (velocity ratio): 1.1 LV V1 max: 129.4 cm/sec PA V2 max: 87.1 cm/sec LV V1 max P.7 mmHg PA V2 mean: 59.1 cm/sec LV V1 mean P.1 mmHg LV V1 mean: 76.3 cm/sec LV V1 VTI: 27.6 cm ECHO/Echo Complete Interpretation Summary Normal LV size. Left ventricular systolic function is normal. The left ventricular ejection fraction is 65 %. Stage 1 diastolic dysfunction. Ordering Physician: Cristela Hoang Referring Physician: SHERWIN MCCRAY Performed By: Diann Steven RCS
--- NOTE | 2024-04-12 13:04 | EKG12_ITS ---
Test Reason : CP ADMISSION Blood Pressure : / mmHG Vent. Rate : 084 BPM Atrial Rate : 084 BPM P-R Int : 166 ms QRS Dur : 092 ms QT Int : 372 ms P-R-T Axes : 028 016 037 degrees QTc Int : 439 ms Normal sinus rhythm Possible Left atrial enlargement Nonspecific T wave abnormality Abnormal ECG When compared with ECG of 01-APR-2023 09:31, Fusion complexes are no longer Present ST no longer depressed in Lateral leads Confirmed by TIFF SHANE, SEBASTIAN ([id number]), rewrite editor CLEM LEOS ([id number]) on 04/13/2024 7:48:46 AM Referred By: Confirmed By:SEBASTIAN MATTHEW MD
[2024-04-12 13:18] LABS: Reflex Troponin-HS? (from REC) Y
[2024-04-12] MEDS: 0.9% Normal Saline (1000mL) 1,000 ML 50 ML IV (13:30)
[2024-04-12 14:00] LABS: Troponin-I HS 14 pg/mL (3.0-78.0)
[2024-04-12 17:33] LABS: Troponin-I HS 22 pg/mL (3.0-78.0)
--- NOTE | 2024-04-12 18:39 | PCM.CONS.C ---
Assessment & Plan Assessment/Plan (1) Unstable angina: PLAN: He does have a history of unstable angina. This appears to be fairly new onset. My recommendation is that we proceed with a cardiac catheterization in the morning. There is benefits alternatives of been explained to him he understands and agrees to proceed. In the meantime we will proceed as follows: Aspirin 81 mg a day. Lopressor 25 mg twice a day. Atorvastatin 40 mg a day. (2) Hypertension: PLAN: His blood pressure should be much better controlled. I would recommend the addition of a beta-davy to his current losartan regimen. If his blood pressure still not well-controlled we may need to add amlodipine to his regimen. His echocardiogram today demonstrated preserved left ventricular systolic function. Thank you for allowing me to participate in the care of your patient. Please don't hesitate to call if any issues arise. HPI Consult Data Date of Consult: 04/12/24 HPI Narrative HPI Narrative: LINA SWENSON, is a 73 M who presents to the emergency room with complaints of chest discomfort which arises with exertion and goes away with rest. He says that he has been having this for the last couple of weeks. He has a history of hypertension, hypothyroidism, CAD status post 5 vessel CABG 10 years ago who presented to [facility] ED 04/12/2024 with chest pressure on exertion for 2 weeks. He was in his usual health until 2 weeks ago he began having left-sided chest pressure worsened on exertion and improved with rest, No nausea or shortness of breath with this. He says that he saw the nurse practitioner and was noted to have elevated blood pressure was put on losartan but he does not know why his blood pressure has suddenly gone up. He also had a stress test a few years ago and has had serial echocardiograms. He denies any dizziness or diaphoresis near syncope or syncope. In the emergency room he was noted to have normal sinus rhythm with no acute changes his blood pressure was noted to be elevated. Cardiology was called for further evaluation and management. [facility] Medical History Hypothyroidism CAD (coronary artery disease) Fracture of metatarsal of left foot, closed Home Medications ?Medication ?Instructions ?Recorded ?Last Taken ?Type aspirin 81 mg tablet,delayed 81 mg PO DAILY [facility] 04/12/24 04/12/24 History release (Chelsie Low Dose Aspirin) ezetimibe 10 mg tablet 10 mg PO QPM CHOLESTEROL 04/12/24 04/11/24 History levothyroxine 100 mcg tablet 100 mcg PO DAILY THYROID 04/12/24 04/12/24 History losartan 50 mg tablet 50 mg PO BID BLOOD PRESSURE 04/12/24 04/12/24 History Allergy/AdvReac Type Severity Reaction Status Date / Time Iodinated Contrast Media Allergy Swelling Verified 04/12/24 10:41 Surgical History History of coronary artery bypass graft Social History household members: spouse Smoking Status: Former smoker substance use type: does not use ROS Constitutional Constitutional: Denies fever(s) or weight loss Eyes Eyes: Reports systems reviewed and no addt'l complaints, except as documented ENT HEENT: Reports systems reviewed and no addt'l complaints, except as documented Cardiovascular Cardiovascular: Denies chest pain at rest, chest pain with activity, dyspnea at rest, dyspnea on exertion, edema, palpitations or paroxysmal nocturnal dyspnea Respiratory/Chest Respiratory/Chest: Denies dyspnea on exertion, productive cough, shortness of breath at rest or shortness of breath with exertion Gastrointestinal Gastrointestinal: Denies change in bowel habits, nausea, vomiting or weight changes Genitourinary Genitourinary: Denies difficulty urinating Musculoskeletal Musculoskeletal: Denies joint stiffness or muscle weakness Integumentary Integumentary: Denies lesions Neurologic Neurologic: Denies dizziness or syncope Psychiatric Psychiatric: Denies anxiety Endocrine Endocrinology: Denies excessive sweating or fatigue Hematologic/Lymphatic Hematologic/Lymphatic: Denies anemia Allergic/Immunologic Allergic/Immunologic: Denies seasonal rhinorrhea Physical Exam Const alert, oriented x3 and no apparent distress General Appearance: cooperative HEENT hearing grossly normal bilaterally Head and Scalp: atraumatic Eyes EOMs intact bilaterally Neck General: normal visual inspection Chest inspection of chest normal and palpation of chest normal Resp normal respiratory effort Auscultation: clear to auscultation bilaterally Cardio regular rate, regular rhythm, S1 normal heart sound and S2 normal heart sound Jugular Venous Distention: JVD GI normal to inspection, nondistended, normoactive bowel sounds Extremity normal capillary refill and no pedal edema Peripheral Pulses: Yes pulses 2+ throughout and femoral pulses present Skin no rashes or lesions noted Neuro oriented x3 and CN's II-XII intact bilaterally Psych Appearance: grossly normal and appropriate Risk Stratification Risk Stratification Applicable: Yes Age >/= 65: Yes >/= 3 CAD Risk Factors (HTN, HLD, DM, family hx of CAD, or current smoker): Yes Aspirin Use in the Past 7 Days: Yes Severe Angina (>/= episodes in 24 hours): No EKG ST Changes >/= 0.5mm: No Positive Cardiac Marker: No OUMAR Risk Stratification Score: 3 OUMAR % Risk: 13% Risk Objective Data Vital Signs: Vital Signs Temp Pulse Resp BP Pulse Ox O2 Del Method 98.1 F 86 18 163/79 H 97 Room Air 04/12/24 16:51 04/12/24 16:51 04/12/24 16:51 04/12/24 16:51 04/12/24 16:51 04/12/24 16:51 Oxygen Delivery Method Room Air Weight: 190 lb 7.67 oz Body Mass Index (BMI) 26.5 Intake & Output: Intake and Output for Last 24 Hours 04/10/24 04/11/24 04/12/24 23:59 23:59 23:59 Intake Total 0 / 0 Balance 0 / 0 Lab / Micro Data 04/12/24 11:00 04/12/24 11:00 Labs: Laboratory Results - last 24 hr 04/12/24 11:00: WBC 10.3, RBC 5.20, Hgb 16.6 H, Hct 48.3, MCV 92.9, MCH 31.9, MCHC 34.4, RDW Std Deviation 44.0 H, RDW Coeff of Jennie 13.0, Plt Count 237, MPV 10.7, Immature Gran % (Auto) 0.500, Neut % (Auto) 70.1 H, Lymph % (Auto) 21.6, [place] % (Auto) 6.5, Eos % (Auto) 0.8, Baso % (Auto) 0.5, Absolute Neuts (auto) 7.2, Absolute Lymphs (auto) 2.23, Nucleated RBC % 0, Sodium 139, Potassium 3.7, Chloride 103, Carbon Dioxide 26.0, Anion Gap 10, BUN 16, Creatinine 1.22, Estim Creat Clear Calc 58.29, Est GFR (MDRD) Af Amer 75, Est GFR (MDRD) Non-Af 62, BUN/Creatinine Ratio 13.1, Glucose 139 H, Calcium 9.7, Troponin I High Sens 6 04/12/24 13:20: Troponin I High Sens 14 04/12/24 17:04: Troponin I High Sens 22 Cardiology Labs/Tests 04/12/24 11:00: WBC 10.3, RBC 5.20, Hgb 16.6 H, Hct 48.3, MCV 92.9, MCH 31.9, MCHC 34.4, Plt Count 237, MPV 10.7, Immature Gran % (Auto) 0.500, Neut % (Auto) 70.1 H, Lymph % (Auto) 21.6, [place] % (Auto) 6.5, Eos % (Auto) 0.8, Baso % (Auto) 0.5, Absolute Neuts (auto) 7.2, Nucleated RBC % 0, Sodium 139, Potassium 3.7, Chloride 103, Carbon Dioxide 26.0, Anion Gap 10, BUN 16, Creatinine 1.22, Est GFR (MDRD) Af Amer 75, Est GFR (MDRD) Non-Af 62, BUN/Creatinine Ratio 13.1, Glucose 139 H, Calcium 9.7 Rhythm: EKG: ECHO: Stress Test: Cardiac Cath: PCI: CT Surgery: Holter monitor: EPS: PPM: CXR: Chest CT Scan: Radiography Diagnostic Testing: Radiology Impression Chest X-Ray 04/12/24 11:20 IMPRESSION: No radiographic evidence of acute cardiopulmonary disease. Electronically Signed: Lion Culver MD at 11:58 EDT , Echocardiogram 04/12/24 13:04 Interpretation Summary Normal LV size. Left ventricular systolic function is normal. The left ventricular ejection fraction is 65 %. Stage 1 diastolic dysfunction. Ordering Physician: Cristela Hoang Referring Physician: SHERWIN MCCRAY Performed By: Diann Steven RCS
[2024-04-12] MEDS: Losartan Potassium 50 MG Tablet PO (22:28)
[2024-04-12] MEDS: Ezetimibe 10 MG Tablet PO (22:28)
[2024-04-12] MEDS: Atorvastatin Calcium 80 MG Tablet PO (22:28)
[2024-04-12] MEDS: Metoprolol Tartrate 25 MG Tablet PO (22:31)
[2024-04-13] VITALS (15 sets, daily range): BP systolic 98–200; BP diastolic 71–89; PULSE 62–92; RESP 16–18; TEMP 36.2–36.6; O2SAT 93–98
[2024-04-13] MEDS: Levothyroxine 100 MCG Tablet PO (06:07)
[2024-04-13] MEDS: Metoprolol Tartrate 25 MG Tablet PO ×2 (06:07→10:48)
[2024-04-13] MEDS: Losartan Potassium 50 MG Tablet PO (06:08)
[2024-04-13] MEDS: Aspirin E.C. 81 MG Tablet PO (06:08)
[2024-04-13 07:02] LABS: Absolute Lymphocyte Count 2.41 X10^3/uL (0.83-4.51); Absolute Neutrophil Count 5.9 X10^3/uL (2.0-7.7); Basophil# 0.03 X10^3/uL; Basophil% 0.3 % (0-1); Eosinophil# 0.16 X10^3/uL; Eosinophils% 1.7 % (0-5); Hemoglobin 16.5 g/dL (13.0-16.5); Lymphocyte # 2.41 X10^3/ul (0.83-4.51); Lymphocyte % 26.3 % (19-41); Mean Corp Hgb Conc 33.7 g/dL (32-36); Mean Corpuscular Hgb 31.3 pg (27.0-32.0); Mean Platelet Vol. 9.8 fl (6.2-12.0); Monocyte% 7.6 % (0-10); NRBC Flagged by Analyzer 0 % (0-5); Neutrophil # 5.85 X10^3/uL (2.7-7.7); Neutrophil % 63.9 % (47-70); Platelet Count 243 K/mm3 (150-450); RBC Distribution Width SD 44.7 fl (35.1-43.9); Red Blood Count 5.27 M/mm3 (4.6-6.2); White Blood Count 9.2 K/mm3 (4.4-11.0)
[2024-04-13 07:37] LABS: AST(SGOT) 21 U/L (15-37); Alanine Aminotransfer ALT/SGPT 28 U/L (16-61); Albumin, Serum 3.7 g/dL (3.2-5.0); Alkaline Phosphatase 104 U/L (45-117); Anion Gap 7 (5-15); BUN 15 mg/dL (7-18); BUN/Creat Ratio 14.3 RATIO (10-20); Bilirubin, Direct 0.18 mg/dL (0.00-0.30); Calcium,Total 9.5 mg/dL (8.5-10.1); Chloride 107 mmol/L (98-107); Cholesterol 194 mg/dL (200); Creatinine, Serum 1.05 mg/dL (0.70-1.30); EST Glomerular Filtration Rate 74 mL/min (>60); Est Glom Filt Rate - Afr Amer 89 mL/min (>60); Estimated Creatinine Clearance 67.73 ml/min; Globulin 3.4 g/dL (2.2-4.2); Glucose 114 mg/dL (74-106); High Density Lipoprotein 48 mg/dL; Potassium 3.9 mmol/L (3.5-5.1); Protein, Total 7.1 g/dL (6.4-8.2); Sodium Level 138 mmol/L (136-145); Triglycerides 97 mg/dL; Very Low Density Lipoprotein 19 mg/dL (5-40)
[2024-04-13] MEDS: hydrALAZINE 20 MG/ML Vial 5 MG IV (07:40)
[2024-04-13 08:04] LABS: International Normalized Ratio 1.1; Prothrombin Time (Protime)PT. 13.8 SECONDS (11.7-14.9)
--- NOTE | 2024-04-13 08:50 | CASEMGMT ---
Insurance review for hospitals In-network with [facility] Aid insurance if transfer is recommended is as follows: [facility], [place], [facility], [place], [facility], [facility], [facility], [facility], [place], [facility]), and . Makayla Owen, Discharge Planning Asst.
--- NOTE | 2024-04-13 09:13 | PN.CARD_ITS ---
Subjective Subjective Patient seen and evaluated Objective Data Vital Signs: Vital Signs Temp Pulse Resp BP Pulse Ox O2 Del Method 97.9 F 80 18 200/84 H 95 Room Air 04/13/24 07:33 04/13/24 07:40 04/13/24 07:33 04/13/24 07:40 04/13/24 07:33 04/13/24 07:33 Oxygen Delivery Method Room Air Weight: 190 lb 7.67 oz Body Mass Index (BMI) 26.5 Intake & Output: Intake and Output for Last 24 Hours 04/11/24 04/12/24 04/13/24 23:59 23:59 23:59 Intake Total 0 / 0 Balance 0 / 0 Lab / Micro Data 04/13/24 06:16 04/13/24 06:16 Labs: Laboratory Results - last 24 hr 04/12/24 11:00: WBC 10.3, RBC 5.20, Hgb 16.6 H, Hct 48.3, MCV 92.9, MCH 31.9, MCHC 34.4, RDW Std Deviation 44.0 H, RDW Coeff of Jennie 13.0, Plt Count 237, MPV 10.7, Immature Gran % (Auto) 0.500, Neut % (Auto) 70.1 H, Lymph % (Auto) 21.6, [place] % (Auto) 6.5, Eos % (Auto) 0.8, Baso % (Auto) 0.5, Absolute Neuts (auto) 7.2, Absolute Lymphs (auto) 2.23, Nucleated RBC % 0, Sodium 139, Potassium 3.7, Chloride 103, Carbon Dioxide 26.0, Anion Gap 10, BUN 16, Creatinine 1.22, Estim Creat Clear Calc 58.29, Est GFR (MDRD) Af Amer 75, Est GFR (MDRD) Non-Af 62, BUN/Creatinine Ratio 13.1, Glucose 139 H, Calcium 9.7, Troponin I High Sens 6 04/12/24 13:20: Troponin I High Sens 14 04/12/24 17:04: Troponin I High Sens 22 04/13/24 06:16: WBC 9.2, RBC 5.27, Hgb 16.5, Hct 49.0, MCV 93.0, MCH 31.3, MCHC 33.7, RDW Std Deviation 44.7 H, RDW Coeff of Jennie 13.0, Plt Count 243, MPV 9.8, Immature Gran % (Auto) 0.200, Neut % (Auto) 63.9, Lymph % (Auto) 26.3, [place] % (Auto) 7.6, Eos % (Auto) 1.7, Baso % (Auto) 0.3, Absolute Neuts (auto) 5.9, Absolute Lymphs (auto) 2.41, Nucleated RBC % 0, PT 13.8, INR 1.1, Sodium 138, Potassium 3.9, Chloride 107, Carbon Dioxide 24.0, Anion Gap 7, BUN 15, Creatinine 1.05, Estim Creat Clear Calc 67.73, Est GFR (MDRD) Af Amer 89, Est GFR (MDRD) Non-Af 74, BUN/Creatinine Ratio 14.3, Glucose 114 H, Calcium 9.5, Magnesium 2.0, Total Bilirubin 1.00, Direct Bilirubin 0.18, AST 21, ALT 28, Alkaline Phosphatase 104, Total Protein 7.1, Albumin 3.7, Globulin 3.4, Triglycerides 97, Cholesterol 194, LDL Cholesterol 127, VLDL Cholesterol 19, HDL Cholesterol 48, TSH 3.750 H Cardiology Labs/Tests 04/12/24 11:00: WBC 10.3, RBC 5.20, Hgb 16.6 H, Hct 48.3, MCV 92.9, MCH 31.9, MCHC 34.4, Plt Count 237, MPV 10.7, Immature Gran % (Auto) 0.500, Neut % (Auto) 70.1 H, Lymph % (Auto) 21.6, [place] % (Auto) 6.5, Eos % (Auto) 0.8, Baso % (Auto) 0.5, Absolute Neuts (auto) 7.2, Nucleated RBC % 0, Sodium 139, Potassium 3.7, Chloride 103, Carbon Dioxide 26.0, Anion Gap 10, BUN 16, Creatinine 1.22, Est GFR (MDRD) Af Amer 75, Est GFR (MDRD) Non-Af 62, BUN/Creatinine Ratio 13.1, G lucose 139 H, Calcium 9.7 04/13/24 06:16: WBC 9.2, RBC 5.27, Hgb 16.5, Hct 49.0, MCV 93.0, MCH 31.3, MCHC 33.7, Plt Count 243, MPV 9.8, Immature Gran % (Auto) 0.200, Neut % (Auto) 63.9, Lymph % (Auto) 26.3, [place] % (Auto) 7.6, Eos % (Auto) 1.7, Baso % (Auto) 0.3, Absolute Neuts (auto) 5.9, Nucleated RBC % 0, PT 13.8, INR 1.1, Sodium 138, Potassium 3.9, Chloride 107, Carbon Dioxide 24.0, Anion Gap 7, BUN 15, Creatinine 1.05, Est GFR (MDRD) Af Amer 89, Est GFR (MDRD) Non-Af 74, BUN/Creatinine Ratio 14.3, Glucose 114 H, Calcium 9.5, Magnesium 2.0, Total Bilirubin 1.00, Direct Bilirubin 0.18, Triglycerides 97, Cholesterol 194, LDL Cholesterol 127, VLDL Cholesterol 19, HDL Cholesterol 48 Rhythm: EKG: ECHO: Stress Test: Cardiac Cath: PCI: CT Surgery: Holter monitor: EPS: PPM: CXR: Chest CT Scan: Radiography Diagnostic Testing: Radiology Impression Chest X-Ray 04/12/24 11:20 IMPRESSION: No radiographic evidence of acute cardiopulmonary disease. Electronically Signed: Lion Culver MD at 11:58 EDT , Echocardiogram 04/12/24 13:04 Interpretation Summary Normal LV size. Left ventricular systolic function is normal. The left ventricular ejection fraction is 65 %. Stage 1 diastolic dysfunction. Ordering Physician: Cristela Hoang Referring Physician: SHERWIN MCCRAY Performed By: Diann Steven RCS Physical Exam Const alert, oriented x3 and no apparent distress General Appearance: cooperative HEENT hearing grossly normal bilaterally Head and Scalp: atraumatic Eyes EOMs intact bilaterally Neck General: normal visual inspection Chest inspection of chest normal and palpation of chest normal Resp normal respiratory effort Auscultation: clear to auscultation bilaterally Cardio regular rate, regular rhythm, S1 normal heart sound and S2 normal heart sound Jugular Venous Distention: JVD GI normal to inspection, nondistended, normoactive bowel sounds Extremity normal capillary refill and no pedal edema Peripheral Pulses: Yes pulses 2+ throughout and femoral pulses present Skin no rashes or lesions noted Neuro oriented x3 and CN's II-XII intact bilaterally Psych Appearance: grossly normal and appropriate Assessment & Plan Assessment/Plan (1) Unstable angina: PLAN: He does have a history of unstable angina. This appears to be fairly new onset. My recommendation is that we proceed with a cardiac catheterization It demonstrated the following. Left main coronary artery is patent. LAD is totally occluded. Left circumflex artery is totally occluded. Right coronary artery severely diseased with 50% proximal, 70% sequential distal. LERMA to LAD patent. Saphenous vein graft to diagonal branch occluded. Saphenous vein graft as a T graft to the obtuse marginal branch is patent. Saphenous vein graft to the obtuse marginal branch 3 patent. Continuation of the saphenous vein graft is a T graft to the posterior descending artery is patent. Preserved left ventricular ejection fraction. Based on the above angiographic findings I would recommend we continue current medical therapy. (2) Hypertension: PLAN: His blood pressure should be much better controlled. Will recommend addition of amlodipine 10 mg to her current regimen. Lopressor 50 mg twice a day. Losartan 50 mg twice a day. Thank you for allowing me to participate in the care of your patient. Please don't hesitate to call if any issues arise.
--- NOTE | 2024-04-13 09:24 | CL.D_ITS ---
Patient Name: LINA SWENSON Study Date: 04/13/2024 Performing: Ang Rose MD Ht: 71 inches 180.34 cm : 1950 Wt: 190.48 lbs 86.4 kg Age: 73 Gender: male BSA: 2.07 PROCEDURE(S) PERFORMED DC03-(00551)LHC/COR/LV/CABG CLINICAL PROFILE AND INDICATIONS Indications: Suspected CAD Heart Failure: None Stress/Imaging Stress/Image Study Performed: No CAD Presentations: Unstable angina. CONCLUSIONS Patient is status post coronary bypass surgery with a LERMA to the LAD, saphenous vein graft to the first diagonal branch, obtuse marginal branch, third obtuse marginal and posterior descending artery. All the bypass vessels are open except for the saphenous vein graft to the first diagonal branch which is occluded. His ejection fraction is preserved. Uncontrolled hypertension RECOMMENDATIONS I would recommend aggressive medical therapy and control of his blood pressure. DESCRIPTION OF PROCEDURE The patient arrived to the procedure lab. The risks and benefits of the procedure as well as a full description of our services here and current unavailability of surgical backup were fully explained to the patient and/or their significant other prior to the catheterization. The Timeout was completed, verifying the correct patient and procedure. The patient's procedural site was prepped and draped in the usual fashion. Local anesthetic was given subcutaneously to left radial region with Lidocaine 2%. Using a modified Seldinger technique, arterial access was obtained via the left radial artery, a 6Fr sheath was inserted. Left internal mammary artery graft to the LAD selective angiography was performed in multiple views using a 5 Fr. IM catheter. Left Coronary Artery selective angiography was performed in multiple views using a 5 Fr. JL4 catheter. Right Coronary Artery selective angiography was then performed in multiple views using a 5 Fr. 3DRC (Ramos) catheter. Saphenous Vein graft to the OM 1 selective angiography was performed in multiple views using a 5 Fr. AR MOD catheter. LV to AO pullback pressures were then recorded. Left Ventriculography was performed in RAYGOZA projection using a 5 Fr. Pigtail catheter.The arterial sheath was pulled and a TR Band was applied for hemostasis, 10cc air in radial band CORONARY ANGIOGRAPHY DOMINANCE: Right Dominant LEFT HEART ASSESSMENT Left Ventricular Ejection Fraction: by LV Gram 60 % Normal LV wall motion Normal Left Ventricular systolic function LEFT MAIN: No significant disease noted LEFT ANTERIOR DESCENDING ARTERY: MID LAD: is occluded CIRCUMFLEX ARTERY: is occluded RIGHT CORONARY ARTERY: This is a large dominant vessel diffusely diseased with proximal 50% and mid 70 to 80% and distal 80% stenosis. This prior to the bifurcation the posterior descending artery and posterolateral vessel. GRAFTS: LERMA graft to the Mid LAD is patent Saphenous Vein graft to the 1st Diagonal is totally occluded Saphenous Vein graft to the 3rd OM is patent Y graft to the 1st OM is patent Y graft to the RPDA is patent COMPLICATIONS No Complications PROCEDURE MEDICATIONS Versed 1 mg IV Fentanyl 50 mcg IV Oxygen: 2 L/min via nasal cannula Benadryl 50 mg IV @ 04/13/2024 08:17:48 Heparin given IA 04/13/2024 08:33:26 Solu-medrol 125 mg IV 04/13/2024 08:18:22 SUMMARY OF HEMODYNAMIC DATA Time AIR REST ECG 08:19:28 AO 180/88 (126) SA 08:44:55 LV 180/6, 17 09:07:43 LV 178/7, 18 09:07:54 LV 165/12, 15 09:08:35 Signed By Ang Rose MD On 04/13/2024 09:23:02 Ang Rose MD
--- NOTE | 2024-04-13 10:39 | DCINST_ITS ---
Discharge Instructions Diet Discharge Diet: - (DASH diet) Activity Discharge Activity: - (See attached instructions) Follow Up Care Test Results: Test results from this visit will be discussed in further detail at your follow- up appointment, if applicable. Discharge Plan Admission Admit Date/Time: 04/12/24 12:30 Primary Reason for Your Visit: Chest pain, high blood pressure Attending Provider: Cristela Hoang Primary Care Provider: Jagjit Lopez NP Consulting Providers: Ang Rose Instructions Patient Instructions: ED High Blood Pressure Hypertension Additional Instructions / Restrictions: DISCHARGE INSTRUCTIONS PLEASE READ *Please take this with you to your next doctors appointment* -You have been started on amlodipine and metoprolol for your blood pressure which she will take in addition to your losartan -Please take your blood pressure daily in the morning and log this. If there are any questions or concerns please contact your primary care physician or heart doctor -You will continue your aspirin and you currently take ezetimibe. Consider discussing atorvastatin or other statin addition with your primary care physician if they think that this is warranted given your heart history -Check your incisions every day for signs of infection which would include redness, swelling, leaking. It is normal to have a small bruise or bump where the catheter was placed but a bruise that is getting larger is not normal. Please tell your healthcare team about this. Please proceed to the emergency department if you have uncontrollable bleeding from the site. -It is important to eat a diet that is low in fat, salt, and cholesterol -Okay to shower from the day after your heart catheterization but keep your incision site clean and dry. Blood pressure monitoring recommendations: -Don't smoke or drink coffee for 30 minutes before measuring your blood pressure. -Go to the bathroom before the test. -Relax for 5 minutes before taking the measurement. -Sit correctly. Be sure your back is supported. Don't sit on a couch or soft chair. Uncross your feet and place them flat on the floor. Place your arm on a solid, flat surface like a table with the upper arm at heart level. Make certain the middle of the cuff is directly above the bendof the elbow. Check the monitor's instruction manual for an illustration. -Take multiple readings. When you measure, take 2 or 3 readings 1 minute apart and record all of the results. -Take your blood pressure at the same time every day, or as your healthcare provider recommends. -Record the date, time, and blood pressure reading. -Take the record with you to your next appointment. If your blood pressure monitor has a built-in memory, simply take the monitor with you to your next appointment. -Call your provider if you have several high readings. Don't be frightened by a single high reading, but if you get several high readings, check in with your healthcare provider. Note: When blood pressure reaches a systolic (top number) of 180 or higher or a diastolic (bottom number) of 110 or higher, Call your healthcare provider right away. -Please call your primary care provider's office upon discharge to schedule a hospital follow up within 1 week. -For any concerning signs or symptoms please call 911 or proceed to the nearest emergency department Discharge Orders/Prescriptions Prescriptions: New amlodipine 10 mg Tablet 10 mg PO DAILY 30 Days Qty: 30 0RF metoprolol tartrate 50 mg Tablet 50 mg PO BID 30 Days Qty: 60 0RF Continued losartan 50 mg tablet 50 mg PO BID levothyroxine 100 mcg tablet 100 mcg PO DAILY aspirin [Chelsie Low Dose Aspirin] 81 mg tablet,delayed release (DR/EC) 81 mg PO DAILY ezetimibe 10 mg tablet 10 mg PO QPM Referrals / Follow Up: Jagjit Lopez DRYING ROOM OPERATOR, DRYING ROOM OPERATOR-C [Primary Care Provider] - Within 1 Week Disposition Disposition (needs filled in before D/C Order can be placed): Home, Self Care
[2024-04-13] MEDS: amLODIPine 10 MG Tablet PO (10:48)
--- NOTE | 2024-04-13 10:53 | PCM.DC.SUM ---
Providers Date of Admission: 04/12/24 Date of Discharge: 04/13/24 Primary Care Physician: Sherwin Lopez, TIERRA-C Consultations 04/12/24 13:09 Consult: Cardiology Routine Consulting Provider: Ang Rose Reason for Consult: chest pain EMERGENT Consult: No MD Notified: Yes Date Notified: 04/12/24 Time Notified: 13:09 Method of Notification: Verbal Reason For Visit: CHEST PAIN CAD Diagnosis Discharge Diagnosis (1) Hypertension: Status: Chronic Code(s): I10 - Essential (primary) hypertension Plan # Left-sided chest pressure- s/p cath no stenting required # Hypertension # History of coronary artery disease status post CABG #Hypothyroidism Medications at Discharge Home Medications aspirin 81 mg tablet,delayed release (Chelsie Low Dose Aspirin) 81 mg PO DAILY HEART HEALTH 04/12/24 ezetimibe 10 mg tablet 10 mg PO QPM CHOLESTEROL 04/12/24 levothyroxine 100 mcg tablet 100 mcg PO DAILY THYROID 04/12/24 losartan 50 mg tablet 50 mg PO BID BLOOD PRESSURE 04/12/24 amlodipine 10 mg tablet 10 mg PO DAILY 30 days #30 tabs 04/13/24 metoprolol tartrate 50 mg tablet 50 mg PO BID 30 days #60 tabs 04/13/24 Hospital Course Procedures - (heart cath, echo) Summary of Care Provided Minutes Spent on Discharge: 31 Hospital Course: Per HPI: LINA SWENSON, is a 73 M with a history of hypertension, hypothyroidism, CAD status post 5 vessel CABG 10 years ago who presented to [facility] ED 04/12/2024 with chest pressure on exertion for 2 weeks. He was in his usual health until 2 weeks ago he began having left-sided chest pressure worsened on exertion and improved with rest, endorse that sometimes it would persist at rest if he overdid it but that was the exception and more so consistently with exertion and improved with rest. No nausea or shortness of breath with this. Patient hypertensive however reports he has whitecoat syndrome and is feeling anxious and this is typical for him. Had a 5 vessel CABG 10 years ago and followed with cardiology in [place] however patient was offered transfer in the ED and patient preferred to stay at our institution. When he required the CABG 10 years ago he endorses that he had undergone upper and lower endoscopies and when he was waking up from anesthesia he felt very unwell and was brought to the ED and found to have had a heart attack. This does not necessarily feel like it did at that time. Patient has not had any stress test or heart cath for about 10 years. ROS otherwise negative INTERVAL HISTORY: Pain resolved and patient underwent heart cath which showed all bypass vessels open except for saphenous grain to first diagonal and aggressive medical therapy and control of blood pressure was recommended. Discussed with cardiology, patient's blood pressure medications adjusted and he is stable for discharge. On day of discharge patient denies any chest pain, shortness of breath, other new or acute complaints. Verbalizes understanding of better controlled blood pressure. No new questions or concerns, discharge instructions as followed: -You have been started on amlodipine and metoprolol for your blood pressure which she will take in addition to your losartan -Please take your blood pressure daily in the morning and log this. If there are any questions or concerns please contact your primary care physician or heart doctor -You will continue your aspirin and you currently take ezetimibe. Consider discussing atorvastatin or other statin addition with your primary care physician if they think that this is warranted given your heart history -Check your incisions every day for signs of infection which would include redness, swelling, leaking. It is normal to have a small bruise or bump where the catheter was placed but a bruise that is getting larger is not normal. Please tell your healthcare team about this. Please proceed to the emergency department if you have uncontrollable bleeding from the site. -It is important to eat a diet that is low in fat, salt, and cholesterol -Okay to shower from the day after your heart catheterization but keep your incision site clean and dry. Blood pressure monitoring recommendations: -Don't smoke or drink coffee for 30 minutes before measuring your blood pressure. -Go to the bathroom before the test. -Relax for 5 minutes before taking the measurement. -Sit correctly. Be sure your back is supported. Don't sit on a couch or soft chair. Uncross your feet and place them flat on the floor. Place your arm on a solid, flat surface like a table with the upper arm at heart level. Make certain the middle of the cuff is directly above the bendof the elbow. Check the monitor's instruction manual for an illustration. -Take multiple readings. When you measure, take 2 or 3 readings 1 minute apart and record all of the results. -Take your blood pressure at the same time every day, or as your healthcare provider recommends. -Record the date, time, and blood pressure reading. -Take the record with you to your next appointment. If your blood pressure monitor has a built-in memory, simply take the monitor with you to your next appointment. -Call your provider if you have several high readings. Don't be frightened by a single high reading, but if you get several high readings, check in with your healthcare provider. Note: When blood pressure reaches a systolic (top number) of 180 or higher or a diastolic (bottom number) of 110 or higher, Call your healthcare provider right away. -Please call your primary care provider's office upon discharge to schedule a hospital follow up within 1 week. -For any concerning signs or symptoms please call 911 or proceed to the nearest emergency department Physical Exam Narrative General: Alert, oriented, no apparent distress HEENT: Atraumatic, normocephalic Eyes: Anicteric, normal conjunctiva, extraocular movements grossly intact Neck: Supple Respiratory: Clear to auscultation bilaterally, normal respiratory effort Cardiovascular: Regular rate and rhythm GI: Soft, nontender, nondistended Extremities: No edema Musculoskeletal: Moving all extremities Neuro: No overt focal neurological deficits Skin: No rashes appreciated Psych: Cooperative Weight / BMI Weight Weight: 86.4 kg Body Mass Index (BMI) 26.5 ABG / Lab / Microbiology Data 04/13/24 06:16 04/13/24 06:16 Laboratory: Laboratory Results - last 24 hr 04/12/24 11:00: WBC 10.3, RBC 5.20, Hgb 16.6 H, Hct 48.3, MCV 92.9, MCH 31.9, MCHC 34.4, RDW Std Deviation 44.0 H, RDW Coeff of Jennie 13.0, Plt Count 237, MPV 10.7, Immature Gran % (Auto) 0.500, Neut % (Auto) 70.1 H, Lymph % (Auto) 21.6, Gallia % (Auto) 6.5, Eos % (Auto) 0.8, Baso % (Auto) 0.5, Absolute Neuts (auto) 7.2, Absolute Lymphs (auto) 2.23, Nucleated RBC % 0, Sodium 139, Potassium 3.7, Chloride 103, Carbon Dioxide 26.0, Anion Gap 10, BUN 16, Creatinine 1.22, Estim Creat Clear Calc 58.29, Est GFR (MDRD) Af Amer 75, Est GFR (MDRD) Non-Af 62, BUN/Creatinine Ratio 13.1, Glucose 139 H, Calcium 9.7, Troponin I High Sens 6 04/12/24 13:20: Troponin I High Sens 14 04/12/24 17:04: Troponin I High Sens 22 04/13/24 06:16: WBC 9.2, RBC 5.27, Hgb 16.5, Hct 49.0, MCV 93.0, MCH 31.3, MCHC 33.7, RDW Std Deviation 44.7 H, RDW Coeff of Jennie 13.0, Plt Count 243, MPV 9.8, Immature Gran % (Auto) 0.200, Neut % (Auto) 63.9, Lymph % (Auto) 26.3, Gallia % (Auto) 7.6, Eos % (Auto) 1.7, Baso % (Auto) 0.3, Absolute Neuts (auto) 5.9, Absolute Lymphs (auto) 2.41, Nucleated RBC % 0, PT 13.8, INR 1.1, Sodium 138, Potassium 3.9, Chloride 107, Carbon Dioxide 24.0, Anion Gap 7, BUN 15, Creatinine 1.05, Estim Creat Clear Calc 67.73, Est GFR (MDRD) Af Amer 89, Est GFR (MDRD) Non-Af 74, BUN/Creatinine Ratio 14.3, Glucose 114 H, Calcium 9.5, Magnesium 2.0, Total Bilirubin 1.00, Direct Bilirubin 0.18, AST 21, ALT 28, Alkaline Phosphatase 104, Total Protein 7.1, Albumin 3.7, Globulin 3.4, Triglycerides 97, Cholesterol 194, LDL Cholesterol 127, VLDL Cholesterol 19, HDL Cholesterol 48, TSH 3.750 H Radiography Diagnostic Testing: Radiology Impression Chest X-Ray 04/12/24 11:20 IMPRESSION: No radiographic evidence of acute cardiopulmonary disease. Electronically Signed: Lion Culver MD at 11:58 EDT , Echocardiogram 04/12/24 13:04 Interpretation Summary Normal LV size. Left ventricular systolic function is normal. The left ventricular ejection fraction is 65 %. Stage 1 diastolic dysfunction. Ordering Physician: Cristela Hoang Referring Physician: SHERWIN LOPEZ Performed By: Diann Steven RCS D/C Instructions Discharge Diet: - (DASH diet) Meaningful Use Info Meaningful Use Meaningful Use Diagnoses (Choose all that apply): None applicable Ischemic Stroke Statin Dosing Therapy Reference: STATIN DOSE THERAPY REFERENCE: * Patients > 75 years receive moderate or high dose statin therapy. * Patients 75 years or YOUNGER should receive HIGH intensity statin dose unless contraindicated. You will be required to document reason for non-treatment if statin daily dose does not meet guidelines. HIGH DOSE STATIN THERAPY DAILY Atorvastatin > than or = to 40 mg Rosuvastatin > than or = to 20 mg Amlodipine + Atorvastatin > than or = to 2.5/40 mg Ezetimibe + Simvastatin 10/80 mg Simvastatin 80mg Discharge Plan Admission Admit Date/Time: 04/12/24 12:30 Primary Reason for Your Visit: Chest pain, high blood pressure Attending Provider: Cristela Hoang Primary Care Provider: Sherwin Lopez PRECISION AGRICULTURE SPECIALIST Consulting Providers: Ang Rose Instructions Patient Instructions: ED High Blood Pressure Hypertension Additional Instructions / Restrictions: DISCHARGE INSTRUCTIONS PLEASE READ *Please take this with you to your next doctors appointment* -You have been started on amlodipine and metoprolol for your blood pressure which she will take in addition to your losartan -Please take your blood pressure daily in the morning and log this. If there are any questions or concerns please contact your primary care physician or heart doctor -You will continue your aspirin and you currently take ezetimibe. Consider discussing atorvastatin or other statin addition with your primary care physician if they think that this is warranted given your heart history -Check your incisions every day for signs of infection which would include redness, swelling, leaking. It is normal to have a small bruise or bump where the catheter was placed but a bruise that is getting larger is not normal. Please tell your healthcare team about this. Please proceed to the emergency department if you have uncontrollable bleeding from the site. -It is important to eat a diet that is low in fat, salt, and cholesterol -Okay to shower from the day after your heart catheterization but keep your incision site clean and dry. Blood pressure monitoring recommendations: -Don't smoke or drink coffee for 30 minutes before measuring your blood pressure. -Go to the bathroom before the test. -Relax for 5 minutes before taking the measurement. -Sit correctly. Be sure your back is supported. Don't sit on a couch or soft chair. Uncross your feet and place them flat on the floor. Place your arm on a solid, flat surface like a table with the upper arm at heart level. Make certain the middle of the cuff is directly above the bendof the elbow. Check the monitor's instruction manual for an illustration. -Take multiple readings. When you measure, take 2 or 3 readings 1 minute apart and record all of the results. -Take your blood pressure at the same time every day, or as your healthcare provider recommends. -Record the date, time, and blood pressure reading. -Take the record with you to your next appointment. If your blood pressure monitor has a built-in memory, simply take the monitor with you to your next appointment. -Call your provider if you have several high readings. Don't be frightened by a single high reading, but if you get several high readings, check in with your healthcare provider. Note: When blood pressure reaches a systolic (top number) of 180 or higher or a diastolic (bottom number) of 110 or higher, Call your healthcare provider right away. -Please call your primary care provider's office upon discharge to schedule a hospital follow up within 1 week. -For any concerning signs or symptoms please call 911 or proceed to the nearest emergency department Discharge Orders/Prescriptions Prescriptions: New amlodipine 10 mg Tablet 10 mg PO DAILY 30 Days Qty: 30 0RF metoprolol tartrate 50 mg Tablet 50 mg PO BID 30 Days Qty: 60 0RF Continued losartan 50 mg tablet 50 mg PO BID levothyroxine 100 mcg tablet 100 mcg PO DAILY aspirin [Chelsie Low Dose Aspirin] 81 mg tablet,delayed release (DR/EC) 81 mg PO DAILY ezetimibe 10 mg tablet 10 mg PO QPM Referrals / Follow Up: Sherwin Lopez PRECISION AGRICULTURE SPECIALIST, PRECISION AGRICULTURE SPECIALIST-C [Primary Care Provider] - Within 1 Week Disposition Disposition (needs filled in before D/C Order can be placed): Home, Self Care Charges/Coding Visit Charges Inpatient E&M: 33389 Disch Hosp >30min
--- NOTE | 2024-04-13 11:12 | CASEMGMT ---
Patient has order for discharge. RN CM in to discuss needs at discharge, family at bedside. Patient denies needs or help at discharge. Patient had no further questions or concerns.
== END 2024-04-13 13:51 | disposition home or self-care (01) ==
LOC: ED 11:56 → PCU 12:44
PROVIDERS: Admitting Provider Internal Medicine; Emergency Provider Emergency Medicine; PCP Nurse Practitioner Family; Visit Provider Internal Medicine
DX: I25.110 Atherosclerotic heart disease of native coronary artery with unstable angina pectoris (principal); Z95.1 Presence of aortocoronary bypass graft; Z87.891 Personal history of nicotine dependence; I10 Essential (primary) hypertension; R07.89 Other chest pain; E03.9 Hypothyroidism, unspecified; Z79.899 Other long term (current) drug therapy; R01.1 Cardiac murmur, unspecified; Z79.890 Hormone replacement therapy; Z79.82 Long term (current) use of aspirin
CPT/HCPCS: 36415; 71045; 80048; 80061; 80076; 83735; 84443; 84484; 85025; 85610; 93005; 93306; 93459; 96374; 99152; 99153; 99221; 99284; C1894; J7030; Q9967; C1769; G0378